=== PATIENT | male | born 1960 | race Caucasian/White ===

== ENCOUNTER 2020-05-01 22:25 | Inpatient (IN) | payer MEDICARE, MEDICAID ==
[~2020-05-01] VITALS: Ht 180.3 cm; Wt 87.8 kg
[2020-05-01 22:30] VITALS: BP 115/98
--- NOTE | 2020-05-01 22:30 | NUR ---
ED Nurse Note: Patient brought in by BLS ambulance from [facility] for altered mental status. Per EMS, pt is normally alert and oriented. Patient obtunded, nonverbal, does not respond to verbal stimuli. Patient placed on monitoring specialist. Patient per EMS also normally is on 2L nasal cannula, O2 sat upon assessment 100% Patient stable during assessment. ERMD at bedside. Noted some dried blood on exterior of left ear, no active bleeding. IV established on left AC 22g, sepsis workup drawn and blood cultures sent to lab. Urine collected and sent to lab. Patient had 1 BM prior to arrival, pt cleaned and changed. No acute distress noted. Addendum: 05/02/20 at 0012 by IOROPEL ED Nurse Note: Patient brought in by BLS ambulance from [facility] for altered mental status. Per EMS, unknown baseline d/t patient in process of being transferred to a different facility and [facility] is being evacuated. Patient obtunded, nonverbal, does not respond to verbal stimuli. Patient placed on monitoring specialist. Patient per EMS also normally is on 2L nasal cannula, O2 sat upon assessment 100% Patient stable during assessment. ERMD at bedside. Noted some dried blood on exterior of left ear, no active bleeding. IV established on left AC 22g, sepsis workup drawn and blood cultures sent to lab. Urine collected and sent to lab. Patient had 1 BM prior to arrival, pt cleaned and changed. No acute distress noted.
--- NOTE | 2020-05-01 22:43 | NUR ---
CALL INFO VLADISLAV,SON [phone]- NO ANSWER, LEFT VOICEMAIL MANUEL, BROTHER [phone]- NO ANSWER, LEFT VOICEMAIL XIMENA, NIECE [phone]. NO ANSWER
[2020-05-01] MEDS ORDERED: AMLODIPINE BESYL5 MG GT (22:48)
[2020-05-01] MEDS ORDERED: ASPIR 8181 MG GT (22:49)
[2020-05-01] MEDS ORDERED: DOCUSATE SODIU100 MG GT (22:50)
[2020-05-01] MEDS ORDERED: ZINC SULFATE220 M1 GT (22:51)
[2020-05-01] MEDS ORDERED: PROBIOTIC1 EAC2 GT (22:52)
[2020-05-01] MEDS ORDERED: MULTI-VITE9 MG/15 ML GT (22:53)
[2020-05-01] MEDS ORDERED: ALBUTEROL2.5 MG/3 M INH (22:53)
--- NOTE | 2020-05-01 22:53 | Emergency Room Report ---
History of Present Illness General Chief Complaint: Altered Mental Status Source: Medical Record, EMS Present Illness HPI This is an unfortunate 60-year-old male from shelter. He has a history of seizure and currently on Keppra. He is contracted and has a feeding tube. History is through the EMS personnel. He presents with chief complaint of altered mental status. Patient was in a nursing facility in [facility]. He tested positive for COVID on April 27. Per EMS, the vast majority of the patient there is positive for COVID. The whole place is being evacuated. They said that the nursing staff there walked out of the facility. Because of that, patients are being transferred out. This patient was sent from facility in [facility] to [facility]. Per EMS, they do not know what his baseline mental status is. 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 On arrival to the shelter here in [place], nursing staff assessed the patient. Patient noted to have dried blood to his left ear. He appeared to have disconjugate gaze and was lipsmacking. He does have a history of seizure and is currently taking Keppra. According to EMS, the medication list showed that he has not received any medications for 24 hours. They asked that the patient be transferred to the nearest ER for evaluation. I attempted to called the next of kin on his face sheet from the shelter. No answers from the 3 numbers listed. Nursing staff left a voicemail. There is no POLST on file. Unable to get any other history from this patient because he is nonverbal. 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 COVID-19 Screening: Positive COVID-19 COVID-19 Testing Source: outside facility Patient History Past Medical History: see triage record, old chart reviewed, HTN, CAD, seizures Past Surgical History: other - Feeding tube Pertinent Family History: none Social History: Denies: drug use Immunizations: other Reviewed Nursing Documentation: PMH: Agreed; PSxH: Agreed Nursing Documentation-PMH Hx Hypertension: Yes Hx COPD: Yes - chronic resp failure, pneumonitis Hx Seizures: Yes Review of Systems Constitutional: Reports: weakness Respiratory: Reports: shortness of breath All Other Systems: limited - Secondary to his condition and unknown baseline Physical Exam Vital Signs Date Time Temp Pulse Resp B/P (MAP) Pulse Ox O2 Delivery O2 Flow Rate FiO2 05/01/20 22:32 109 20 140/89 (106) 100 Nasal Cannula 2.0 Vitals with fever and hypoxia. Also with tachycardia Sp02 EP Interpretation: abnormal General Appearance: mild distress, Chronically Ill Head: normocephalic, atraumatic Eyes: bilateral eye PERRL, bilateral eye EOMI, bilateral eye other - Patient has disconjugate gaze. Unknown baseline. ENT: dry mucus membranes, other - Left ear: There is mild edema to the earlobe with dried blood. No active bleeding in the canal. Behind the ear there is maceration of the skin over the mastoid area. No crepitance. Neck: no bony tend Respiratory: chest non-tender, accessory muscle use, wheezing - Slight Cardiovascular #1: regular rate, rhythm, no murmur, tachycardia Gastrointestinal: normal bowel sounds, non tender, no mass, no organomegaly, no bruit, non-distended, other - Feeding tube intact Musculoskeletal: other - Patient is contracted Neurologic: other - Grimace to painful stimuli. Rhythmic movement of his mouth Psychiatric: other Medical Decision Making Diagnostic Impression: Primary Impression: Pneumonia due to COVID-19 virus Additional Impressions: SHERRIE (acute kidney injury) Acute metabolic encephalopathy Seizure Sepsis Qualified Codes: A41.9 - Sepsis, unspecified organism ER Course This patient presents with altered mental status. Positive for COVID on April 27. Chest x-ray consistent with COVID pneumonia. Antibiotics started. I also gave him steroid and Lovenox here. Has lipsmacking may be secondary to seizure. Better with Ativan. Keppra also given. CT head is negative for acute process. Will admit to the hospital for further work-up. I discussed the case with Dr. García for admission. EKG Diagnostic Results Rate: tachycardiac Rhythm: NSR ST Segments: no acute changes Rhythm Strip Diag. Results EP Interpretation: yes Rate: 100 Rhythm: NSR, no PVC's, no ectopy Chest X-Ray Diagnostic Results Chest X-Ray Diagnostic Results : Chest X-Ray Ordered: Yes # of Views/Limited/Complete: 1 View Indication: Shortness of Breath EP Interpretation: Yes Interpretation: no effusion, no pneumothorax, other - Right lower lobe infiltrate Impression: Other - Right lower lobe infiltrate and atelectasis Electronically Signed by: Kiran Brown MD CT/MRI/US Diagnostic Results CT/MRI/US Diagnostic Results : Imaging Test Ordered: CT head Impression No acute process per radiologist Last Vital Signs Date Time Temp Pulse Resp B/P (MAP) Pulse Ox O2 Delivery O2 Flow Rate FiO2 05/01/20 22:32 109 20 140/89 (106) 100 Nasal Cannula 2.0 Status: improved Disposition: ADMITTED INPATIENT Condition: Serious Referrals: NON PHYSICIAN (PCP) Kiran Brown MD May 01, 2020 22:53
[2020-05-01] MEDS ORDERED: FAMOTIDINE20 MG GT (22:54)
[2020-05-01] MEDS ORDERED: FERROUS SULFAT325 MG GT (22:55)
[2020-05-01] MEDS ORDERED: LEVETIRACETAM500 MG GT (22:56)
[2020-05-01] MEDS ORDERED: VITAMIN C500 M1 GT (22:57)
[2020-05-01] MEDS ORDERED: LIQUID PROTEIN54 ML GT (22:57)
[2020-05-01] MEDS ORDERED: HYDRALAZINE HCL10 MG GT (22:58)
[2020-05-01] MEDS ORDERED: LACTULOSE20 GM/301 GT (22:59)
[2020-05-01] MEDS ORDERED: levETIRAcetam 1,000mg/NS100ml 100 ML IVPB ONE (23:00)
[2020-05-01] MEDS ORDERED: LORazepam Inj 2mg/ml 1ml IV ONE (23:00)
[2020-05-01] MEDS ORDERED: Acetaminophen 650 MG SUPP RECTAL ONE (23:00)
[2020-05-01] MEDS ORDERED: MILK OF MA400 MG/51 GT (23:00)
[2020-05-01] MEDS ORDERED: TRAMADOL HCL50 MG GT (23:01)
[2020-05-01] MEDS ORDERED: TYLENOL EXTRA500 MG ORAL (23:02)
--- NOTE | 2020-05-01 23:09 | NUR ---
ED Nurse Note: Patient taken to CT in stable condition
[2020-05-01 23:10] LABS: BASOPHILS % (AUTO) 0.9 % (0.0-2.0); EOSINOPHILS % (AUTO) 0.5 % (0.0-3.0); HEMATOCRIT 38.3 % (42.0-52.0); HEMOGLOBIN 12.3 G/DL (14.2-18.0); LYMPHOCYTES % (AUTO) 31.4 % (20.0-45.0); MEAN CORPUSCULAR VOLUME 88 FL (80-99); MONOCYTES % (AUTO) 9.9 % (1.0-10.0); NEUTROPHILS % (AUTO) 57.3 % (45.0-75.0); PLATELET COUNT 189 K/UL (150-450); RED BLOOD COUNT 4.35 M/UL (4.70-6.10); RED CELL DISTRIBUTION WIDTH 13.5 % (11.6-14.8); WHITE BLOOD COUNT 4.6 K/UL (4.8-10.8)
[2020-05-01 23:10] LABS: APPEARANCE,URINE CLEAR; BILIRUBIN, URINE NEGATIVE (NEGATIVE); GLUCOSE, URINE (UA) NEGATIVE (NEGATIVE); KETONES,URINE NEGATIVE (NEGATIVE); LEUKOCYTE ESTERASE ,URINE NEGATIVE (NEGATIVE); NITRITE,URINE NEGATIVE (NEGATIVE); PH,URINE 6 (4.5-8.0); PROTEIN,URINE 2+ (NEGATIVE); UROBILINOGEN,URINE NORMAL MG/DL (0.0-1.0)
[2020-05-01 23:11] LABS: COLOR,URINE YELLOW
[2020-05-01] MEDS ORDERED: dexAMETHasone 10mg/ml Inj IV ONE (23:15)
[2020-05-01 23:26] LABS: ANION GAP 6 mmol/L (5-15); BLOOD UREA NITROGEN 40 mg/dL (7-18); CALCIUM 8.8 MG/DL (8.5-10.1); CARBON DIOXIDE 32 MMOL/L (21-32); CHLORIDE 103 MMOL/L (98-107); CREATININE 1.6 MG/DL (0.55-1.30); POTASSIUM 4.4 MMOL/L (3.5-5.1); SODIUM 141 MMOL/L (136-145)
[2020-05-01] MEDS ORDERED: Azithromycin 500 MG in NS 275 ML IV ONE (23:30)
[2020-05-01] MEDS ORDERED: cefTRIAXone 1 GM in NS 55 ML IVPB ONE (23:30)
[2020-05-01] MEDS ORDERED: Enoxaparin 100mg Inj SUBQ ONE (23:30)
[2020-05-01 23:42] LABS: ALANINE AMINOTRANSFERASE 66 U/L (12-78); ALBUMIN 3.3 G/DL (3.4-5.0); ALBUMIN/GLOBULIN RATIO 0.5 (1.0-2.7); ALKALINE PHOSPHATASE 102 U/L (46-116); ASPARTATE AMINO TRANSFERASE 53 U/L (15-37); BILIRUBIN,TOTAL 0.2 MG/DL (0.2-1.0); FERRITIN 268 NG/ML (8-388)
--- NOTE | 2020-05-01 23:51 | Diagnostic Imaging Report ---
CT head without contrast History: Altered mental status Technique: Axial noncontrast head CT with coronal, sagittal reformatted images. Technique more: CTDI is 53.4 mGy and DLP is 1045 mGy-cm. Technique more: One or more of the following dose reduction techniques were used: automated exposure control, adjustment of the mA and/or kV according to patient size, use of iterative reconstruction technique. Comparison: None Findings: Amador-white matter differentiation is seen to be normal. 1 cm old lacunar infarcts noted in the left periventricular white matter and basal ganglia. Small old lacunar infarcts in medial aspect of left greater than right thalamus. Small lacunar Infarct in the right putamen. Involutional changes are seen especially in the posterior fossa. Fourth ventricle, cerebellopontine angles are normal. Valerian degeneration is seen in the left cerebral peduncle. Paranasal sinuses, mastoid air cells are noted to be normal. IMPRESSION: 1. No acute intracranial finding. 2. Bilateral old lacunar infarcts.
[2020-05-02] VITALS: BP 123/84
[2020-05-02] MEDS ORDERED: Acetaminophen 650 MG SUPP RECTAL PRN
--- NOTE | 2020-05-02 00:18 | NUR ---
ED Nurse Note: Report given to ANUSHA Arredondo.
--- NOTE | 2020-05-02 00:25 | NUR ---
TRANSFER TO FLOOR: Patient transferred to telemetry as ordered, per ERMD. Report given to ANUSHA Arredondo. Patient transported via gurney on ACLS protocol with cardiac specialist accompanied by RN and tire technician in stable condition.
--- NOTE | 2020-05-02 01:36 | NUR ---
NURSE NOTES: Received patient report from LEANNA Mercer RN. Patient shows no signs of distress or pain at the time. Patient is AO x0 and non verbal. Patient is contacted on the right arm and bilateral legs and feet. Patient showed many pressure ulcers on feet and buttocks, pictures were taken. IV site is intact and patent. There are no signs of erythema, infiltration, or bleeding. Patient arrived to unit on 2 L nasal canula and saturating at 98%. Vitals are within range. Bed is in the lowest position, side rails up x3 and padded, and call light is within reach. Will continue plan of care.
[2020-05-02 04:00] VITALS: BP 129/82
[2020-05-02 04:57] LABS: HEMATOCRIT 34.4 % (42.0-52.0); HEMOGLOBIN 10.8 G/DL (14.2-18.0); MEAN CORPUSCULAR VOLUME 88 FL (80-99); PLATELET COUNT 160 K/UL (150-450); RED BLOOD COUNT 3.91 M/UL (4.70-6.10); WHITE BLOOD COUNT 3.3 K/UL (4.8-10.8)
[2020-05-02 05:05] LABS: ANION GAP 6 mmol/L (5-15); BLOOD UREA NITROGEN 35 mg/dL (7-18); CARBON DIOXIDE 28 MMOL/L (21-32); CHLORIDE 108 MMOL/L (98-107); CREATININE 1.4 MG/DL (0.55-1.30); POTASSIUM 4.8 MMOL/L (3.5-5.1); SODIUM 142 MMOL/L (136-145)
--- NOTE | 2020-05-02 07:39 | NUR ---
NURSE HAND-OFF REPORT: Important Events on Shift:Patient had over 10 cc of residual. Patient Status: Diet: Pending Orders: Pending Results/Labs: Pending MD notification: Latest Vital Signs: Temperature 98.8 , Pulse 90 , B/P 129 /82 , Respiratory Rate 28 , O2 SAT 95 , Nasal Cannula, O2 Flow Rate 2.0 . Vital Sign Comment: EKG Rhythm: Sinus Rhythm Rhythm change?: N MD Notified?: - MD Response: Latest Bergman Fall Score: 55 Fall Risk: High Risk Safety Measures: Call light Within Reach, Bed Alarm Zone 2, Side Rails Side Rails x2, Bed position Low and Locked. Fall Precautions: Yellow Socks Yellow Gown Patient Fall Education Report given to .
[2020-05-02 08:00] VITALS: BP 109/79
--- NOTE | 2020-05-02 08:00 | NUR ---
NURSE NOTES: Received pt from ANUSHA Arredondo. Pt Alert, non verbal. No s/s of acute respiratory and cardiac distress. On O2 2L NC. G-tube feeding running @ 20 cc/hr. SL on left AC, asymptomatic, patent and intact. F/C draining by gravity. Side rails padded. Bed in low position, side rails up x3 and call light within reach. Will continue to monitor.
[2020-05-02 09:47] LABS: ALANINE AMINOTRANSFERASE 59 U/L (12-78); ALBUMIN 2.7 G/DL (3.4-5.0); ALKALINE PHOSPHATASE 81 U/L (46-116); ASPARTATE AMINO TRANSFERASE 44 U/L (15-37); BILIRUBIN,DIRECT 0.1 MG/DL (0.0-0.3); BILIRUBIN,TOTAL 0.2 MG/DL (0.2-1.0); PHOSPHORUS 3.1 MG/DL (2.5-4.9)
[2020-05-02 10:26] LABS: % IRON SATURATION 11 % (15-50); IRON 22 ug/dL (50-175); TOTAL IRON BINDING CAPACITY 194 ug/dL (250-450)
--- NOTE | 2020-05-02 10:43 | Consultation ---
Consult Note Consult Note Asked to evaluate the patient at the request of Dr. Colon for renal failure and fluid and electrolyte management Chief Complaint: Altered Mental Status This is an unfortunate 60-year-old male from half-way. He has a history of seizure and currently on Keppra. He is contracted and has a feeding tube. History is through the EMS personnel. He presents with chief complaint of altered mental status. Patient was in a nursing facility in [facility]. He tested positive for COVID on April 27. Per EMS, the vast majority of the patient there is positive for COVID. The whole place is being evacuated. They said that the nursing staff there walked out of the facility. Because of that, patients are being transferred out. This patient was sent from facility in [facility] to [facility]. Per EMS, they do not know what his baseline mental status is. 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 On arrival to the half-way here in [place], nursing staff assessed the patient. Patient noted to have dried blood to his left ear. He appeared to have disconjugate gaze and was lipsmacking. He does have a history of seizure and is currently taking Keppra. According to EMS, the medication list showed that he has not received any medications for 24 hours. They asked that the patient be transferred to the nearest ER for evaluation. 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 Also with tachycardia Patient is nonverbal PHYSICAL EXAMINATION: VITAL SIGNS: Blood pressure is 140/89, respirations of 20, pulse of 109, and O2 saturation 100% on 2 L oxygen via nasal cannula. GENERAL: The patient is a very unfortunate 60-year-old chronically ill patient in mild distress. HEENT: Atraumatic and normocephalic. Anicteric. Pupils are equal, round, and reactive to light and accommodation. Extraocular muscles intact. The patient has a dysconjugate gaze. Positive dry mucosal membranes. Left ear with mild edema and dry blood. No active bleeding. NECK: JVP less than 5 cm. CARDIOVASCULAR: Normal S1, S2. Regular rhythm, tachycardic. No murmurs, gallops, or rubs. LUNGS: Clear to auscultation bilaterally. ABDOMEN: Soft, nontender, and nondistended. No hepatosplenomegaly. Presence of a G-tube. EXTREMITIES: Grimace to painful stimuli. Contracted limbs. Rhythmic movement of his mouth was appreciated. No edema, clubbing, or cyanosis. LABORATORY FINDINGS: Sodium was 141, potassium 4.4, chloride 103, bicarbonate 32, BUN 40, creatinine 1.6. Glucose 106. Calcium is 8.8. Troponin I 0.001. WBC 4.6, hemoglobin 12.3, hematocrit 38.3, and platelet count 189,000. D-dimer is 4.65. CT of head showed no acute intracranial findings. Bilateral old lacunar infarct. . Assessment/Plan Acute renal failure. Patient presents with serum creatinine of 1.6. Underlying chronic renal insufficiency. Serum creatinine 1.4 after hydration. Pneumonia due to COVID-19 virus Acute metabolic encephalopathy Seizures Sepsis Nonverbal, with GT feeding Anemia Per ID Monitor renal parameters Albumin bolus Per orders Adal Kenney MD May 02, 2020 10:43
[2020-05-02] MEDS ORDERED: HydrALAZINE 10mg Tab GT PRN (10:45)
[2020-05-02] MEDS ORDERED: traMADol 50mg tab GT PRN (10:45)
--- NOTE | 2020-05-02 10:54 | NUR ---
RD ASSESSMENT & RECOMMENDATIONS SEE CARE ACTIVITY FOR COMPLETE ASSESSMENT DAILY ESTIMATED NEEDS: Needs based on Pulmonary, wound 80.5kg abw 23-28 kcals/kg 7847-5844 total kcals 1.25-1.5 g protein/kg 101-121 g total protein 25-30 mL/kg 3562-6262 total fluid mLs NUTRITION DIAGNOSIS: Swallowing difficulty r/t dysphagia as evidenced by Pt is GT dep. CURRENT TF: Jevity 1.2 @20 ENTERAL NUTRITION RECOMMENDATIONS: Glucerna 1.5 @55ml/hr x24 hrs to provide 1320ml, 1980 kcal, 109g pro, 1002ml free H2O - Rec TF change to carb control formula as pt presents w/ elev BG on low rate of non carb control TF and on steroidal meds at this time. - Start Glucerna 1.5 @25ml/hr for 6 hrs. Advance as tolerated 10ml/hr q4-6 hrs to goal. - Flush per MD. HOB over 30 degrees. ADDITIONAL RECOMMENDATIONS: 1) Maintain calibrated bed scale wts 2) BG mildly elev (156), rec above carb control formula while on decadron 3) Check lytes, replete as needed (wnl) 4) Rec WC eval 5) NISS on TF's
[2020-05-02] MEDS: levETIRAcetam 500mg/5ml Liquid GT SCH ×2 (11:52→20:47)
[2020-05-02 12:00] VITALS: BP 107/70
[2020-05-02] MEDS: Docusate 100mg/10ml Liq GT SCH ×2 (13:16→17:31)
[2020-05-02] MEDS: cefTRIAXone 1 GM in D5W 55 ML IVPB SCH (15:16)
[2020-05-02 16:00] VITALS: BP 127/82
--- NOTE | 2020-05-02 16:04 | Diagnostic Imaging Report ---
Indication: Cough Technique: One view of the chest Comparison: none Findings: There is mild bilateral interstitial prominence and bronchial wall thickening. The heart is borderline enlarged. The left lateral hemidiaphragm is somewhat obscured. There is some atelectasis adjacent to the left cardiac apex Impression: Mild interstitial prominence and bronchial wall thickening, acuity indeterminate, could indicate interstitial edema or chronic changes Borderline cardiomegaly
--- NOTE | 2020-05-02 16:15 | Consultation ---
DATE OF CONSULTATION: 05/02/2020 PULMONARY CONSULTATION CONSULTING PHYSICIAN: Yoseph Khoury MD. REASON FOR CONSULTATION: Altered mental status and pneumonia. HISTORY OF PRESENT ILLNESS: This is a 60-year-old male, who is a shelter resident. He has a history of seizure disorder and is on Keppra. The patient was brought in after being testing positive for COVID-19. The patient was evaluated and admitted to the hospital. The patient has a history of seizure disorder and has a chronic G-tube. PAST MEDICAL HISTORY: Notable for hypertension, CAD, and seizures. There is also history of COPD. PAST SURGICAL HISTORY: Chronic G-tube. REVIEW OF SYSTEMS: Not obtainable. PHYSICAL EXAMINATION: GENERAL: Reveals a 60-year-old male. VITAL SIGNS: Blood pressure 140/80, heart rate 104, respirations 20, he is afebrile, and O2 saturation is 100% on nasal oxygen. HEENT: Unremarkable. CHEST: Shows diminished breath sounds bilaterally with normal heart sounds. ABDOMEN: Soft. EXTREMITIES: There is no edema. He has bilateral upper extremity contractures. LABORATORY DATA: Lab testing shows white count 3.3, hemoglobin 10.8, platelet count is normal. Creatinine 1.4. Albumin is 2.7. Head CT was done, which was negative. IMPRESSION: 1. COVID-19 pneumonia. 2. Normoxemia. 3. Metabolic encephalopathy. 4. Seizure disorder. DISCUSSION: I have reviewed his x-ray and there are bilateral infiltrates. I suspect he has COVID-19 pneumonia. He received steroids and Lovenox. He is having lip-smacking movements, which maybe seizure disorder. He was given Keppra. Recommend Neurology and ID evaluation. 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 We will order pulmonary hygiene. Yoseph Khoury M.D. DR: MALGORZATA JOB#: [id number] CC:
--- NOTE | 2020-05-02 16:29 | NUR ---
NURSE NOTES:WOUND CARE NOTES:Pt presented on admission with scabbed lesion Medial L ear canal and L earlobe. Dried blood also noted to fingers of L hand. Bilat hands are contracted. L Hand is more tightly fisted in comparison to R hand. Peristomal Gastrostomy site is pale pink and dry. Site cleansed and left open to air. Resolving Pressure injury Sacrum/R Buttocks(L)19.5cm x (W)7cm. Base of wound is pink, indurated with scattered epithelial areas. No erythema noted. Pt did not exhibit any signs of distress or discomfort when affected areas palpated. Several dry scabbed scratches noted to myra/medial upper R thigh. No erythema noted. Bilat foot drop noted. Pt is pigeon -toed and moves both feet restlessly against each other placing skin at risks for skin breakdown. Scattered dry scabs noted to dorsal aspects of both feet.No surrounding erythema or elevation in skin temp noted. Both heels are soft with non-blanching erythema. R and L Hallux protrudes but each area are pink and blanchable. Interventions:R ear swabbed with Betadine. Moisture Barrier Paste applied to Sacrum. Covered with Optifoam drsg. Cavilon Skin Barrier applied to R and L trochanteric areas and each covered with Optifoam drsgs. Scabs dorsal R and L foot each swabbed with Betadine.Cavilon skin barrier applied to malleoli both feet and each covered with Optifoam drsgs. Cavilon Skin Barrier applied to each heels and each heel covered with Optifoam drsgs. In addition abd pads placed around both feet and each foot wrapped with Kerlix to minimize further skin breakdown secondary to restlessness of feet.Pt positioned with pillow on his side and with both heels floated off mattress with pillows. Tx.Plan: Apply Betadine to R ear Daily and prn. Apply Moisture Barrier Paste to Sacrum/R Buttocks. Cover with Optifoam drsg. Change every 3 days and prn. Apply Betadine to upper R thigh , dorsal R and L foot. Cover each area with Optifoam drsg every 3 days and prn. Apply Cavilon Skin Barrier to both heels. Cover each heel with Optifoam drsg. Change every 7 days and prn. Cover each foot with ABD Pads. Wrap with Kerlix. Change every 3 days and prn. Reposition at least every 2hours or as tolerated. Place Pillow between knees. Off-load heels with pillow.
--- NOTE | 2020-05-02 16:38 | NUR ---
CASE MANAGEMENT:INITIAL REVIEW 60YR OLD MALE BIBA FROM [facility] CC: ALTER MENTAL STATUS HX: SEIZURE; FEEDING TUBE SI: COVID-19 + PNA. SEPSIS . SHERRIE . SEIZURE 101.2 109 36 115/98 100% NC 2L D-DIMER 4.65 WBC 4.6 BUN/CREAT 40/1.6 AST 53 ALB 3.3 IS:IV DECADRON X1 IV ZITHROMAX X1 IV ROCEPHIN X1 IVF NS BOLUS X1 IV ATIVAN X1 IV KEPPRA X1 TYLENOL MT X1 LOVENOX SQ X1 CT HEAD- No acute intracranial finding. Bilateral old lacunar infarcts. XRAY Chest 1v-Mild interstitial prominence and bronchial wall thickening, acuity indeterminate, could indicate interstitial edema or chronic changes. Borderline cardiomegaly \: 2E TELE UNIT DCP:[facility] WHEN STABLE PLAN: BLOOD CX~PENDING NPO OXYGEN THERAPY COVID-19 ISOLATION
--- NOTE | 2020-05-02 16:47 | Cardiology Progress Note ---
Assessment/Plan Assessment/Plan The patient is seen and examined, full consult note is dictated. Objective Last 24 Hour Vital Signs Date Time Temp Pulse Resp B/P (MAP) Pulse Ox O2 Delivery O2 Flow Rate FiO2 05/02/20 12:00 98.2 81 20 107/70 (82) 96 05/02/20 12:00 Nasal Cannula 2.0 05/02/20 12:00 84 05/02/20 08:00 96.8 83 20 109/79 (89) 95 05/02/20 08:00 81 05/02/20 04:00 98.8 90 28 129/82 (98) 95 05/02/20 04:00 90 05/02/20 02:04 Nasal Cannula 2.0 05/02/20 00:38 98 05/02/20 00:25 99.1 103 24 119/81 100 Nasal Cannula 2.0 05/02/20 00:00 99.1 94 26 123/84 (97) 96 05/01/20 23:29 99.1 05/01/20 22:32 109 20 140/89 (106) 100 Nasal Cannula 2.0 05/01/20 22:30 109 36 Nasal Cannula 2.0 05/01/20 22:30 101.2 109 36 115/98 100 Nasal Cannula 2.0 Intake and Output 05/01/20 05/02/20 19:00 07:00 Intake Total 1430 ml Output Total 300 ml Balance 1130 ml Intake Oral 0 ml IV Total 1430 ml Output Urine Total 300 ml # Voids 1 # Bowel Movements 2 Laboratory Tests Test 05/01/20 22:40 05/01/20 22:45 05/02/20 04:00 05/02/20 09:10 White Blood Count 4.6 K/UL (4.8-10.8) L 3.3 K/UL (4.8-10.8) L Red Blood Count 4.35 M/UL (4.70-6.10) L 3.91 M/UL (4.70-6.10) L Hemoglobin 12.3 G/DL (14.2-18.0) L 10.8 G/DL (14.2-18.0) L Hematocrit 38.3 % (42.0-52.0) L 34.4 % (42.0-52.0) L Mean Corpuscular Volume 88 FL (80-99) 88 FL (80-99) Mean Corpuscular Hemoglobin 28.1 PG (27.0-31.0) 27.7 PG (27.0-31.0) Mean Corpuscular Hemoglobin Concent 32.0 G/DL (32.0-36.0) 31.4 G/DL (32.0-36.0) L Red Cell Distribution Width 13.5 % (11.6-14.8) 13.0 % (11.6-14.8) Platelet Count 189 K/UL (150-450) 160 K/UL (150-450) Mean Platelet Volume 10.5 FL (6.5-10.1) H 9.2 FL (6.5-10.1) Neutrophils (%) (Auto) 57.3 % (45.0-75.0) % (45.0-75.0) Lymphocytes (%) (Auto) 31.4 % (20.0-45.0) % (20.0-45.0) Monocytes (%) (Auto) 9.9 % (1.0-10.0) % (1.0-10.0) Eosinophils (%) (Auto) 0.5 % (0.0-3.0) % (0.0-3.0) Basophils (%) (Auto) 0.9 % (0.0-2.0) % (0.0-2.0) D-Dimer 4.65 mg/L FEU (0.00-0.49) H Sodium Level 141 MMOL/L (136-145) 142 MMOL/L (136-145) Potassium Level 4.4 MMOL/L (3.5-5.1) 4.8 MMOL/L (3.5-5.1) Chloride Level 103 MMOL/L (98-107) 108 MMOL/L (98-107) H Carbon Dioxide Level 32 MMOL/L (21-32) 28 MMOL/L (21-32) Anion Gap 6 mmol/L (5-15) 6 mmol/L (5-15) Blood Urea Nitrogen 40 mg/dL (7-18) H 35 mg/dL (7-18) H Creatinine 1.6 MG/DL (0.55-1.30) H 1.4 MG/DL (0.55-1.30) H Estimat Glomerular Filtration Rate 44.0 mL/min (>60) 51.4 mL/min (>60) Glucose Level 106 MG/DL (74-106) 156 MG/DL (74-106) H Lactic Acid Level 1.10 mmol/L (0.4-2.0) Calcium Level 8.8 MG/DL (8.5-10.1) 8.0 MG/DL (8.5-10.1) L Ferritin 268 NG/ML (8-388) Total Bilirubin 0.2 MG/DL (0.2-1.0) 0.2 MG/DL (0.2-1.0) Aspartate Amino Transf (AST/SGOT) 53 U/L (15-37) H 44 U/L (15-37) H Alanine Aminotransferase (ALT/SGPT) 66 U/L (12-78) 59 U/L (12-78) Alkaline Phosphatase 102 U/L (46-116) 81 U/L (46-116) Troponin I 0.001 ng/mL (0.000-0.056) C-Reactive Protein, Quantitative 2.5 mg/dL (0.00-0.90) H Total Protein 10.3 G/DL (6.4-8.2) H 8.7 G/DL (6.4-8.2) H Albumin 3.3 G/DL (3.4-5.0) L 2.7 G/DL (3.4-5.0) L Globulin 7.0 g/dL Albumin/Globulin Ratio 0.5 (1.0-2.7) L Urine Color Yellow Urine Appearance Clear Urine pH 6 (4.5-8.0) Urine Specific [place] 1.015 (1.005-1.035) Urine Protein 2+ (NEGATIVE) H Urine Glucose (UA) Negative (NEGATIVE) Urine Ketones Negative (NEGATIVE) Urine Blood Negative (NEGATIVE) Urine Nitrite Negative (NEGATIVE) Urine Bilirubin Negative (NEGATIVE) Urine Urobilinogen Normal MG/DL (0.0-1.0) Urine Leukocyte Esterase Negative (NEGATIVE) Urine RBC 0-2 /HPF (0 - 0) H Urine WBC 0-2 /HPF (0 - 0) Urine Squamous Epithelial Cells Occasional /LPF Urine Bacteria Occasional /HPF (NONE) Uric Acid 8.3 MG/DL (2.6-7.2) H Phosphorus Level 3.1 MG/DL (2.5-4.9) Magnesium Level 2.1 MG/DL (1.8-2.4) Iron Level 22 ug/dL (50-175) L Total Iron Binding Capacity 194 ug/dL (250-450) L Percent Iron Saturation 11 % (15-50) L Unsaturated Iron Binding 172 ug/dL (112-346) Direct Bilirubin 0.1 MG/DL (0.0-0.3) Vitamin B12 Level 1007 PG/ML (193-986) H Folate 27.4 NG/ML (8.6-58.9) Thyroid Stimulating Hormone (TSH) 0.357 uiU/mL (0.358-3.740) Microbiology Date/Time Source Procedure Growth Status 05/02/20 11:57 Nasopharynx SARS-CoV-2 RdRp Gene Assay - Final Complete Timothy Vizcaino MD May 02, 2020 16:47
--- NOTE | 2020-05-02 19:15 | Consultation ---
DATE OF CONSULTATION: 05/02/2020 CARDIOLOGY CONSULTATION CONSULTING PHYSICIAN: Timothy Vizcaino MD. REFERRING PHYSICIAN: Juan J Navarro MD. REASON FOR CONSULTATION: Management of tachycardia and shortness of breath. HISTORY OF PRESENT ILLNESS: The patient is a very unfortunate 60-year-old gentleman who is a resident of a nursing facility. He was tested positive for COVID-19 infection on April 27. The patient was brought to this facility as he was found to have dried blood within the left ear and also had trouble with disconjugate gaze and lip smacking. The patient has history of seizures and has been on Keppra for seizure preventive measures. At the time of evaluation in the emergency department, the patient had blood pressure 140/89 mmHg and heart rate of 109. A 12-lead electrocardiogram in the emergency department showed sinus tachycardia at a rate of 110 with normal axis, prolongation of QT interval, but no acute ischemic features. Chest x-ray was significant for cardiomegaly and mild bilateral pulmonary edema. Laboratory findings in the emergency department revealed elevation of D-dimer at 4.65, elevation of BUN and creatinine of 40 and 1.6 respectively, as well as WBC count of 4.6, hemoglobin of 12.3. Troponin I level was 0.001, within normal limit. The patient was admitted to telemetry for further evaluation and management of shortness of breath and altered level of consciousness. Cardiology consultation was made at request of Dr. Navarro to manage tachycardia and shortness of breath in a patient with COVID-19 infection. PAST MEDICAL HISTORY: 1. Seizure disorder. 2. Hypertension. 3. Coronary artery disease. 4. Dysphagia, status post PEG placement. 5. Chronic respiratory failure. PAST SURGICAL HISTORY: PEG placement. ALLERGIES: No known drug allergies. MEDICATIONS: List of medications in the nursing facility include acetaminophen 650 mg per G-tube q.6 hours p.r.n. temperature above 100.5, albuterol inhaler, amlodipine 5 mg G-tube daily, vitamin C 500 mg G-tube twice daily, aspirin 81 mg G-tube daily, Colace 100 mg G-tube daily, famotidine 20 mg G-tube daily, ferrous sulfate 325 mg G-tube twice daily, hydralazine 10 mg G-tube q.4 hours, probiotic one tablet G-tube daily, lactulose 30 mL G-tube daily p.r.n. constipation, Keppra 500 mg G-tube twice daily, milk of magnesia 30 mL G-tube daily, multivitamin liquid 5 mg G-tube daily, liquid protein fortifier 30 mL G-tube twice daily, tramadol 50 mg G-tube twice daily, and zinc sulfate 220 mg G-tube daily. REVIEW OF SYSTEMS: In view of altered level of consciousness, the patient is currently nonverbal and 12-system review cannot be obtained. SOCIAL HISTORY: There is no prior history of tobacco, alcohol, or illicit drug use. PHYSICAL EXAMINATION: VITAL SIGNS: Blood pressure is 140/89, respirations of 20, pulse of 109, and O2 saturation 100% on 2 L oxygen via nasal cannula. GENERAL: The patient is a very unfortunate 60-year-old chronically ill patient in mild distress. HEENT: Atraumatic and normocephalic. Anicteric. Pupils are equal, round, and reactive to light and accommodation. Extraocular muscles intact. The patient has a dysconjugate gaze. Positive dry mucosal membranes. Left ear with mild edema and dry blood. No active bleeding. NECK: JVP less than 5 cm. CARDIOVASCULAR: Normal S1, S2. Regular rhythm, tachycardic. No murmurs, gallops, or rubs. LUNGS: Clear to auscultation bilaterally. ABDOMEN: Soft, nontender, and nondistended. No hepatosplenomegaly. Presence of a G-tube. EXTREMITIES: Grimace to painful stimuli. Contracted limbs. Rhythmic movement of his mouth was appreciated. No edema, clubbing, or cyanosis. LABORATORY FINDINGS: Sodium was 141, potassium 4.4, chloride 103, bicarbonate 32, BUN 40, creatinine 1.6. Glucose 106. Calcium is 8.8. Troponin I 0.001. WBC 4.6, hemoglobin 12.3, hematocrit 38.3, and platelet count 189,000. D-dimer is 4.65. CT of head showed no acute intracranial findings. Bilateral old lacunar infarct. ASSESSMENT AND PLAN: The patient is a very unfortunate 60-year-old gentleman seen in Cardiology consultation. 1. Sinus tachycardia. This is due to hypoxemia versus infection/sepsis versus severe intravascular volume contraction. It appears that the patient in prerenal picture and contraction alkalosis with bicarbonate of 32 is mostly in favor of intravascular volume contraction. The patient requires to be well hydrated. 2. Dyspnea, most likely COVID-19 pneumonitis. We will like to obtain brain-natriuretic peptide. We will have 2D echocardiography to assess LV systolic and diastolic function. 3. Further therapeutic and diagnostic decision will be based on the results of above studies. I would like to thank Dr. Navarro for the courtesy of this consultation. Timothy Vizcaino M.D. DR: JOHANNE JOB#: [id number] CC:
--- NOTE | 2020-05-02 19:32 | NUR ---
NURSE HAND-OFF REPORT: Important Events on Shift:[] Patient Status: [] Diet: [] Pending Orders: [] Pending Results/Labs:[] Pending MD notification:[] Latest Vital Signs: Temperature 97.7 , Pulse 89 , B/P 127 /82 , Respiratory Rate 18 , O2 SAT 100 , Nasal Cannula, O2 Flow Rate 2.0 . Vital Sign Comment: [] EKG Rhythm: Sinus Rhythm Rhythm change?: N MD Notified?: - MD Response: Latest Bergman Fall Score: 55 Fall Risk: High Risk Safety Measures: Call light Within Reach, Bed Alarm Zone 2, Side Rails Side Rails x3, Bed position Low and Locked. Fall Precautions: Yellow Socks Yellow Gown Report given to [ANUSHA Ervin].
--- NOTE | 2020-05-02 19:33 | NUR ---
NURSE NOTES: Got report from Renita TAVARES. Pt in stable condition. No s/s of distress or discomfort noted. Pt is Covid+. Pt is on seizure precaution siderails padded. Pt is A+OX0 nonverbal bedbound. Pt is on alarm security or surveillance monitor running Sinus Rhythm to Tachycardia(low 100s). Pt is on Room Air sating 94%. Pt is on tube feeding Jevity 1.2@20mL/hr no residual noted. Skin issues noted optifoam intact. Pt has L AC 22g saline locked. Pt has 16fr landeros catheter intact draining to gravity. Pt resting in bed comfortably. Bed in low and locked position, call light within reach, bedside table within reach. Continue to monitor.
[2020-05-02 20:00] VITALS: BP 122/85
[2020-05-02] MEDS: Acetaminophen 650mg/20.3ml GT PRN (20:50)
--- NOTE | 2020-05-02 21:45 | Consultation ---
DATE OF CONSULTATION: 05/02/2020 INFECTIOUS DISEASE CONSULTATION CONSULTING PHYSICIAN: Otoniel Narayan M.D. PRIMARY ATTENDING: Juan J Navarro M.D. REASON FOR CONSULT: Sepsis, COVID-19 disease. HISTORY OF PRESENT ILLNESS: A 60-year-old white male admitted yesterday from a assisted facility because of altered mental status. The patient has a history of seizure disorder, disconjugate gaze and lip smacking. Patient was transferred from a nursing facility in [place] that was highly hit by coronavirus epidemic and all of the residents were evacuated. Patient was transferred to [facility]. At the time of admission, he had a fever with a temperature 101.3, tachycardia with pulse rate of 109. PAST MEDICAL HISTORY: Has history of CVA, aphasia, contracture, seizure disorder, hypertension. He is status post gastrostomy. ALLERGIES: No known drug allergy. MEDICATIONS: Aspirin, famotidine, Colace, Keppra, Tylenol, hydralazine, tramadol Get a dose of ceftriaxone, Zithromax, and dexamethasone in ER SOCIAL HISTORY: [facility] resident. No other history is obtainable. PHYSICAL EXAMINATION: VITAL SIGNS: Temperature 98.2, pulse 81, blood pressure. GENERAL APPEARANCE: No acute distress. normal weight. HEAD AND NECK: [place] conjunctivae. HEART: Normal rate. LUNGS: Clear. ABDOMEN: Soft. G-tube in place. Slight erythematous area around the G-tube. EXTREMITIES: No edema. Contractures of the ankle. GENITOURINARY: Has Gonzales catheter. LABORATORY DATA: WBC 3.3, hemoglobin 10.8, hematocrit 34.4, platelet is 160. Sodium 142, potassium 4.2, chloride 108, bicarb 28, BUN 35, creatinine is 1.4. Creatinine at the time of admission was 1.6. AST is a little elevated at 44. At the time of admission, it was 62. ALT is normal. CRP is elevated, 2.5. COVID-19 test was positive. Chest x-ray of poor quality because of rotation but seems clear. CT scan of the head showed bilateral old lacunar infarcts. IMPRESSION: 1. Sepsis with fever, and tachycardia. 2. COVID-19 disease. 3. Pressure ulcers. There was some bleeding ulcers in left ear. 4. Status post CVA with aphasia. 5. G-tube status. 6. COPD. 7. Hypertension. 8. Seizure disorder. 9. Anemia. 10. Acute renal failure. RECOMMENDATION: Continue with ceftriaxone. We will follow up the cultures.Will check oxygen saturation in room air. At the end of my exam, I thank Dr. Navarro for involving me in the care of this patient. Otoniel Narayan M.D. DR: SLY JOB#: [id number] CC: AMBREEN
--- NOTE | 2020-05-02 22:00 | NUR ---
NURSE NOTES: Notified Dr. Navarro about Ca:8.0 Uric Acid:8.3 Iron:22. called back and said no new orders. Continue to monitor.
--- NOTE | 2020-05-02 22:30 | History and Physical Report ---
DATE OF ADMISSION: 05/01/2020 REASON FOR ADMISSION: Sepsis, COVID pneumonia. The patient tested COVID positive initially on 04/27/20. The patient's x-ray shows bilateral infiltrate. The patient also has acute renal failure, is admitted for positive COVID pneumonia. The patient's basically chief complaint was altered mental status, was in a fpc. The patient is being transferred from the facility that he was originally in. The patient is a poor historian. The patient is nonverbal, cannot get any history from the patient. PAST MEDICAL HISTORY: Patient has history of seizures, history of dementia. Does have history of CAD and hypertension, possible history of CVA in the past, constipation, iron-deficiency anemia, and GERD. PAST SURGICAL HISTORY: PEG. ALLERGIES: No known allergies. FAMILY HISTORY: Unable to obtain. SOCIAL HISTORY: Unable to obtain. REVIEW OF SYSTEMS: Unable to obtain, nonverbal. MEDICATIONS: Tramadol, Colace, aspirin, vitamin C, amlodipine, hydralazine, ferrous sulfate, and Keppra. PHYSICAL EXAMINATION: VITAL SIGNS: Temperature is 98.8, pulse is 90, blood pressure 139/80. HEENT: PERRLA. NECK: Supple. No lymphadenopathy. CHEST: Clear to auscultation. CARDIOVASCULAR: Regular rate and rhythm. No murmurs or extra sounds. GASTROINTESTINAL: Soft. Positive bowel sounds. G-tube site is intact. NEUROLOGICAL: Does not follow neurological exam. Reflexes are equal on both sides. LABORATORY DATA: WBC of 4.6, hemoglobin of 12.3, platelets 189. Sodium is 142, potassium 4.8, BUN of 35, creatinine 1.4, glucose of 156. ASSESSMENT AND PLAN: COVID-positive pneumonia acute renal failure, altered mental status. I have basically consulted Dr. Khoury, Dr. Otoniel Narayan, Dr. Vizcaino, and Dr. Kenney for the azotemia and to rule out any cardiomyopathy related to COVID and also for the treatment of the COVID. Antibiotics per Dr. Otoniel Narayan. Juan J Navarro M.D. DR: OLAMIDE JOB#: [id number] CC:
[2020-05-03] VITALS: BP 128/81
[2020-05-03 04:00] VITALS: BP 114/82
[2020-05-03 06:44] LABS: BASOPHILS % (AUTO) 0.4 % (0.0-2.0); HEMATOCRIT 32.2 % (42.0-52.0); HEMOGLOBIN 10.3 G/DL (14.2-18.0); MEAN CORPUSCULAR VOLUME 88 FL (80-99); MONOCYTES % (AUTO) 10.2 % (1.0-10.0); NEUTROPHILS % (AUTO) 68.4 % (45.0-75.0); PLATELET COUNT 177 K/UL (150-450); RED BLOOD COUNT 3.66 M/UL (4.70-6.10); WHITE BLOOD COUNT 4.7 K/UL (4.8-10.8)
[2020-05-03 07:05] LABS: ALANINE AMINOTRANSFERASE 78 U/L (12-78); ALBUMIN 2.8 G/DL (3.4-5.0); ALBUMIN/GLOBULIN RATIO 0.5 (1.0-2.7); ALKALINE PHOSPHATASE 84 U/L (46-116); ANION GAP 5 mmol/L (5-15); ASPARTATE AMINO TRANSFERASE 59 U/L (15-37); BILIRUBIN,TOTAL 0.2 MG/DL (0.2-1.0); BLOOD UREA NITROGEN 46 mg/dL (7-18); CARBON DIOXIDE 30 MMOL/L (21-32); CHLORIDE 110 MMOL/L (98-107); CREATININE 1.4 MG/DL (0.55-1.30); PHOSPHORUS 2.9 MG/DL (2.5-4.9); POTASSIUM 4.2 MMOL/L (3.5-5.1); SODIUM 145 MMOL/L (136-145)
--- NOTE | 2020-05-03 07:20 | NUR ---
NURSE HAND-OFF REPORT: Important Events on Shift:[] Patient Status: [Stable] Diet: [Tube Feeding Jevity 1.2@20mL/hr] Pending Orders: [] Pending Results/Labs:[05/03 AM Labs] Pending MD notification:[] Latest Vital Signs: Temperature 98.2 , Pulse 81 , B/P 114 /82 , Respiratory Rate 19 , O2 SAT 95 , Room Air. Vital Sign Comment: [Pt on Room Air] EKG Rhythm: Sinus Rhythm Rhythm change?: N MD Notified?: - MD Response: Latest Bergman Fall Score: 55 Fall Risk: High Risk Safety Measures: Call light Within Reach, Bed Alarm Zone 2, Side Rails Side Rails x3, Bed position Low and Locked. Fall Precautions: Yellow Socks Yellow Gown Report given to [Anastasiia RN].
--- NOTE | 2020-05-03 07:51 | NUR ---
NURSE NOTES: Received patient in bed asleep. No SOB or acute distress. IV line intact. Wound dressings intact. Gtube intact, feeding ongoing. FC intact, draining yellow colored urine. HOB elevated. Bed locked in lowest position. Call light within reach. Will continue plan of care.
[2020-05-03 08:00] VITALS: BP 120/80
[2020-05-03] MEDS: Aspirin Baby 81mg GT SCH (08:54)
[2020-05-03] MEDS: Docusate 100mg/10ml Liq GT SCH ×3 (08:55→18:10)
[2020-05-03] MEDS: levETIRAcetam 500mg/5ml Liquid GT SCH ×2 (08:55→20:20)
--- NOTE | 2020-05-03 10:46 | Infectious Diseases Prog Note ---
Assessment/Plan Assessment/Plan IMPRESSION: 1. Sepsis with fever, and tachycardia. 2. COVID-19 disease, mild 3. Pressure ulcers. 4. Status post CVA with aphasia. 5. G-tube status. 6. COPD. 7. Hypertension. 8. Seizure disorder. 9. Anemia. 10. Acute renal failure. 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 RECOMMENDATION: Continue with ceftriaxone Subjective ROS Limited/Unobtainable: Yes Constitutional: Denies: fever Allergies: Coded Allergies: No Known Allergies (Unverified , 05/01/20) Objective Last 24 Hour Vital Signs Date Time Temp Pulse Resp B/P (MAP) Pulse Ox O2 Delivery O2 Flow Rate FiO2 05/03/20 09:00 Room Air 05/03/20 08:00 98.0 85 20 120/80 (93) 96 05/03/20 08:00 86 05/03/20 04:00 98.2 81 19 114/82 (93) 95 05/03/20 04:00 79 05/03/20 00:00 80 05/03/20 00:00 97.9 93 20 128/81 (97) 94 05/02/20 21:43 97.7 05/02/20 21:00 Nasal Cannula 2.0 05/02/20 20:00 99.7 92 20 122/85 (97) 95 05/02/20 20:00 86 05/02/20 16:00 89 05/02/20 16:00 97.7 71 18 127/82 (97) 100 05/02/20 12:00 98.2 81 20 107/70 (82) 96 05/02/20 12:00 Nasal Cannula 2.0 05/02/20 12:00 84 Height (Feet): 5 Height (Inches): 11.00 Weight (Pounds): 198 General Appearance: no acute distress HEENT: mucous membranes moist Respiratory/Chest: no respiratory distress, other - on room air oxygen Cardiovascular: normal rate Abdomen: soft, non tender, other - GT feeding Extremities: no edema, other - contracted Skin: ulcers Neurologic/Psychiatric: aphasia, other - constant lip movements Microbiology Date/Time Source Procedure Growth Status 05/01/20 22:42 Blood Blood Culture - Preliminary NO GROWTH AFTER 24 HOURS Resulted 05/01/20 22:37 Blood Blood Culture - Preliminary NO GROWTH AFTER 24 HOURS Resulted 05/02/20 11:57 Nasopharynx SARS-CoV-2 RdRp Gene Assay - Final Complete 05/01/20 23:25 Rectum VRE Culture - Final Enterococcus Faecalis - Vre Complete Laboratory Tests Test 05/03/20 05:59 05/03/20 10:10 White Blood Count 4.7 K/UL (4.8-10.8) L Red Blood Count 3.66 M/UL (4.70-6.10) L Hemoglobin 10.3 G/DL (14.2-18.0) L Hematocrit 32.2 % (42.0-52.0) L Mean Corpuscular Volume 88 FL (80-99) Mean Corpuscular Hemoglobin 28.0 PG (27.0-31.0) Mean Corpuscular Hemoglobin Concent 31.9 G/DL (32.0-36.0) L Red Cell Distribution Width 14.0 % (11.6-14.8) Platelet Count 177 K/UL (150-450) Mean Platelet Volume 10.0 FL (6.5-10.1) Neutrophils (%) (Auto) 68.4 % (45.0-75.0) Lymphocytes (%) (Auto) 21.0 % (20.0-45.0) Monocytes (%) (Auto) 10.2 % (1.0-10.0) H Eosinophils (%) (Auto) 0.0 % (0.0-3.0) Basophils (%) (Auto) 0.4 % (0.0-2.0) Sodium Level 145 MMOL/L (136-145) Potassium Level 4.2 MMOL/L (3.5-5.1) Chloride Level 110 MMOL/L (98-107) H Carbon Dioxide Level 30 MMOL/L (21-32) Anion Gap 5 mmol/L (5-15) Blood Urea Nitrogen 46 mg/dL (7-18) H Creatinine 1.4 MG/DL (0.55-1.30) H Estimat Glomerular Filtration Rate 51.4 mL/min (>60) Glucose Level 155 MG/DL (74-106) H Calcium Level 9.0 MG/DL (8.5-10.1) Phosphorus Level 2.9 MG/DL (2.5-4.9) Magnesium Level 2.4 MG/DL (1.8-2.4) Total Bilirubin 0.2 MG/DL (0.2-1.0) Aspartate Amino Transf (AST/SGOT) 59 U/L (15-37) H Alanine Aminotransferase (ALT/SGPT) 78 U/L (12-78) Alkaline Phosphatase 84 U/L (46-116) Total Protein 8.8 G/DL (6.4-8.2) H Albumin 2.8 G/DL (3.4-5.0) L Globulin 6.0 g/dL Albumin/Globulin Ratio 0.5 (1.0-2.7) L Fibrinogen Pending Current Medications Medications (Trade) Dose Ordered Sig/Negro Route PRN Reason Start Time Stop Time Status Last Admin Dose Admin Acetaminophen (Tylenol) 650 mg Q6H PRN GT Temp >100.5 05/02/20 11:00 06/01/20 01:29 05/02/20 20:50 Aspirin (ASA) 81 mg DAILY GT 05/03/20 09:00 06/17/20 08:59 05/03/20 08:54 Ceftriaxone Sodium 1 gm/ Dextrose 55 ml @ 110 mls/hr Q24H IVPB 05/02/20 15:00 05/09/20 14:59 05/02/20 15:16 Docusate Sodium (Colace) 100 mg THREE TIMES A DAY GT 05/02/20 13:00 06/01/20 12:59 05/03/20 08:55 Famotidine (Pepcid) 20 mg BID GT 05/02/20 18:00 07/31/20 17:59 05/03/20 08:55 Hydralazine HCl (Apresoline) 25 mg Q4H PRN GT BP over 160 systolic 05/02/20 10:45 07/31/20 10:44 Levetiracetam (Keppra) 500 mg Q12HR GT 05/02/20 11:00 06/16/20 10:59 05/03/20 08:55 Tramadol HCl (Ultram) 50 mg Q6H PRN GT For Pain 05/02/20 10:45 05/09/20 10:44 Otoniel Narayan MD May 03, 2020 10:46
--- NOTE | 2020-05-03 10:59 | Pulmonology Progress Note ---
Subjective ROS Limited/Unobtainable: Yes Interval Events: None new Constitutional: Reports: no symptoms; Denies: fever HEENT: Repors: no symptoms Respiratory: Reports: dry cough, shortness of breath Cardiovascular: Reports: no symptoms Allergies: Coded Allergies: No Known Allergies (Unverified , 05/01/20) Objective Last 24 Hour Vital Signs Date Time Temp Pulse Resp B/P (MAP) Pulse Ox O2 Delivery O2 Flow Rate FiO2 05/03/20 09:00 Room Air 05/03/20 08:00 98.0 85 20 120/80 (93) 96 05/03/20 08:00 86 05/03/20 04:00 98.2 81 19 114/82 (93) 95 05/03/20 04:00 79 05/03/20 00:00 80 05/03/20 00:00 97.9 93 20 128/81 (97) 94 05/02/20 21:43 97.7 05/02/20 21:00 Nasal Cannula 2.0 05/02/20 20:00 99.7 92 20 122/85 (97) 95 05/02/20 20:00 86 05/02/20 16:00 89 05/02/20 16:00 97.7 71 18 127/82 (97) 100 05/02/20 12:00 98.2 81 20 107/70 (82) 96 05/02/20 12:00 Nasal Cannula 2.0 05/02/20 12:00 84 Intake and Output 05/02/20 05/03/20 19:00 07:00 Output Total 500 ml 400 ml Balance -500 ml -400 ml Output Urine Total 500 ml 400 ml General Appearance: no acute distress HEENT: normocephalic Respiratory: chest wall non-tender, lungs clear Cardiovascular: normal peripheral pulses, normal rate Abdomen: normal bowel sounds Microbiology Date/Time Source Procedure Growth Status 05/01/20 22:42 Blood Blood Culture - Preliminary NO GROWTH AFTER 24 HOURS Resulted 05/01/20 22:37 Blood Blood Culture - Preliminary NO GROWTH AFTER 24 HOURS Resulted 05/02/20 11:57 Nasopharynx SARS-CoV-2 RdRp Gene Assay - Final Complete 05/01/20 23:25 Rectum VRE Culture - Final Enterococcus Faecalis - Vre Complete Laboratory Tests 05/03/20 05:59: White Blood Count 4.7L, Red Blood Count 3.66L, Hemoglobin 10.3L, Hematocrit 32.2L, Mean Corpuscular Volume 88, Mean Corpuscular Hemoglobin 28.0, Mean Corpuscular Hemoglobin Concent 31.9L, Red Cell Distribution Width 14.0, Platelet Count 177, Mean Platelet Volume 10.0, Neutrophils (%) (Auto) 68.4, Lymphocytes (%) (Auto) 21.0, Monocytes (%) (Auto) 10.2H, Eosinophils (%) (Auto) 0.0, Basophils (%) (Auto) 0.4, Sodium Level 145, Potassium Level 4.2, Chloride Level 110H, Carbon Dioxide Level 30, Anion Gap 5, Blood Urea Nitrogen 46H, Creatinine 1.4H, Estimat Glomerular Filtration Rate 51.4, Glucose Level 155H, Calcium Level 9.0, Phosphorus Level 2.9, Magnesium Level 2.4, Total Bilirubin 0.2, Aspartate Amino Transf (AST/SGOT) 59H, Alanine Aminotransferase (ALT/SGPT) 78, Alkaline Phosphatase 84, Total Protein 8.8H, Albumin 2.8L, Globulin 6.0, Albumin/Globulin Ratio 0.5L 05/03/20 10:10: Fibrinogen [Pending] Current Medications Medications (Trade) Dose Ordered Sig/Negro Route PRN Reason Start Time Stop Time Status Last Admin Dose Admin Acetaminophen (Tylenol) 650 mg Q6H PRN GT Temp >100.5 05/02/20 11:00 06/01/20 01:29 05/02/20 20:50 Allopurinol (Zyloprim) 100 mg DAILY GT 05/03/20 11:00 06/02/20 10:59 Aspirin (ASA) 81 mg DAILY GT 05/03/20 09:00 06/17/20 08:59 05/03/20 08:54 Ceftriaxone Sodium 1 gm/ Dextrose 55 ml @ 110 mls/hr Q24H IVPB 05/02/20 15:00 05/09/20 14:59 05/02/20 15:16 Docusate Sodium (Colace) 100 mg THREE TIMES A DAY GT 05/02/20 13:00 06/01/20 12:59 05/03/20 08:55 Famotidine (Pepcid) 20 mg BID GT 05/02/20 18:00 07/31/20 17:59 05/03/20 08:55 Hydralazine HCl (Apresoline) 25 mg Q4H PRN GT BP over 160 systolic 05/02/20 10:45 07/31/20 10:44 Levetiracetam (Keppra) 500 mg Q12HR GT 05/02/20 11:00 06/16/20 10:59 05/03/20 08:55 Tramadol HCl (Ultram) 50 mg Q6H PRN GT For Pain 05/02/20 10:45 05/09/20 10:44 Assessment/Plan Assessment/Plan IMPRESSION: 1. COVID-19 pneumonia. 2. Normoxemia. 3. Metabolic encephalopathy. 4. Seizure disorder. DISCUSSION: I have reviewed his x-ray and there are bilateral infiltrates. He has COVID-19 pneumonia. He has received steroids and Lovenox. He is having lip-smacking movements, which maybe seizure disorder. 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 Will order pulmonary hygiene. Yoseph Khoury M.D. Yoseph Khoury MD May 03, 2020 10:59
[2020-05-03] MEDS: Allopurinol 100mg Tab GT SCH (11:01)
[2020-05-03 12:00] VITALS: BP 115/75
--- NOTE | 2020-05-03 13:16 | Nephrology Progress Note ---
Assessment/Plan Problem List: (1) SHERRIE (acute kidney injury) (2) Pneumonia due to COVID-19 virus (3) Sepsis (4) Acute metabolic encephalopathy (5) Seizure (6) Anemia Assessment Acute renal failure. Patient presents with serum creatinine of 1.6. Underlying chronic renal insufficiency. Serum creatinine 1.4 after hydration. Pneumonia due to COVID-19 virus Acute metabolic encephalopathy Seizures Sepsis Nonverbal, with GT feeding Anemia Plan Per ID Monitor renal parameters Albumin bolus Per orders Subjective ROS Limited/Unobtainable: Yes Objective Objective Last 24 Hour Vital Signs Date Time Temp Pulse Resp B/P (MAP) Pulse Ox O2 Delivery O2 Flow Rate FiO2 05/03/20 09:00 Room Air 05/03/20 08:00 98.0 85 20 120/80 (93) 96 05/03/20 08:00 86 05/03/20 04:00 98.2 81 19 114/82 (93) 95 05/03/20 04:00 79 05/03/20 00:00 80 05/03/20 00:00 97.9 93 20 128/81 (97) 94 05/02/20 21:43 97.7 05/02/20 21:00 Nasal Cannula 2.0 05/02/20 20:00 99.7 92 20 122/85 (97) 95 05/02/20 20:00 86 05/02/20 16:00 89 05/02/20 16:00 97.7 71 18 127/82 (97) 100 Intake and Output 05/02/20 05/03/20 19:00 07:00 Output Total 500 ml 400 ml Balance -500 ml -400 ml Output Urine Total 500 ml 400 ml Current Medications Medications (Trade) Dose Ordered Sig/Negro Route PRN Reason Start Time Stop Time Status Last Admin Dose Admin Acetaminophen (Tylenol) 650 mg Q6H PRN GT Temp >100.5 05/02/20 11:00 06/01/20 01:29 05/02/20 20:50 Allopurinol (Zyloprim) 100 mg DAILY GT 05/03/20 11:00 06/02/20 10:59 05/03/20 11:01 Aspirin (ASA) 81 mg DAILY GT 05/03/20 09:00 06/17/20 08:59 05/03/20 08:54 Ceftriaxone Sodium 1 gm/ Dextrose 55 ml @ 110 mls/hr Q24H IVPB 05/02/20 15:00 05/09/20 14:59 05/02/20 15:16 Docusate Sodium (Colace) 100 mg THREE TIMES A DAY GT 05/02/20 13:00 06/01/20 12:59 05/03/20 08:55 Famotidine (Pepcid) 20 mg BID GT 05/02/20 18:00 07/31/20 17:59 05/03/20 08:55 Hydralazine HCl (Apresoline) 25 mg Q4H PRN GT BP over 160 systolic 05/02/20 10:45 07/31/20 10:44 Levetiracetam (Keppra) 500 mg Q12HR GT 05/02/20 11:00 06/16/20 10:59 05/03/20 08:55 Tramadol HCl (Ultram) 50 mg Q6H PRN GT For Pain 05/02/20 10:45 05/09/20 10:44 Laboratory Tests 05/03/20 05:59: White Blood Count 4.7L, Red Blood Count 3.66L, Hemoglobin 10.3L, Hematocrit 32.2L, Mean Corpuscular Volume 88, Mean Corpuscular Hemoglobin 28.0, Mean Corpuscular Hemoglobin Concent 31.9L, Red Cell Distribution Width 14.0, Platelet Count 177, Mean Platelet Volume 10.0, Neutrophils (%) (Auto) 68.4, Lymphocytes (%) (Auto) 21.0, Monocytes (%) (Auto) 10.2H, Eosinophils (%) (Auto) 0.0, Basophils (%) (Auto) 0.4, Sodium Level 145, Potassium Level 4.2, Chloride Level 110H, Carbon Dioxide Level 30, Anion Gap 5, Blood Urea Nitrogen 46H, Creatinine 1.4H, Estimat Glomerular Filtration Rate 51.4, Glucose Level 155H, Calcium Level 9.0, Phosphorus Level 2.9, Magnesium Level 2.4, Total Bilirubin 0.2, Aspartate Amino Transf (AST/SGOT) 59H, Alanine Aminotransferase (ALT/SGPT) 78, Alkaline Phosphatase 84, Total Protein 8.8H, Albumin 2.8L, Globulin 6.0, Albumin/Globulin Ratio 0.5L 05/03/20 10:10: Fibrinogen 403H Height (Feet): 5 Height (Inches): 11.00 Weight (Pounds): 198 General Appearance: no apparent distress Cardiovascular: normal rate Respiratory/Chest: decreased breath sounds Abdomen: distended Objective No change Adal Kenney MD May 03, 2020 13:16
[2020-05-03] MEDS: cefTRIAXone 1 GM in D5W 55 ML IVPB SCH (14:24)
[2020-05-03 15:53] VITALS: BP 110/75
--- NOTE | 2020-05-03 18:11 | Cardiology Progress Note ---
Assessment/Plan Assessment/Plan 1. Sinus tachycardia, continue hydration. 2. Dyspnea, most likely COVID-19 pneumonitis. Awaiting brain-natriuretic peptide. 3. SHERRIE, creat at 1.4. Subjective Subjective Sinus tachycardia at rate of 108. Objective Last 24 Hour Vital Signs Date Time Temp Pulse Resp B/P (MAP) Pulse Ox O2 Delivery O2 Flow Rate FiO2 05/03/20 15:53 98.2 108 20 110/75 (87) 96 05/03/20 12:00 90 05/03/20 12:00 98.6 86 18 115/75 (88) 95 05/03/20 09:00 Room Air 05/03/20 08:00 98.0 85 20 120/80 (93) 96 05/03/20 08:00 86 05/03/20 04:00 98.2 81 19 114/82 (93) 95 05/03/20 04:00 79 05/03/20 00:00 80 05/03/20 00:00 97.9 93 20 128/81 (97) 94 05/02/20 21:43 97.7 05/02/20 21:00 Nasal Cannula 2.0 05/02/20 20:00 99.7 92 20 122/85 (97) 95 05/02/20 20:00 86 Intake and Output 05/02/20 05/03/20 19:00 07:00 Output Total 500 ml 400 ml Balance -500 ml -400 ml Output Urine Total 500 ml 400 ml Laboratory Tests Test 05/03/20 05:59 05/03/20 10:10 White Blood Count 4.7 K/UL (4.8-10.8) L Red Blood Count 3.66 M/UL (4.70-6.10) L Hemoglobin 10.3 G/DL (14.2-18.0) L Hematocrit 32.2 % (42.0-52.0) L Mean Corpuscular Volume 88 FL (80-99) Mean Corpuscular Hemoglobin 28.0 PG (27.0-31.0) Mean Corpuscular Hemoglobin Concent 31.9 G/DL (32.0-36.0) L Red Cell Distribution Width 14.0 % (11.6-14.8) Platelet Count 177 K/UL (150-450) Mean Platelet Volume 10.0 FL (6.5-10.1) Neutrophils (%) (Auto) 68.4 % (45.0-75.0) Lymphocytes (%) (Auto) 21.0 % (20.0-45.0) Monocytes (%) (Auto) 10.2 % (1.0-10.0) H Eosinophils (%) (Auto) 0.0 % (0.0-3.0) Basophils (%) (Auto) 0.4 % (0.0-2.0) Sodium Level 145 MMOL/L (136-145) Potassium Level 4.2 MMOL/L (3.5-5.1) Chloride Level 110 MMOL/L (98-107) H Carbon Dioxide Level 30 MMOL/L (21-32) Anion Gap 5 mmol/L (5-15) Blood Urea Nitrogen 46 mg/dL (7-18) H Creatinine 1.4 MG/DL (0.55-1.30) H Estimat Glomerular Filtration Rate 51.4 mL/min (>60) Glucose Level 155 MG/DL (74-106) H Calcium Level 9.0 MG/DL (8.5-10.1) Phosphorus Level 2.9 MG/DL (2.5-4.9) Magnesium Level 2.4 MG/DL (1.8-2.4) Total Bilirubin 0.2 MG/DL (0.2-1.0) Aspartate Amino Transf (AST/SGOT) 59 U/L (15-37) H Alanine Aminotransferase (ALT/SGPT) 78 U/L (12-78) Alkaline Phosphatase 84 U/L (46-116) Total Protein 8.8 G/DL (6.4-8.2) H Albumin 2.8 G/DL (3.4-5.0) L Globulin 6.0 g/dL Albumin/Globulin Ratio 0.5 (1.0-2.7) L Fibrinogen 403 mg/dL (200-400) H Microbiology Date/Time Source Procedure Growth Status 05/01/20 22:42 Blood Blood Culture - Preliminary NO GROWTH AFTER 24 HOURS Resulted 05/01/20 22:37 Blood Blood Culture - Preliminary NO GROWTH AFTER 24 HOURS Resulted 05/02/20 11:57 Nasopharynx SARS-CoV-2 RdRp Gene Assay - Final Complete 05/01/20 23:25 Rectum VRE Culture - Final Enterococcus Faecalis - Vre Complete Objective HEENT: Atraumatic and normocephalic. Anicteric. Pupils are equal, round, and reactive to light and accommodation. Extraocular muscles intact. The patient has a dysconjugate gaze. Positive dry mucosal membranes. Left ear with mild edema and dry blood. No active bleeding. NECK: JVP less than 5 cm. CARDIOVASCULAR: Normal S1, S2. Regular rhythm, tachycardic. No murmurs, gallops, or rubs. LUNGS: Clear to auscultation bilaterally. ABDOMEN: Soft, nontender, and nondistended. No hepatosplenomegaly. Presence of a G-tube. EXTREMITIES: Grimace to painful stimuli. Contracted limbs. Rhythmic movement of his mouth was appreciated. No edema, clubbing, or cyanosis. Timothy Vizcaino MD May 03, 2020 18:11
[2020-05-03] MEDS ORDERED: KEPPRA100 MG/1 M IV (19:00)
[2020-05-03] MEDS ORDERED: METOCLOPRAM5 MG/5 M2 GT (19:00)
[2020-05-03] MEDS ORDERED: ASCORBIC A500 MG/1 M GT (19:00)
[2020-05-03] MEDS ORDERED: FERROUS SU300 MG/52 GT (19:00)
[2020-05-03] MEDS ORDERED: KLONOPIN0.5 MG GT (19:00)
--- NOTE | 2020-05-03 19:32 | NUR ---
NURSE HAND-OFF REPORT: Important Events on Shift:for transfer to [facility] / [facility] once room is available Patient Status: stable Diet: Gtube Jevity 1.2 at 20ml/hr Pending Orders: Pending Results/Labs: Pending MD notification: Latest Vital Signs: Temperature 98.2 , Pulse 104 , B/P 110 /75 , Respiratory Rate 20 , O2 SAT 96 , Room Air, O2 Flow Rate 2.0 . Vital Sign Comment: EKG Rhythm: Sinus Tachycardia Rhythm change?: Y Notified?: -Y Response: awaiting Latest Bergman Fall Score: 55 Fall Risk: High Risk Safety Measures: Call light Within Reach, Bed Alarm Zone 2, Side Rails Side Rails x3, Bed position Low and Locked. Fall Precautions: Yellow Socks Yellow Gown Report given to Alli TAVARES
--- NOTE | 2020-05-03 19:33 | NUR ---
NURSE NOTES: Report received from Anastasiianette TAVARES. Patient is noted to be alert and oriented x 0 and non verbal. Was endorsed that this is baseline mental status for the patient. Patient is noted to be on room air with an oxygen saturation of 92 %. Patient is noted to have a heart rate of 110 BPM but sinus rhythm. Patient is noted to be on contact and droplet precautions due to testing positive for covid 19 on May 02, 2020. Patient is noted to have a left AC 22 shilpa IV access. Patient is noted to have G tube in place in patent. G tube currently has Jevity 1.2 running at 20 cc / hr. Was endorsed to John TAVARES that this is currently the goal rate and that nutrition is to come and asses the patient. Patient is noted to have indwelling Gonzales catheter draining clear yellow urine. An order to downgrade the patient to medical surgical unit is noted. Was endorsed to John TAVARES that there is no open room at the time for the patient. John TAVARES will follow up with Charge Nurse Khloe regarding this transfer. Bed is locked, alarmed, and in lowest position. Will continue to follow plan of care.
[2020-05-03 20:00] VITALS: BP 141/84
--- NOTE | 2020-05-03 20:03 | NUR ---
NURSE NOTES: Endorsed to John TAVARES form [employer] that patient's hear rate reached 140 BPM. John TAVARES made charge nurse Khloe aware and informed Khloe RN that patient was coughing at the time of the episode. Telemetry nurse Danika whom is overseeing telemetry nursing care for John TAVARES was made aware. Cardiac rhythm strip was printed, shown to charge nurse Khloe and given to Danika TAVARES. Danika TAVARES informed John TAVARES that she would contact MD if needed.
--- NOTE | 2020-05-03 20:26 | NUR ---
NURSE NOTES: During medication administration patient noted to have an oxygen saturation of 89%. Oxygen appeared to go from 89 % to 91 % on room air. John TAVARES called Brain RT for a nasal canula. Tej RT will come to assess the patient and apply oxygen.
--- NOTE | 2020-05-03 20:50 | NUR ---
NURSE NOTES: RT assessed patient and recommended patient be placed on oxygen nasal canula. John TAVARES called Doctor Iraida for order. No answer. Charge Nurse Khloe aware. Will await call back.
--- NOTE | 2020-05-03 20:57 | General Progress Note ---
Assessment/Plan Problem List: (1) Seizure ICD Codes: R56.9 - Unspecified convulsions; J12.89 - Other viral pneumonia SNOMED: 29411747, 661755138 (2) Sepsis ICD Codes: A41.9 - Sepsis, unspecified organism SNOMED: 93549118, 191644541 Qualifiers: Qualified Codes: A41.9 - Sepsis, unspecified organism (3) SHERRIE (acute kidney injury) ICD Codes: N17.9 - Acute kidney failure, unspecified SNOMED: 46314327, 9106803 (4) Pneumonia due to COVID-19 virus ICD Codes: U07.1 - COVID-19; J12.89 - Other viral pneumonia SNOMED: 012569838, 945445242 (5) Anemia ICD Codes: D64.9 - Anemia, unspecified SNOMED: 529593093 (6) Acute metabolic encephalopathy ICD Codes: G93.41 - Metabolic encephalopathy; J12.89 - Other viral pneumonia SNOMED: 86664865, 357738868 Status: progressing Assessment/Plan: afebrile nac pna anemia covid positive pna azotemia malnutrition dehydration Subjective ROS Limited/Unobtainable: Yes Allergies: Coded Allergies: No Known Allergies (Unverified , 05/01/20) Objective Last 24 Hour Vital Signs Date Time Temp Pulse Resp B/P (MAP) Pulse Ox O2 Delivery O2 Flow Rate FiO2 05/03/20 16:00 104 05/03/20 15:53 98.2 108 20 110/75 (87) 96 05/03/20 12:00 90 05/03/20 12:00 98.6 86 18 115/75 (88) 95 05/03/20 09:00 Room Air 05/03/20 08:00 98.0 85 20 120/80 (93) 96 05/03/20 08:00 86 05/03/20 04:00 98.2 81 19 114/82 (93) 95 05/03/20 04:00 79 05/03/20 00:00 80 05/03/20 00:00 97.9 93 20 128/81 (97) 94 05/02/20 21:43 97.7 05/02/20 21:00 Nasal Cannula 2.0 Intake and Output 05/02/20 05/03/20 19:00 07:00 Output Total 500 ml 400 ml Balance -500 ml -400 ml Output Urine Total 500 ml 400 ml Laboratory Tests 05/03/20 05:59: White Blood Count 4.7L, Red Blood Count 3.66L, Hemoglobin 10.3L, Hematocrit 32.2L, Mean Corpuscular Volume 88, Mean Corpuscular Hemoglobin 28.0, Mean Corpuscular Hemoglobin Concent 31.9L, Red Cell Distribution Width 14.0, Platelet Count 177, Mean Platelet Volume 10.0, Neutrophils (%) (Auto) 68.4, Lymphocytes (%) (Auto) 21.0, Monocytes (%) (Auto) 10.2H, Eosinophils (%) (Auto) 0.0, Basophils (%) (Auto) 0.4, Sodium Level 145, Potassium Level 4.2, Chloride Level 110H, Carbon Dioxide Level 30, Anion Gap 5, Blood Urea Nitrogen 46H, Creatinine 1.4H, Estimat Glomerular Filtration Rate 51.4, Glucose Level 155H, Calcium Level 9.0, Phosphorus Level 2.9, Magnesium Level 2.4, Total Bilirubin 0.2, Aspartate Amino Transf (AST/SGOT) 59H, Alanine Aminotransferase (ALT/SGPT) 78, Alkaline Phosphatase 84, Total Protein 8.8H, Albumin 2.8L, Globulin 6.0, Albumin/Globulin Ratio 0.5L 05/03/20 10:10: Fibrinogen 403H Height (Feet): 5 Height (Inches): 11.00 Weight (Pounds): 198 Juan J Navarro MD May 03, 2020 20:57
--- NOTE | 2020-05-03 23:18 | NUR ---
NURSE NOTES: Patient noted to have consistent sinus tachycardia with a heart rate of [address] Carrillo made aware, no new orders. Danika Telemetry nurse made aware. [facility] Charge Nurse made aware. Upon further assessment with [facility] RN patient is found to have a temperature of 104.2 axillary. Patient was afebrile at beginning of shift. Patient noted to have be admitted on May 02, 2020 and had negative blood cultures. PRN Tylenol administered, ice packs put in place for cooling. Will continue to monitor patient.
[2020-05-03] MEDS: Acetaminophen 650mg/20.3ml GT PRN (23:21)
[2020-05-04 00:05] VITALS: BP 134/79
--- NOTE | 2020-05-04 00:14 | NUR ---
NURSE NOTES: Upon reassessment of the patient the patient was found to have a temperature of 104.8. Tylenol previously administered. New ice packs put in place to help cool patient. Khloe radiological defense officer made aware. Doctor Nasra Narayan made aware, chest xray and blood cultures ordered. Will continue to monitor patient's temperature.
[2020-05-04 04:00] VITALS: BP 144/80
[2020-05-04] MEDS: Acetaminophen 650mg/20.3ml GT PRN ×3 (05:17→15:04)
--- NOTE | 2020-05-04 07:37 | NUR ---
NURSE HAND-OFF REPORT: Important Events on Shift:Patient was placed on oxygen due to low oxygen saturation, patient had sinus tachycardia, patient febrile throughout shift. Patient Status: Patient is tachycardic, has good oxygen saturation, but still remains febrile. Diet: Jevity 1.2 @ 20 Pending Orders: none Pending Results/Labs: blood cultures. Pending MD notification: none Latest Vital Signs: Temperature 101.5 , Pulse 92 , B/P 144 /80 , Respiratory Rate 18 , O2 SAT 96 , Nasal Cannula, O2 Flow Rate 2.0 . Vital Sign Comment: Nasra Narayan aware of fever. EKG Rhythm: Sinus Rhythm Rhythm change?: N Notified?: Marlyn GATES MD Response: No New Orders Received Latest Bergman Fall Score: 55 Fall Risk: High Risk Safety Measures: Call light Within Reach, Bed Alarm Zone 2, Side Rails Side Rails x3, Bed position Low and Locked. Fall Precautions: Yellow Socks Yellow Gown Report given to Anastasiia TAVARES.
--- NOTE | 2020-05-04 07:45 | NUR ---
NURSE NOTES: Received patient in bed. O2 via NC in place, no SOB or acute distress. IV line intact. FC intact, draining yellow colored urine. Gtube intact, feeding ongoing. HOB elevated. Bed locked in lowest position. Call light within reach. Will continue plan of care and monitoring for fever.
[2020-05-04 08:00] VITALS: BP 138/75
[2020-05-04] MEDS: Allopurinol 100mg Tab GT SCH (09:41)
[2020-05-04] MEDS: Docusate 100mg/10ml Liq GT SCH ×3 (09:41→18:52)
[2020-05-04] MEDS: levETIRAcetam 500mg/5ml Liquid GT SCH ×2 (09:42→20:17)
[2020-05-04] MEDS: Aspirin Baby 81mg GT SCH (09:42)
--- NOTE | 2020-05-04 09:49 | Cardiology Progress Note ---
Assessment/Plan Assessment/Plan 1. Sinus tachycardia, resolving, continue hydration. 2. Dyspnea, most likely COVID-19 pneumonitis. Brain-natriuretic peptide is mildly elevated. 3. SHERRIE, creat at 1.4. Subjective Subjective Sinus rhythm at rate of 96. Objective Last 24 Hour Vital Signs Date Time Temp Pulse Resp B/P (MAP) Pulse Ox O2 Delivery O2 Flow Rate FiO2 05/04/20 08:00 96 05/04/20 08:00 98.9 86 20 138/75 (96) 96 05/04/20 06:30 101.5 92 18 96 05/04/20 05:47 101.5 05/04/20 04:00 101.7 90 19 144/80 (101) 95 05/04/20 03:29 92 05/04/20 01:55 102.2 102 20 94 05/04/20 00:50 102.6 108 20 94 05/04/20 00:05 104.8 110 20 134/79 (97) 94 05/04/20 00:00 120 05/03/20 23:15 104.2 122 20 94 05/03/20 21:00 Nasal Cannula 2.0 05/03/20 20:00 97.2 116 18 141/84 (103) 90 05/03/20 20:00 113 05/03/20 16:00 104 05/03/20 15:53 98.2 108 20 110/75 (87) 96 05/03/20 12:00 90 05/03/20 12:00 98.6 86 18 115/75 (88) 95 Intake and Output 05/03/20 05/04/20 19:00 07:00 Intake Total 20 ml 360 ml Output Total 400 ml 600 ml Balance -380 ml -240 ml Free Water 120 ml Tube Feeding 20 ml 240 ml Output Urine Total 400 ml 600 ml Laboratory Tests Test 05/03/20 10:10 05/04/20 00:30 Fibrinogen 403 mg/dL (200-400) H Pro-B-Type Natriuretic Peptide 284 pg/mL (0-125) H Microbiology Date/Time Source Procedure Growth Status 05/01/20 22:42 Blood Blood Culture - Preliminary NO GROWTH AFTER 48 HOURS Resulted 05/01/20 22:37 Blood Blood Culture - Preliminary NO GROWTH AFTER 48 HOURS Resulted 05/02/20 11:57 Nasopharynx SARS-CoV-2 RdRp Gene Assay - Final Complete 05/01/20 23:25 Nasal Nares MRSA Culture - Final Staphylococcus Aureus - Mrsa Complete 05/01/20 23:25 Rectum - Final NO CARBAPENEM-RESISTANT ENTEROBACTERI... Complete 05/01/20 23:25 Rectum VRE Culture - Final Enterococcus Faecalis - Vre Complete Objective HEENT: Atraumatic and normocephalic. Anicteric. Pupils are equal, round, and reactive to light and accommodation. Extraocular muscles intact. The patient has a dysconjugate gaze. Positive dry mucosal membranes. Left ear with mild edema and dry blood. No active bleeding. NECK: JVP less than 5 cm. CARDIOVASCULAR: Normal S1, S2. Regular rhythm, no murmurs, gallops, or rubs. LUNGS: Clear to auscultation bilaterally. ABDOMEN: Soft, nontender, and nondistended. No hepatosplenomegaly. Presence of a G-tube. EXTREMITIES: Grimace to painful stimuli. Contracted limbs. Rhythmic movement of his mouth was appreciated. No edema, clubbing, or cyanosis. Timothy Vizcaino MD May 04, 2020 09:49
--- NOTE | 2020-05-04 10:14 | Pulmonology Progress Note ---
Subjective ROS Limited/Unobtainable: Yes Interval Events: None new Constitutional: Reports: no symptoms; Denies: fever HEENT: Repors: no symptoms Respiratory: Reports: dry cough, shortness of breath Cardiovascular: Reports: no symptoms Allergies: Coded Allergies: No Known Allergies (Unverified , 05/01/20) Objective Last 24 Hour Vital Signs Date Time Temp Pulse Resp B/P (MAP) Pulse Ox O2 Delivery O2 Flow Rate FiO2 05/04/20 08:00 96 05/04/20 08:00 98.9 86 20 138/75 (96) 96 05/04/20 06:30 101.5 92 18 96 05/04/20 05:47 101.5 05/04/20 04:00 101.7 90 19 144/80 (101) 95 05/04/20 03:29 92 05/04/20 01:55 102.2 102 20 94 05/04/20 00:50 102.6 108 20 94 05/04/20 00:05 104.8 110 20 134/79 (97) 94 05/04/20 00:00 120 05/03/20 23:15 104.2 122 20 94 05/03/20 21:00 Nasal Cannula 2.0 05/03/20 20:00 97.2 116 18 141/84 (103) 90 05/03/20 20:00 113 05/03/20 16:00 104 05/03/20 15:53 98.2 108 20 110/75 (87) 96 05/03/20 12:00 90 05/03/20 12:00 98.6 86 18 115/75 (88) 95 Intake and Output 05/03/20 05/04/20 19:00 07:00 Intake Total 20 ml 360 ml Output Total 400 ml 600 ml Balance -380 ml -240 ml Free Water 120 ml Tube Feeding 20 ml 240 ml Output Urine Total 400 ml 600 ml General Appearance: no acute distress HEENT: normocephalic Respiratory: chest wall non-tender, lungs clear Cardiovascular: normal peripheral pulses, normal rate Abdomen: normal bowel sounds Microbiology Date/Time Source Procedure Growth Status 05/01/20 22:42 Blood Blood Culture - Preliminary NO GROWTH AFTER 48 HOURS Resulted 05/01/20 22:37 Blood Blood Culture - Preliminary NO GROWTH AFTER 48 HOURS Resulted 05/02/20 11:57 Nasopharynx SARS-CoV-2 RdRp Gene Assay - Final Complete 05/01/20 23:25 Nasal Nares MRSA Culture - Final Staphylococcus Aureus - Mrsa Complete 05/01/20 23:25 Rectum - Final NO CARBAPENEM-RESISTANT ENTEROBACTERI... Complete 05/01/20 23:25 Rectum VRE Culture - Final Enterococcus Faecalis - Vre Complete Laboratory Tests 05/04/20 00:30: Pro-B-Type Natriuretic Peptide 284H Current Medications Medications (Trade) Dose Ordered Sig/Negro Route PRN Reason Start Time Stop Time Status Last Admin Dose Admin Acetaminophen (Tylenol) 650 mg Q6H PRN GT Temp >100.5 05/02/20 11:00 06/01/20 01:29 05/04/20 05:17 Allopurinol (Zyloprim) 100 mg DAILY GT 05/03/20 11:00 06/02/20 10:59 05/04/20 09:41 Aspirin (ASA) 81 mg DAILY GT 05/03/20 09:00 06/17/20 08:59 05/04/20 09:42 Ceftriaxone Sodium 1 gm/ Dextrose 55 ml @ 110 mls/hr Q24H IVPB 05/02/20 15:00 05/09/20 14:59 05/03/20 14:24 Docusate Sodium (Colace) 100 mg THREE TIMES A DAY GT 05/02/20 13:00 06/01/20 12:59 05/04/20 09:41 Famotidine (Pepcid) 20 mg BID GT 05/02/20 18:00 07/31/20 17:59 05/04/20 09:41 Hydralazine HCl (Apresoline) 25 mg Q4H PRN GT BP over 160 systolic 05/02/20 10:45 07/31/20 10:44 Levetiracetam (Keppra) 500 mg Q12HR GT 05/02/20 11:00 06/16/20 10:59 05/04/20 09:42 Tramadol HCl (Ultram) 50 mg Q6H PRN GT For Pain 05/02/20 10:45 05/09/20 10:44 Assessment/Plan Assessment/Plan IMPRESSION: 1. COVID-19 pneumonia. 2. Normoxemia. 3. Metabolic encephalopathy. 4. Seizure disorder. DISCUSSION: I have reviewed his x-ray and there are bilateral infiltrates. He has COVID-19 pneumonia. He has received steroids and Lovenox. He is having lip-smacking movements, which maybe seizure disorder. 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 Will order pulmonary hygiene. Yoseph Khoury M.D. Yoseph Khoury MD May 04, 2020 10:14
--- NOTE | 2020-05-04 11:34 | Nephrology Progress Note ---
Assessment/Plan Problem List: (1) SHERRIE (acute kidney injury) (2) Pneumonia due to COVID-19 virus (3) Sepsis (4) Acute metabolic encephalopathy (5) Seizure (6) Anemia Assessment Acute renal failure. Patient presents with serum creatinine of 1.6. Underlying chronic renal insufficiency. Serum creatinine 1.4 after hydration. Pneumonia due to COVID-19 virus Acute metabolic encephalopathy Seizures Sepsis Nonverbal, with GT feeding Anemia Plan No labs drawn today. Will check renal parameters tomorrow. Stable from renal standpoint of view. Per ID Monitor renal parameters Albumin bolus Per orders Subjective ROS Limited/Unobtainable: Yes Objective Objective Last 24 Hour Vital Signs Date Time Temp Pulse Resp B/P (MAP) Pulse Ox O2 Delivery O2 Flow Rate FiO2 05/04/20 09:00 Nasal Cannula 2.0 05/04/20 08:00 96 05/04/20 08:00 98.9 86 20 138/75 (96) 96 05/04/20 06:30 101.5 92 18 96 05/04/20 05:47 101.5 05/04/20 04:00 101.7 90 19 144/80 (101) 95 05/04/20 03:29 92 05/04/20 01:55 102.2 102 20 94 05/04/20 00:50 102.6 108 20 94 05/04/20 00:05 104.8 110 20 134/79 (97) 94 05/04/20 00:00 120 05/03/20 23:15 104.2 122 20 94 05/03/20 21:00 Nasal Cannula 2.0 05/03/20 20:00 97.2 116 18 141/84 (103) 90 05/03/20 20:00 113 05/03/20 16:00 104 05/03/20 15:53 98.2 108 20 110/75 (87) 96 05/03/20 12:00 90 05/03/20 12:00 98.6 86 18 115/75 (88) 95 Intake and Output 05/03/20 05/04/20 19:00 07:00 Intake Total 20 ml 360 ml Output Total 400 ml 600 ml Balance -380 ml -240 ml Free Water 120 ml Tube Feeding 20 ml 240 ml Output Urine Total 400 ml 600 ml Current Medications Medications (Trade) Dose Ordered Sig/Negro Route PRN Reason Start Time Stop Time Status Last Admin Dose Admin Acetaminophen (Tylenol) 650 mg Q6H PRN GT Temp >100.5 05/02/20 11:00 06/01/20 01:29 05/04/20 05:17 Allopurinol (Zyloprim) 100 mg DAILY GT 05/03/20 11:00 06/02/20 10:59 05/04/20 09:41 Aspirin (ASA) 81 mg DAILY GT 05/03/20 09:00 06/17/20 08:59 05/04/20 09:42 Ceftriaxone Sodium 1 gm/ Dextrose 55 ml @ 110 mls/hr Q24H IVPB 05/02/20 15:00 05/09/20 14:59 05/03/20 14:24 Docusate Sodium (Colace) 100 mg THREE TIMES A DAY GT 05/02/20 13:00 06/01/20 12:59 05/04/20 09:41 Famotidine (Pepcid) 20 mg BID GT 05/02/20 18:00 07/31/20 17:59 05/04/20 09:41 Hydralazine HCl (Apresoline) 25 mg Q4H PRN GT BP over 160 systolic 05/02/20 10:45 07/31/20 10:44 Levetiracetam (Keppra) 500 mg Q12HR GT 05/02/20 11:00 06/16/20 10:59 05/04/20 09:42 Tramadol HCl (Ultram) 50 mg Q6H PRN GT For Pain 05/02/20 10:45 05/09/20 10:44 Laboratory Tests 05/04/20 00:30: Pro-B-Type Natriuretic Peptide 284H Height (Feet): 5 Height (Inches): 11.00 Weight (Pounds): 198 General Appearance: no apparent distress Cardiovascular: normal rate Respiratory/Chest: decreased breath sounds Abdomen: soft Objective No change Adal Kenney MD May 04, 2020 11:33
--- NOTE | 2020-05-04 11:41 | NUR ---
CASE MANAGEMENT:REVIEW 05/04/20 SI: COVID PNA. SEPSIS 101.5 86 20 138/75 96% ON 2L/NC IS: IV ROCEPHIN Q24 ALLOPURINOL GT QD ASA GT QD PEPCID GT BID KEPPRA GT Q12 : TELEMETRY STATUS DCP: FROM [facility]: BLOOD CULTURE ORDERED
--- NOTE | 2020-05-04 11:50 | NUR ---
DISCHARGE PLANNING CALLED [facility] AND SPOKE WITH [facility]ORY THE [facility] [facility] PER CORY PATIENT HAS BEEN A RESIDENT AT THEIR FACILITY FOR MORE THAN 5 YEARS AND THEY WILL TAKE HIM BACK COVID POSITIVE OR NEGATIVE
[2020-05-04 12:00] VITALS: BP 115/60
[2020-05-04] MEDS: cefTRIAXone 1 GM in D5W 55 ML IVPB SCH (14:00)
--- NOTE | 2020-05-04 14:44 | Diagnostic Imaging Report ---
Indication: Shortness of breath Technique: XRAY Chest 1v Comparison: 05/01/2020 Findings: Low lung lines. There is elevation of the right hemidiaphragm. There is pulmonary vascular congestion and hazy perihilar airspace opacities which are slightly increased compared to the prior exam. No dense consolidation. No pleural effusion or pneumothorax. Heart is borderline enlarged but stable in size compared to the prior exam. There are cholecystectomy clips in the right upper quadrant. Impression: Low lung volumes and elevation of the right hemidiaphragm. Pulmonary vascular congestion/interstitial prominence and hazy perihilar opacities. Findings may be related to CHF/fluid overload. Superimposed pneumonia not excluded. Follow-up recommended
--- NOTE | 2020-05-04 15:23 | Infectious Diseases Prog Note ---
Assessment/Plan Assessment/Plan IMPRESSION: 1. Sepsis with fever, and tachycardia. 2. COVID-19 disease, mild 3. Pressure ulcers. 4. Status post CVA with aphasia. 5. G-tube status. 6. COPD. 7. Hypertension. 8. Seizure disorder. 9. Anemia. 10. Acute renal failure. 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 RECOMMENDATION: Continue with ceftriaxone Add Doxycycline Subjective ROS Limited/Unobtainable: Yes Constitutional: Reports: fever, other - Fb=501.8 Allergies: Coded Allergies: No Known Allergies (Unverified , 05/01/20) Objective Last 24 Hour Vital Signs Date Time Temp Pulse Resp B/P (MAP) Pulse Ox O2 Delivery O2 Flow Rate FiO2 05/04/20 12:00 94 05/04/20 12:00 98.8 94 18 115/60 (78) 97 05/04/20 09:00 Nasal Cannula 2.0 05/04/20 08:00 96 05/04/20 08:00 98.9 86 20 138/75 (96) 96 05/04/20 06:30 101.5 92 18 96 05/04/20 05:47 101.5 05/04/20 04:00 101.7 90 19 144/80 (101) 95 05/04/20 03:29 92 05/04/20 01:55 102.2 102 20 94 05/04/20 00:50 102.6 108 20 94 05/04/20 00:05 104.8 110 20 134/79 (97) 94 05/04/20 00:00 120 05/03/20 23:15 104.2 122 20 94 05/03/20 21:00 Nasal Cannula 2.0 05/03/20 20:00 97.2 116 18 141/84 (103) 90 05/03/20 20:00 113 05/03/20 16:00 104 05/03/20 15:53 98.2 108 20 110/75 (87) 96 Height (Feet): 5 Height (Inches): 11.00 Weight (Pounds): 198 HEENT: mucous membranes moist Respiratory/Chest: lungs clear, other - oxygen by nasal cannula Cardiovascular: normal rate Abdomen: soft, non tender, other - GT feeding Extremities: no edema, other - contracted Skin: ulcers Neurologic/Psychiatric: aphasia Microbiology Date/Time Source Procedure Growth Status 05/01/20 22:42 Blood Blood Culture - Preliminary NO GROWTH AFTER 48 HOURS Resulted 05/01/20 22:37 Blood Blood Culture - Preliminary NO GROWTH AFTER 48 HOURS Resulted 05/02/20 11:57 Nasopharynx SARS-CoV-2 RdRp Gene Assay - Final Complete 05/01/20 23:25 Nasal Nares MRSA Culture - Final Staphylococcus Aureus - Mrsa Complete 05/01/20 23:25 Rectum - Final NO CARBAPENEM-RESISTANT ENTEROBACTERI... Complete 05/01/20 23:25 Rectum VRE Culture - Final Enterococcus Faecalis - Vre Complete Laboratory Tests Test 05/04/20 00:30 Pro-B-Type Natriuretic Peptide 284 pg/mL (0-125) H Current Medications Medications (Trade) Dose Ordered Sig/Negro Route PRN Reason Start Time Stop Time Status Last Admin Dose Admin Acetaminophen (Tylenol) 650 mg Q6H PRN GT Temp >100.5 05/02/20 11:00 06/01/20 01:29 05/04/20 15:04 Allopurinol (Zyloprim) 100 mg DAILY GT 05/03/20 11:00 06/02/20 10:59 05/04/20 09:41 Aspirin (ASA) 81 mg DAILY GT 05/03/20 09:00 06/17/20 08:59 05/04/20 09:42 Ceftriaxone Sodium 1 gm/ Dextrose 55 ml @ 110 mls/hr Q24H IVPB 05/02/20 15:00 05/09/20 14:59 05/04/20 14:00 Docusate Sodium (Colace) 100 mg THREE TIMES A DAY GT 05/02/20 13:00 06/01/20 12:59 05/04/20 13:59 Famotidine (Pepcid) 20 mg BID GT 05/02/20 18:00 07/31/20 17:59 05/04/20 09:41 Hydralazine HCl (Apresoline) 25 mg Q4H PRN GT BP over 160 systolic 05/02/20 10:45 07/31/20 10:44 Levetiracetam (Keppra) 500 mg Q12HR GT 05/02/20 11:00 06/16/20 10:59 05/04/20 09:42 Tramadol HCl (Ultram) 50 mg Q6H PRN GT For Pain 05/02/20 10:45 05/09/20 10:44 Otoniel Narayan MD May 04, 2020 15:22
--- NOTE | 2020-05-04 15:47 | General Progress Note ---
Assessment/Plan Problem List: (1) Seizure ICD Codes: R56.9 - Unspecified convulsions; J12.89 - Other viral pneumonia SNOMED: 40152065, 967348224 (2) Sepsis ICD Codes: A41.9 - Sepsis, unspecified organism SNOMED: 40200678, 690196435 Qualifiers: Qualified Codes: A41.9 - Sepsis, unspecified organism (3) SHERRIE (acute kidney injury) ICD Codes: N17.9 - Acute kidney failure, unspecified SNOMED: 42798174, 3246763 (4) Pneumonia due to COVID-19 virus ICD Codes: U07.1 - COVID-19; J12.89 - Other viral pneumonia SNOMED: 904592944, 633080913 (5) Anemia ICD Codes: D64.9 - Anemia, unspecified SNOMED: 474750317 (6) Acute metabolic encephalopathy ICD Codes: G93.41 - Metabolic encephalopathy; J12.89 - Other viral pneumonia SNOMED: 47165122, 162655396 Status: progressing Assessment/Plan: abx per id prn supportive rx afebrile anemia covid positive pna azotemia malnutrition dehydration improving Subjective ROS Limited/Unobtainable: Yes Allergies: Coded Allergies: No Known Allergies (Unverified , 05/01/20) Objective Last 24 Hour Vital Signs Date Time Temp Pulse Resp B/P (MAP) Pulse Ox O2 Delivery O2 Flow Rate FiO2 05/04/20 12:00 94 05/04/20 12:00 98.8 94 18 115/60 (78) 97 05/04/20 09:00 Nasal Cannula 2.0 05/04/20 08:00 96 05/04/20 08:00 98.9 86 20 138/75 (96) 96 05/04/20 06:30 101.5 92 18 96 05/04/20 05:47 101.5 05/04/20 04:00 101.7 90 19 144/80 (101) 95 05/04/20 03:29 92 05/04/20 01:55 102.2 102 20 94 05/04/20 00:50 102.6 108 20 94 05/04/20 00:05 104.8 110 20 134/79 (97) 94 05/04/20 00:00 120 05/03/20 23:15 104.2 122 20 94 05/03/20 21:00 Nasal Cannula 2.0 05/03/20 20:00 97.2 116 18 141/84 (103) 90 05/03/20 20:00 113 05/03/20 16:00 104 05/03/20 15:53 98.2 108 20 110/75 (87) 96 Intake and Output 05/03/20 05/04/20 19:00 07:00 Intake Total 20 ml 360 ml Output Total 400 ml 600 ml Balance -380 ml -240 ml Free Water 120 ml Tube Feeding 20 ml 240 ml Output Urine Total 400 ml 600 ml Laboratory Tests 05/04/20 00:30: Pro-B-Type Natriuretic Peptide 284H Height (Feet): 5 Height (Inches): 11.00 Weight (Pounds): 198 Juan J Navarro MD May 04, 2020 15:47
[2020-05-04 16:00] VITALS: BP 121/67
[2020-05-04] MEDS ORDERED: traMADol 50mg tab GT PRN (16:45)
--- NOTE | 2020-05-04 16:51 | NUR ---
NURSE HAND-OFF REPORT: Important Events on Shift: fever. Patient transferred to [address] Telebox removed. No belongings. Attempted to contact family to inform but nobody picking up. Patient Status: afebrile at the moment Diet: Jevity 1.2 @ 20cc/hr Pending Orders: 2D echo Pending Results/Labs: Pending MD notification: Latest Vital Signs: Temperature 102.6 , Pulse 94 , B/P 115 /60 , Respiratory Rate 18 , O2 SAT 97 , Nasal Cannula, O2 Flow Rate 2.0 . Vital Sign Comment: 98.8F upon transfer EKG Rhythm: Sinus Rhythm Rhythm change?: N MD Notified?: MD Response: Latest Bergman Fall Score: 55 Fall Risk: High Risk Safety Measures: Call light Within Reach, Bed Alarm Zone 2, Side Rails Side Rails x3, Bed position Low and Locked. Fall Precautions: Yellow Socks Yellow Gown Report given to Alejandro TAVARES .
--- NOTE | 2020-05-04 16:55 | NUR ---
NURSE NOTES: Received pt from Telemetry floor. pt is alert and awake in bed. O2 is inplace. no coughing and fever noted at this time. pt is made comfortable in bed. g-tube feeding resumed, call light is placed within reach, will continue to follow plan of care.
[2020-05-04] MEDS ORDERED: HydrALAZINE 25mg tab GT PRN (17:00)
--- NOTE | 2020-05-04 19:35 | NUR ---
NURSE HAND-OFF: Important Events on Shift: n/a Patient Status:asleep and arousable Diet: g-tube feeding Pending Orders: Pending Results/Labs: Pending MD notification: Latest Vital Signs: Temperature 98.6 , Pulse 90 , B/P 121 /67 , Respiratory Rate 18 , O2 SAT 98 , Nasal Cannula, O2 Flow Rate 2.0 . Vital Sign Comment: Latest Bergman Fall Score: 55 Fall Risk: High Risk Safety Measures: Call light Within Reach, Bed Alarm Zone 2, Side Rails Side Rails x3, Bed position Low and Locked. Fall Precautions: Yellow Socks Yellow Gown Report given to Bro.
--- NOTE | 2020-05-04 19:37 | NUR ---
NURSE NOTES: Received report from Alejandro TAVARES.The patient is non-verbal, responsive to stimuli. He is on continuos oxygen via 2 liters NC well tolerated. The patient was noted with old dry sores in the Left ears which could be related to the use of nasal canula.The patient also has a G-tube feeding of Gevity 1.2 @ 20cc/hr well tolerated. Placement check was done and is intact with about 5 ml of residual noted. HOB was upright due to aspiration precaution. Siderails were also parted up for seizure precaution. The resident has an IV line in the LAC 22g saline log that is patent and asymptomatic.The bed in low and locked position and the siderails up x2. Call light within easy reach and will continue to monitor as indicated
[2020-05-04 20:00] VITALS: BP 134/89
[2020-05-04] MEDS: Doxycycline Monohydrate 100mg GT SCH (20:17)
[2020-05-04] MEDS ORDERED: Doxycycline Monohydrate 100mg GT SCH (21:00)
[2020-05-05] VITALS: BP 144/71
[2020-05-05 04:00] VITALS: BP 140/78
[2020-05-05] MEDS: Acetaminophen 650mg/20.3ml GT PRN ×2 (04:33→21:41)
--- NOTE | 2020-05-05 05:08 | NUR ---
NURSE NOTES: The patient was help with turning and re-positioning q2 hrs as indicated . The patient remained on 2 liters of oxygen via NC well tolerated. G-tube was checked for placement and it is intact. HOB remained upright and will continue to monitor
[2020-05-05 05:45] LABS: ALANINE AMINOTRANSFERASE 124 U/L (12-78); ALBUMIN/GLOBULIN RATIO 0.5 (1.0-2.7); ALKALINE PHOSPHATASE 98 U/L (46-116); ANION GAP 12 mmol/L (5-15); ASPARTATE AMINO TRANSFERASE 84 U/L (15-37); BILIRUBIN,TOTAL 0.4 MG/DL (0.2-1.0); BLOOD UREA NITROGEN 38 mg/dL (7-18); CALCIUM 8.9 MG/DL (8.5-10.1); CARBON DIOXIDE 28 MMOL/L (21-32); CHLORIDE 107 MMOL/L (98-107); CREATININE 1.4 MG/DL (0.55-1.30); PHOSPHORUS 3.1 MG/DL (2.5-4.9); POTASSIUM 3.9 MMOL/L (3.5-5.1); SODIUM 147 MMOL/L (136-145)
[2020-05-05 05:55] LABS: HEMATOCRIT 36.7 % (42.0-52.0); HEMOGLOBIN 11.5 G/DL (14.2-18.0); MEAN CORPUSCULAR VOLUME 88 FL (80-99); PLATELET COUNT 177 K/UL (150-450); RED BLOOD COUNT 4.16 M/UL (4.70-6.10); RED CELL DISTRIBUTION WIDTH 13.2 % (11.6-14.8); WHITE BLOOD COUNT 3.1 K/UL (4.8-10.8)
--- NOTE | 2020-05-05 06:47 | NUR ---
RD ASSESSMENT & RECOMMENDATIONS SEE CARE ACTIVITY FOR COMPLETE ASSESSMENT DAILY ESTIMATED NEEDS: Needs based on Pulmonary, wound 80.5kg abw 23-28 kcals/kg 4894-1677 total kcals 1.25-1.5 g protein/kg 101-121 g total protein 25-30 mL/kg 9360-6397 total fluid mLs NUTRITION DIAGNOSIS: Swallowing difficulty r/t dysphagia as evidenced by Pt is GT dep. CURRENT TF: Jevity 1.2 @20 ENTERAL NUTRITION RECOMMENDATIONS: Glucerna 1.2 @ 65ml/hr x24 hrs + Prosource 1pkt daily to provide 1560ml, 1872kcal, 94g +11 prot, 1256ml free water - Rec TF change to carb control formula as pt presents w/ elev BG on low rate of non carb control TF and on steroidal meds at this time. - Start Glucerna 1.2 @ 25ml/hr for 6 hrs. Advance as tolerated 10ml/hr q4-6 hrs to goal. - HOB over 30 degrees/ water flush of 250ml q 8 hrs If pt is to remain on Jevity 1.2, rec to increase goal rate to 65ml/hr x 24 hrs +added Prosource BID to provide 1560ml, 1872kcal, 86g + 22g prot, 1259ml free water ADDITIONAL RECOMMENDATIONS: 1) Maintain calibrated bed scale wts 2) Monitor BGs closely while on Decadron, need for hypoglycemics -> may benefit from carb controlled TF formula at this time 3) Check lytes, replete as needed (wnl) 4) Wound Care: Moiz BID via PEG .
--- NOTE | 2020-05-05 07:25 | NUR ---
NURSE HAND-OFF: Important Events on Shift:ALERT AND STABLE Patient Status: Diet: Pending Orders: Pending Results/Labs: Pending MD notification: Latest Vital Signs: Temperature 97.6 , Pulse 104 , B/P 140 /78 , Respiratory Rate 20 , O2 SAT 96 , Nasal Cannula, O2 Flow Rate 2.0 . Vital Sign Comment: Latest Bergman Fall Score: 55 Fall Risk: High Risk Safety Measures: Call light Within Reach, Bed Alarm Zone 2, Side Rails Side Rails x3, Bed position Low and Locked. Fall Precautions: Yellow Socks Yellow Gown Report given to .
--- NOTE | 2020-05-05 07:36 | NUR ---
NURSE NOTES: pt is asleep in the bed. no coughing noted; no SOB noted with O2 @2l/min via NC. No facial grimacing for pain noted at this time. HOB elevated, call light is within reach.
[2020-05-05 08:00] VITALS: BP 138/80
[2020-05-05] MEDS: Doxycycline Monohydrate 100mg GT SCH ×2 (08:59→21:36)
[2020-05-05] MEDS: Docusate 100mg/10ml Liq GT SCH ×3 (08:59→17:10)
[2020-05-05] MEDS: Allopurinol 100mg Tab GT SCH (08:59)
[2020-05-05] MEDS: Aspirin Baby 81mg GT SCH (09:00)
[2020-05-05] MEDS: levETIRAcetam 500mg/5ml Liquid GT SCH ×2 (09:00→21:36)
[2020-05-05 12:00] VITALS: BP 132/71
--- NOTE | 2020-05-05 12:37 | Nephrology Progress Note ---
Assessment/Plan Problem List: (1) SHERRIE (acute kidney injury) (2) Pneumonia due to COVID-19 virus (3) Sepsis (4) Acute metabolic encephalopathy (5) Seizure (6) Anemia Assessment Acute renal failure. Patient presents with serum creatinine of 1.6. Underlying chronic renal insufficiency. Serum creatinine 1.4 after hydration. Pneumonia due to COVID-19 virus Acute metabolic encephalopathy Seizures Sepsis Nonverbal, with GT feeding Anemia Plan May 05: Labs reviewed. Creatinine 1.4. Stable from renal standpoint of view. Continue per consultants. Previously: No labs drawn today. Will check renal parameters tomorrow. Stable from renal standpoint of view. Per ID Monitor renal parameters Albumin bolus Per orders Subjective ROS Limited/Unobtainable: Yes Objective Objective Last 24 Hour Vital Signs Date Time Temp Pulse Resp B/P (MAP) Pulse Ox O2 Delivery O2 Flow Rate FiO2 05/05/20 09:00 Nasal Cannula 2.0 05/05/20 08:00 98.0 101 19 138/80 (99) 97 05/05/20 04:00 97.6 104 20 140/78 (98) 96 05/05/20 00:00 98.2 104 20 144/71 (95) 96 05/04/20 21:00 Nasal Cannula 2.0 05/04/20 20:00 99.4 101 24 134/89 (104) 95 05/04/20 16:00 98.6 90 18 121/67 (85) 98 Intake and Output 05/04/20 05/05/20 19:00 07:00 Intake Total 90 ml 220 ml Output Total 650 ml 2460 ml Balance -560 ml -2240 ml Free Water 50 ml Tube Feeding 40 ml 220 ml Output Urine Total 650 ml 2460 ml Current Medications Medications (Trade) Dose Ordered Sig/Negro Route PRN Reason Start Time Stop Time Status Last Admin Dose Admin Acetaminophen (Tylenol) 650 mg Q6H PRN GT Temp >100.5 05/04/20 21:00 06/01/20 20:59 05/05/20 04:33 Allopurinol (Zyloprim) 100 mg DAILY GT 05/05/20 09:00 06/02/20 10:59 05/05/20 08:59 Aspirin (ASA) 81 mg DAILY GT 05/05/20 09:00 06/17/20 08:59 05/05/20 09:00 Ceftriaxone Sodium 1 gm/ Dextrose 55 ml @ 110 mls/hr Q24H IVPB 05/05/20 15:00 05/09/20 14:59 Docusate Sodium (Colace) 100 mg THREE TIMES A DAY GT 05/04/20 18:00 06/01/20 12:59 05/05/20 08:59 Doxycycline Monohydrate (Doxycycline Monohydrate) 100 mg EVERY 12 HOURS GT 05/04/20 21:00 05/11/20 20:59 05/05/20 08:59 Famotidine (Pepcid) 20 mg BID GT 05/04/20 18:00 07/31/20 17:59 05/05/20 08:59 Hydralazine HCl (Apresoline) 25 mg Q4H PRN GT BP over 160 systolic 05/04/20 17:00 07/31/20 16:59 Levetiracetam (Keppra) 500 mg Q12HR GT 05/04/20 21:00 06/16/20 10:59 05/05/20 09:00 Tramadol HCl (Ultram) 50 mg Q6H PRN GT For Pain 05/04/20 16:45 05/09/20 10:44 Laboratory Tests 05/05/20 05:00: White Blood Count 3.1L, Red Blood Count 4.16L, Hemoglobin 11.5L, Hematocrit 36.7L, Mean Corpuscular Volume 88, Mean Corpuscular Hemoglobin 27.7, Mean Corpuscular Hemoglobin Concent 31.5L, Red Cell Distribution Width 13.2, Platelet Count 177, Mean Platelet Volume 8.0, Neutrophils (%) (Auto) , Lymphocytes (%) (Auto) , Monocytes (%) (Auto) , Eosinophils (%) (Auto) , Basophils (%) (Auto) , Differential Total Cells Counted 100, Neutrophils % ( Manual) 63, Lymphocytes % (Manual) 26, Monocytes % (Manual) 11H, Eosinophils % ( Manual) 0, Basophils % (Manual) 0, Band Neutrophils 0, Platelet Estimate Adequate, Platelet Morphology Normal, Hypochromasia 1+, Anisocytosis 1+, Sodium Level 147H, Potassium Level 3.9, Chloride Level 107, Carbon Dioxide Level 28, Anion Gap 12, Blood Urea Nitrogen 38H, Creatinine 1.4H, Estimat Glomerular Filtration Rate 51.4, Glucose Level 105, Calcium Level 8.9, Phosphorus Level 3.1 , Magnesium Level 2.0, Total Bilirubin 0.4, Aspartate Amino Transf (AST/SGOT) 84H, Alanine Aminotransferase (ALT/SGPT) 124H, Alkaline Phosphatase 98, C- Reactive Protein, Quantitative 4.0H, Pro-B-Type Natriuretic Peptide 186H, Total Protein 9.2H, Albumin 3.0L, Globulin 6.2, Albumin/Globulin Ratio 0.5L Height (Feet): 5 Height (Inches): 11.00 Weight (Pounds): 198 General Appearance: lethargic Cardiovascular: tachycardia Respiratory/Chest: decreased breath sounds Abdomen: distended Objective No change Adal Kenney MD May 05, 2020 12:37
[2020-05-05] MEDS: cefTRIAXone 1 GM in D5W 55 ML IVPB SCH (14:39)
--- NOTE | 2020-05-05 15:48 | NUR ---
NURSE NOTES: Called Dr. Otoniel Narayan, notified MD about [id number] bacteria found in blood per microbiology report. Dr Narayan says "no new order" "is usually contamination."
[2020-05-05 16:00] VITALS: BP 132/79
--- NOTE | 2020-05-05 19:25 | NUR ---
NURSE HAND-OFF: Important Events on Shift: N/A Patient Status: ASLEEP AND AROUSABLE Diet: G-TUBE JEVITY 1.2 Pending Orders: Pending Results/Labs: Pending MD notification: Latest Vital Signs: Temperature 98.0 , Pulse 105 , B/P 132 /79 , Respiratory Rate 19 , O2 SAT 98 , Nasal Cannula, O2 Flow Rate 2.0 . Vital Sign Comment: Latest Bergman Fall Score: 55 Fall Risk: High Risk Safety Measures: Call light Within Reach, Bed Alarm Zone 2, Side Rails Side Rails x3, Bed position Low and Locked. Fall Precautions: Yellow Socks Yellow Gown Report given to ISAURA.
[2020-05-05 20:00] VITALS: BP 131/93
--- NOTE | 2020-05-05 20:29 | NUR ---
NURSE NOTES: Patient in bed, asleep. Non verbal. Unable to make needs known. Respiration is even and unlabored. Kept clean and comfortable. Provided safe environment. Bed in low and locked position. No s/s of pain or discomfort noted. Abdomen is soft, GT tube noted, feeding is infusing as ordered. Iv site noted. Will continue plan of care. Frequent checks.
--- NOTE | 2020-05-05 22:19 | General Progress Note ---
Assessment/Plan Problem List: (1) Seizure ICD Codes: R56.9 - Unspecified convulsions; J12.89 - Other viral pneumonia SNOMED: 02971883, 959022928 (2) Sepsis ICD Codes: A41.9 - Sepsis, unspecified organism SNOMED: 47065286, 174438395 Qualifiers: Qualified Codes: A41.9 - Sepsis, unspecified organism (3) SHERRIE (acute kidney injury) ICD Codes: N17.9 - Acute kidney failure, unspecified SNOMED: 38746847, 2775341 (4) Pneumonia due to COVID-19 virus ICD Codes: U07.1 - COVID-19; J12.89 - Other viral pneumonia SNOMED: 547035564, 616665509 (5) Anemia ICD Codes: D64.9 - Anemia, unspecified SNOMED: 777417188 (6) Acute metabolic encephalopathy ICD Codes: G93.41 - Metabolic encephalopathy; J12.89 - Other viral pneumonia SNOMED: 16649495, 763423505 Status: progressing Assessment/Plan: covid positive pna anemia acute kidney injury improving pna improving supportive rx Subjective ROS Limited/Unobtainable: Yes Allergies: Coded Allergies: No Known Allergies (Unverified , 05/01/20) Objective Last 24 Hour Vital Signs Date Time Temp Pulse Resp B/P (MAP) Pulse Ox O2 Delivery O2 Flow Rate FiO2 05/05/20 20:00 100.4 116 22 131/93 (106) 96 05/05/20 16:00 98.0 105 19 132/79 (96) 98 05/05/20 12:00 98.2 103 19 132/71 (91) 99 05/05/20 09:00 Nasal Cannula 2.0 05/05/20 08:00 98.0 101 19 138/80 (99) 97 05/05/20 04:00 97.6 104 20 140/78 (98) 96 05/05/20 00:00 98.2 104 20 144/71 (95) 96 Intake and Output 05/04/20 05/05/20 19:00 07:00 Intake Total 90 ml 220 ml Output Total 650 ml 2460 ml Balance -560 ml -2240 ml Free Water 50 ml Tube Feeding 40 ml 220 ml Output Urine Total 650 ml 2460 ml Laboratory Tests 05/05/20 05:00: White Blood Count 3.1L, Red Blood Count 4.16L, Hemoglobin 11.5L, Hematocrit 36.7L, Mean Corpuscular Volume 88, Mean Corpuscular Hemoglobin 27.7, Mean Corpuscular Hemoglobin Concent 31.5L, Red Cell Distribution Width 13.2, Platelet Count 177, Mean Platelet Volume 8.0, Neutrophils (%) (Auto) , Lymphocytes (%) (Auto) , Monocytes (%) (Auto) , Eosinophils (%) (Auto) , Basophils (%) (Auto) , Differential Total Cells Counted 100, Neutrophils % ( Manual) 63, Lymphocytes % (Manual) 26, Monocytes % (Manual) 11H, Eosinophils % ( Manual) 0, Basophils % (Manual) 0, Band Neutrophils 0, Platelet Estimate Adequate, Platelet Morphology Normal, Hypochromasia 1+, Anisocytosis 1+, Sodium Level 147H, Potassium Level 3.9, Chloride Level 107, Carbon Dioxide Level 28, Anion Gap 12, Blood Urea Nitrogen 38H, Creatinine 1.4H, Estimat Glomerular Filtration Rate 51.4, Glucose Level 105, Calcium Level 8.9, Phosphorus Level 3.1 , Magnesium Level 2.0, Total Bilirubin 0.4, Aspartate Amino Transf (AST/SGOT) 84H, Alanine Aminotransferase (ALT/SGPT) 124H, Alkaline Phosphatase 98, C- Reactive Protein, Quantitative 4.0H, Pro-B-Type Natriuretic Peptide 186H, Total Protein 9.2H, Albumin 3.0L, Globulin 6.2, Albumin/Globulin Ratio 0.5L Height (Feet): 5 Height (Inches): 11.00 Weight (Pounds): 198 Juan J Navarro MD May 05, 2020 22:19
[2020-05-06] VITALS: BP 136/93
--- NOTE | 2020-05-06 00:13 | Cardiology Progress Note ---
Subjective DATE OF SERVICE: May 05, 2020 Still with tachycardic heart rate. Hypoxic requiring O2 supplementation Objective Last 24 Hour Vital Signs Date Time Temp Pulse Resp B/P (MAP) Pulse Ox O2 Delivery O2 Flow Rate FiO2 05/05/20 22:11 100.4 05/05/20 21:00 Nasal Cannula 2.0 05/05/20 20:00 100.4 116 22 131/93 (106) 96 05/05/20 16:00 98.0 105 19 132/79 (96) 98 05/05/20 12:00 98.2 103 19 132/71 (91) 99 05/05/20 09:00 Nasal Cannula 2.0 05/05/20 08:00 98.0 101 19 138/80 (99) 97 05/05/20 04:00 97.6 104 20 140/78 (98) 96 LUNGS: bilateral rhonchi CARDIAC: normal S1 and S2, tachycardia ABDOMEN: normal bowel sounds, non tender, soft, no organomegaly EXTREMITIES: no calf tenderness, No edema Laboratory Tests Test 05/05/20 05:00 White Blood Count 3.1 K/UL (4.8-10.8) L Red Blood Count 4.16 M/UL (4.70-6.10) L Hemoglobin 11.5 G/DL (14.2-18.0) L Hematocrit 36.7 % (42.0-52.0) L Mean Corpuscular Volume 88 FL (80-99) Mean Corpuscular Hemoglobin 27.7 PG (27.0-31.0) Mean Corpuscular Hemoglobin Concent 31.5 G/DL (32.0-36.0) L Red Cell Distribution Width 13.2 % (11.6-14.8) Platelet Count 177 K/UL (150-450) Mean Platelet Volume 8.0 FL (6.5-10.1) Neutrophils (%) (Auto) % (45.0-75.0) Lymphocytes (%) (Auto) % (20.0-45.0) Monocytes (%) (Auto) % (1.0-10.0) Eosinophils (%) (Auto) % (0.0-3.0) Basophils (%) (Auto) % (0.0-2.0) Differential Total Cells Counted 100 Neutrophils % (Manual) 63 % (45-75) Lymphocytes % (Manual) 26 % (20-45) Monocytes % (Manual) 11 % (1-10) H Eosinophils % (Manual) 0 % (0-3) Basophils % (Manual) 0 % (0-2) Band Neutrophils 0 % (0-8) Platelet Estimate Adequate Platelet Morphology Normal Hypochromasia 1+ Anisocytosis 1+ Sodium Level 147 MMOL/L (136-145) H Potassium Level 3.9 MMOL/L (3.5-5.1) Chloride Level 107 MMOL/L (98-107) Carbon Dioxide Level 28 MMOL/L (21-32) Anion Gap 12 mmol/L (5-15) Blood Urea Nitrogen 38 mg/dL (7-18) H Creatinine 1.4 MG/DL (0.55-1.30) H Estimat Glomerular Filtration Rate 51.4 mL/min (>60) Glucose Level 105 MG/DL (74-106) Calcium Level 8.9 MG/DL (8.5-10.1) Phosphorus Level 3.1 MG/DL (2.5-4.9) Magnesium Level 2.0 MG/DL (1.8-2.4) Total Bilirubin 0.4 MG/DL (0.2-1.0) Aspartate Amino Transf (AST/SGOT) 84 U/L (15-37) H Alanine Aminotransferase (ALT/SGPT) 124 U/L (12-78) H Alkaline Phosphatase 98 U/L (46-116) C-Reactive Protein, Quantitative 4.0 mg/dL (0.00-0.90) H Pro-B-Type Natriuretic Peptide 186 pg/mL (0-125) H Total Protein 9.2 G/DL (6.4-8.2) H Albumin 3.0 G/DL (3.4-5.0) L Globulin 6.2 g/dL Albumin/Globulin Ratio 0.5 (1.0-2.7) L Microbiology Date/Time Source Procedure Growth Status 05/04/20 00:35 Blood Blood Culture - Preliminary NO GROWTH AFTER 24 HOURS Resulted 05/04/20 00:30 Blood Blood Culture - Preliminary NO GROWTH AFTER 24 HOURS Resulted EKG INTERPRETATION: Sinus tachycardia QT prolongation Assessment/Plan Assessment/Plan COVID19 PNA Sinus tachycardia Hypoxia Decreasing BNP; no clinical signs of CHF Mild protein calorie malnutrition Dehydration/hypernatremia Hypotonic IVF Antiviral rx Anti-coagulation steroids per pulmonary Chavez Jose MD May 06, 2020 00:13
[2020-05-06 04:00] VITALS: BP 127/81
--- NOTE | 2020-05-06 07:10 | NUR ---
NURSE HAND-OFF: Important Events on Shift:Temperature 100.4 at 1999 Patient Status: Diet: Pending Orders: Pending Results/Labs: Pending MD notification: Latest Vital Signs: Temperature 97.9 , Pulse 108 , B/P 127 /81 , Respiratory Rate 20 , O2 SAT 94 , Nasal Cannula, O2 Flow Rate 2.0 . Vital Sign Comment: Latest Bergman Fall Score: 55 Fall Risk: High Risk Safety Measures: Call light Within Reach, Bed Alarm Zone 2, Side Rails Side Rails x3, Bed position Low and Locked. Fall Precautions: Yellow Socks Yellow Gown Report given to ANUSHA Escamilla.
--- NOTE | 2020-05-06 07:20 | NUR ---
NURSE NOTES: received patient in bed, asleep. Non verbal.bed bound, Unable to make needs known. Respiration is even and unlabored. no fascial grimace noted, IVF patent and infusing well, no sign of infiltration noted, on Gtube feeding on going , abdomen soft,no residual noted,HOB elevated at 45 degree, aspiration , fall and isolation precaution maintained, Bed in low and locked position. provided safe environment ,Will continue plan of care. abel floyd
[2020-05-06 07:53] VITALS: BP 122/78
[2020-05-06] MEDS: levETIRAcetam 500mg/5ml Liquid GT SCH ×2 (08:14→20:12)
[2020-05-06] MEDS: Doxycycline Monohydrate 100mg GT SCH ×2 (08:14→20:12)
[2020-05-06] MEDS: Docusate 100mg/10ml Liq GT SCH ×3 (08:14→17:31)
[2020-05-06] MEDS: Aspirin Baby 81mg GT SCH (08:14)
[2020-05-06] MEDS: Allopurinol 100mg Tab GT SCH (08:14)
[2020-05-06 12:00] VITALS: BP 131/83
--- NOTE | 2020-05-06 13:01 | Nephrology Progress Note ---
Assessment/Plan Problem List: (1) SHERRIE (acute kidney injury) (2) Pneumonia due to COVID-19 virus (3) Sepsis (4) Acute metabolic encephalopathy (5) Seizure (6) Anemia Assessment Acute renal failure. Patient presents with serum creatinine of 1.6. Underlying chronic renal insufficiency. Serum creatinine 1.4 after hydration. Pneumonia due to COVID-19 virus Acute metabolic encephalopathy Seizures Sepsis Nonverbal, with GT feeding Anemia Plan May 06: No labs drawn today. Will check renal parameters tomorrow. Continue per consultants. May 05: Labs reviewed. Creatinine 1.4. Stable from renal standpoint of view. Continue per consultants. Previously: No labs drawn today. Will check renal parameters tomorrow. Stable from renal standpoint of view. Per ID Monitor renal parameters Albumin bolus Per orders Subjective ROS Limited/Unobtainable: Yes Constitutional: Reports: malaise Objective Objective Last 24 Hour Vital Signs Date Time Temp Pulse Resp B/P (MAP) Pulse Ox O2 Delivery O2 Flow Rate FiO2 05/06/20 12:00 99.7 104 20 131/83 (99) 95 05/06/20 08:20 Nasal Cannula 2.0 05/06/20 07:53 98.0 103 20 122/78 (93) 96 05/06/20 04:00 97.9 108 20 127/81 (96) 94 05/06/20 00:00 99.3 108 19 136/93 (107) 96 05/05/20 22:11 100.4 05/05/20 21:00 Nasal Cannula 2.0 05/05/20 20:00 100.4 116 22 131/93 (106) 96 05/05/20 16:00 98.0 105 19 132/79 (96) 98 Intake and Output 05/05/20 05/06/20 19:00 07:00 Intake Total 140 ml 870 ml Output Total 420 ml Balance -280 ml 870 ml Free Water 100 ml 200 ml IV Total 450 ml Tube Feeding 40 ml 220 ml Output Urine Total 420 ml # Voids 6 No blood drawn today Height (Feet): 5 Height (Inches): 11.00 Weight (Pounds): 191 General Appearance: no apparent distress Objective No change Adal Kenney MD May 06, 2020 13:01
[2020-05-06] MEDS: cefTRIAXone 1 GM in D5W 55 ML IVPB SCH (15:15)
[2020-05-06 15:30] VITALS: BP 126/96
--- NOTE | 2020-05-06 15:58 | Infectious Diseases Prog Note ---
Assessment/Plan Assessment/Plan IMPRESSION: 1. Sepsis with fever, and tachycardia. 2. COVID-19 disease, mild 3. Pressure ulcers. 4. Status post CVA with aphasia. 5. G-tube status. 6. COPD. 7. Hypertension. 8. Seizure disorder. 9. Anemia. 10. Acute renal failure. 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 RECOMMENDATION: Continue with ceftriaxone & Doxycycline Subjective ROS Limited/Unobtainable: Yes Allergies: Coded Allergies: No Known Allergies (Unverified , 05/01/20) Objective Last 24 Hour Vital Signs Date Time Temp Pulse Resp B/P (MAP) Pulse Ox O2 Delivery O2 Flow Rate FiO2 05/06/20 15:30 98.1 109 20 126/96 (106) 95 05/06/20 12:00 99.7 104 20 131/83 (99) 95 05/06/20 08:20 Nasal Cannula 2.0 05/06/20 07:53 98.0 103 20 122/78 (93) 96 05/06/20 04:00 97.9 108 20 127/81 (96) 94 05/06/20 00:00 99.3 108 19 136/93 (107) 96 05/05/20 22:11 100.4 05/05/20 21:00 Nasal Cannula 2.0 05/05/20 20:00 100.4 116 22 131/93 (106) 96 05/05/20 16:00 98.0 105 19 132/79 (96) 98 Height (Feet): 5 Height (Inches): 11.00 Weight (Pounds): 191 General Appearance: no acute distress HEENT: mucous membranes moist Respiratory/Chest: lungs clear, other - oxygen by nasal cannula Cardiovascular: tachycardia Abdomen: soft, non tender, other - GT feeding Extremities: no edema Skin: ulcers Microbiology Date/Time Source Procedure Growth Status 05/04/20 00:35 Blood Blood Culture - Preliminary NO GROWTH AFTER 48 HOURS Resulted 05/04/20 00:30 Blood Blood Culture - Preliminary NO GROWTH AFTER 48 HOURS Resulted Current Medications Medications (Trade) Dose Ordered Sig/Negro Route PRN Reason Start Time Stop Time Status Last Admin Dose Admin Acetaminophen (Tylenol) 650 mg Q6H PRN GT Temp >100.5 05/04/20 21:00 06/01/20 20:59 05/05/20 21:41 Allopurinol (Zyloprim) 100 mg DAILY GT 05/05/20 09:00 06/02/20 10:59 05/06/20 08:14 Aspirin (ASA) 81 mg DAILY GT 05/05/20 09:00 06/17/20 08:59 05/06/20 08:14 Ceftriaxone Sodium 1 gm/ Dextrose 55 ml @ 110 mls/hr Q24H IVPB 05/05/20 15:00 05/09/20 14:59 05/06/20 15:15 Docusate Sodium (Colace) 100 mg THREE TIMES A DAY GT 05/04/20 18:00 06/01/20 12:59 05/06/20 12:27 Doxycycline Monohydrate (Doxycycline Monohydrate) 100 mg EVERY 12 HOURS GT 05/04/20 21:00 05/11/20 20:59 05/06/20 08:14 Famotidine (Pepcid) 20 mg BID GT 05/04/20 18:00 07/31/20 17:59 05/06/20 08:14 Hydralazine HCl (Apresoline) 25 mg Q4H PRN GT BP over 160 systolic 05/04/20 17:00 07/31/20 16:59 Levetiracetam (Keppra) 500 mg Q12HR GT 05/04/20 21:00 06/16/20 10:59 05/06/20 08:14 Sodium Chloride 1,000 ml @ 75 mls/hr [id number] IV 05/06/20 00:15 06/05/20 00:14 05/06/20 12:27 Tramadol HCl (Ultram) 50 mg Q6H PRN GT For Pain 05/04/20 16:45 05/09/20 10:44 Otoniel Narayan MD May 06, 2020 15:58
--- NOTE | 2020-05-06 19:05 | NUR ---
NURSE HAND-OFF: Important Events on Shift:none Patient Status: no change Diet: npo x G tube feeding Pending Orders: [none] Pending Results/Labs:[none] Pending MD notification:[none] Latest Vital Signs: Temperature 98.1 , Pulse 109 , B/P 126 /96 , Respiratory Rate 20 , O2 SAT 95 , Nasal Cannula, O2 Flow Rate 2.0 . Vital Sign Comment: [normal] Latest Bergman Fall Score: 55 Fall Risk: High Risk Safety Measures: Call light Within Reach, Bed Alarm Zone 2, Side Rails Side Rails x3, Bed position Low and Locked. Fall Precautions: Yellow Socks Yellow Gown Report given to Mr Benjie RN.
--- NOTE | 2020-05-06 19:36 | NUR ---
NURSE NOTES: Pt. received from ANUSHA Parker. Pt. nonverbal, breathing even and unlabored on 2L NC, no indications of respiratory distress. Gtube with Jevity 1.2 at 20cc noted. Gonzales intact and draining yellow urine well. Bed low and locked, head of bed elevated, side rails x2 padded, x3 rails are up, bed alarm active, and call light in reach.
[2020-05-06 20:00] VITALS: BP 146/75
--- NOTE | 2020-05-06 22:43 | Cardiology Progress Note ---
Subjective DATE OF SERVICE: May 06, 2020 Still with tachycardic heart rate, but improving. Hypoxic requiring low flow O2 supplementation by NC Objective Last 24 Hour Vital Signs Date Time Temp Pulse Resp B/P (MAP) Pulse Ox O2 Delivery O2 Flow Rate FiO2 05/06/20 21:00 Nasal Cannula 2.0 05/06/20 20:00 98.2 71 19 146/75 (98) 98 05/06/20 15:30 98.1 109 20 126/96 (106) 95 05/06/20 12:00 99.7 104 20 131/83 (99) 95 05/06/20 08:20 Nasal Cannula 2.0 05/06/20 07:53 98.0 103 20 122/78 (93) 96 05/06/20 04:00 97.9 108 20 127/81 (96) 94 05/06/20 00:00 99.3 108 19 136/93 (107) 96 LUNGS: bilateral rhonchi CARDIAC: normal S1 and S2, tachycardia ABDOMEN: normal bowel sounds, non tender, soft, no organomegaly EXTREMITIES: no calf tenderness, No edema Microbiology Date/Time Source Procedure Growth Status 05/04/20 00:35 Blood Blood Culture - Preliminary NO GROWTH AFTER 48 HOURS Resulted 05/04/20 00:30 Blood Blood Culture - Preliminary NO GROWTH AFTER 48 HOURS Resulted Assessment/Plan Assessment/Plan COVID19 PNA Sinus tachycardia Hypoxia Decreasing BNP; no clinical signs of CHF Mild protein calorie malnutrition Dehydration/hypernatremia Hypotonic IVF Antiviral rx Anti-coagulation steroids per pulmonary Chavez Jose MD May 06, 2020 22:43
[2020-05-07] VITALS: BP 127/80
--- NOTE | 2020-05-07 | General Progress Note ---
Assessment/Plan Problem List: (1) Seizure ICD Codes: R56.9 - Unspecified convulsions; J12.89 - Other viral pneumonia SNOMED: 86203675, 287596261 (2) Sepsis ICD Codes: A41.9 - Sepsis, unspecified organism SNOMED: 84384729, 774136347 Qualifiers: Qualified Codes: A41.9 - Sepsis, unspecified organism (3) SHERRIE (acute kidney injury) ICD Codes: N17.9 - Acute kidney failure, unspecified SNOMED: 87570333, 4749542 (4) Pneumonia due to COVID-19 virus ICD Codes: U07.1 - COVID-19; J12.89 - Other viral pneumonia SNOMED: 342121013, 997228059 (5) Anemia ICD Codes: D64.9 - Anemia, unspecified SNOMED: 638949177 (6) Acute metabolic encephalopathy ICD Codes: G93.41 - Metabolic encephalopathy; J12.89 - Other viral pneumonia SNOMED: 12526400, 247990837 Status: progressing Assessment/Plan: late entry: afebrile not hypoxic covid positive pna anemia dehydration Subjective ROS Limited/Unobtainable: Yes Allergies: Coded Allergies: No Known Allergies (Unverified , 05/01/20) Objective Last 24 Hour Vital Signs Date Time Temp Pulse Resp B/P (MAP) Pulse Ox O2 Delivery O2 Flow Rate FiO2 05/06/20 21:00 Nasal Cannula 2.0 05/06/20 20:00 98.2 71 19 146/75 (98) 98 05/06/20 15:30 98.1 109 20 126/96 (106) 95 05/06/20 12:00 99.7 104 20 131/83 (99) 95 05/06/20 08:20 Nasal Cannula 2.0 05/06/20 07:53 98.0 103 20 122/78 (93) 96 05/06/20 04:00 97.9 108 20 127/81 (96) 94 05/06/20 00:00 99.3 108 19 136/93 (107) 96 Intake and Output 05/05/20 05/06/20 19:00 07:00 Intake Total 140 ml 870 ml Output Total 420 ml Balance -280 ml 870 ml Free Water 100 ml 200 ml IV Total 450 ml Tube Feeding 40 ml 220 ml Output Urine Total 420 ml # Voids 6 Height (Feet): 5 Height (Inches): 11.00 Weight (Pounds): 191 Juan J Navarro MD May 07, 2020 00:00
[2020-05-07] MEDS: Acetaminophen 650mg/20.3ml GT PRN ×2 (00:11→20:44)
[2020-05-07 04:00] VITALS: BP 125/75
--- NOTE | 2020-05-07 04:30 | NUR ---
NURSE NOTES: Oral care provided. Pt. able to follow instructions, specifically opening mouth and protracting tongue to assist with oral care.
--- NOTE | 2020-05-07 07:22 | NUR ---
NURSE HAND-OFF: Important Events on Shift:[wound care performed, oral care performed] Patient Status: stable Diet: Jevity 1.2 Pending Orders: [na] Pending Results/Labs:na Pending MD notification:na Latest Vital Signs: Temperature 98.4 , Pulse 91 , B/P 125 /75 , Respiratory Rate 21 , O2 SAT 96 , Nasal Cannula, O2 Flow Rate 2.0 . Vital Sign Comment: stable, temperature improved Latest Bergman Fall Score: 55 Fall Risk: High Risk Safety Measures: Call light Within Reach, Bed Alarm Zone 1, Side Rails Side Rails x3, Bed position Low and Locked. Fall Precautions: Yellow Socks Yellow Gown Report given to ANUSHA Garcia.
--- NOTE | 2020-05-07 07:52 | NUR ---
NURSE NOTES: Report received from Saul TAVARES. Patient seen on rounds, AxOx0, GCS= 7, responsive to pain and touch, no signs of distress, FLACC 0. PIV on left AC patent and intact with IVF running. Gtube site intact and infusing Jevity 1.2 as ordered. Gonzales cath secured and draining. Nurse reports new pressure injury on left 2nd toe, was documented and dressed. Isolation precautions maintained. Bed low and locked, siderails up x3 and padded, will continue to monitor.
[2020-05-07 08:00] VITALS: BP 120/75
[2020-05-07] MEDS: Doxycycline Monohydrate 100mg GT SCH ×2 (09:01→20:17)
[2020-05-07] MEDS: levETIRAcetam 500mg/5ml Liquid GT SCH ×2 (09:01→20:17)
[2020-05-07] MEDS: Allopurinol 100mg Tab GT SCH (09:01)
[2020-05-07] MEDS: Docusate 100mg/10ml Liq GT SCH ×3 (09:01→17:24)
[2020-05-07] MEDS: Aspirin Baby 81mg GT SCH (09:01)
--- NOTE | 2020-05-07 11:09 | Infectious Diseases Prog Note ---
Assessment/Plan Assessment/Plan IMPRESSION: 1. Sepsis with fever, and tachycardia. 2. COVID-19 disease, mild 3. Pressure ulcers. 4. Status post CVA with aphasia. 5. G-tube status. 6. COPD. 7. Hypertension. 8. Seizure disorder. 9. Anemia. 10. Acute renal failure. 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 RECOMMENDATION: Continue with ceftriaxone & Doxycycline Discontinue Oxygen Case was D/W RN & wound care Subjective ROS Limited/Unobtainable: Yes Constitutional: Reports: fever, other - Tz=033.8 Allergies: Coded Allergies: No Known Allergies (Unverified , 05/01/20) Objective Last 24 Hour Vital Signs Date Time Temp Pulse Resp B/P (MAP) Pulse Ox O2 Delivery O2 Flow Rate FiO2 05/07/20 09:00 Nasal Cannula 2.0 05/07/20 08:00 98.2 97 20 120/75 (90) 97 05/07/20 04:00 98.4 91 21 125/75 (92) 96 05/07/20 00:41 99.7 05/07/20 00:41 99.4 05/07/20 00:00 100.8 105 22 127/80 (96) 97 05/06/20 21:00 Nasal Cannula 2.0 05/06/20 20:00 98.2 71 19 146/75 (98) 98 05/06/20 15:30 98.1 109 20 126/96 (106) 95 05/06/20 12:00 99.7 104 20 131/83 (99) 95 Height (Feet): 5 Height (Inches): 11.00 Weight (Pounds): 196 HEENT: mucous membranes moist Respiratory/Chest: lungs clear, other - OXygen by nasal canula Cardiovascular: normal rate Abdomen: soft, non tender, other - GT feeding Extremities: no edema Skin: ulcers Neurologic/Psychiatric: aphasia Current Medications Medications (Trade) Dose Ordered Sig/Negro Route PRN Reason Start Time Stop Time Status Last Admin Dose Admin Acetaminophen (Tylenol) 650 mg Q6H PRN GT Temp >100.5 05/04/20 21:00 06/01/20 20:59 05/07/20 00:11 Allopurinol (Zyloprim) 100 mg DAILY GT 05/05/20 09:00 06/02/20 10:59 05/07/20 09:01 Aspirin (ASA) 81 mg DAILY GT 05/05/20 09:00 06/17/20 08:59 05/07/20 09:01 Ceftriaxone Sodium 1 gm/ Dextrose 55 ml @ 110 mls/hr Q24H IVPB 05/05/20 15:00 05/09/20 14:59 05/06/20 15:15 Docusate Sodium (Colace) 100 mg THREE TIMES A DAY GT 05/04/20 18:00 06/01/20 12:59 05/07/20 09:01 Doxycycline Monohydrate (Doxycycline Monohydrate) 100 mg EVERY 12 HOURS GT 05/04/20 21:00 05/11/20 20:59 05/07/20 09:01 Famotidine (Pepcid) 20 mg BID GT 05/04/20 18:00 07/31/20 17:59 05/07/20 09:01 Hydralazine HCl (Apresoline) 25 mg Q4H PRN GT BP over 160 systolic 05/04/20 17:00 07/31/20 16:59 Levetiracetam (Keppra) 500 mg Q12HR GT 05/04/20 21:00 06/16/20 10:59 05/07/20 09:01 Sodium Chloride 1,000 ml @ 75 mls/hr [id number] IV 05/06/20 00:15 06/05/20 00:14 05/07/20 02:30 Tramadol HCl (Ultram) 50 mg Q6H PRN GT For Pain 05/04/20 16:45 05/09/20 10:44 Otoniel Narayan MD May 07, 2020 11:09
[2020-05-07 12:00] VITALS: BP 114/67
--- NOTE | 2020-05-07 13:08 | Nephrology Progress Note ---
Assessment/Plan Problem List: (1) SHERRIE (acute kidney injury) (2) Pneumonia due to COVID-19 virus (3) Sepsis (4) Acute metabolic encephalopathy (5) Seizure (6) Anemia Assessment Acute renal failure. Patient presents with serum creatinine of 1.6. Underlying chronic renal insufficiency. Serum creatinine 1.4 after hydration. Pneumonia due to COVID-19 virus Acute metabolic encephalopathy Seizures Sepsis Nonverbal, with GT feeding Anemia Plan May 07: No labs done today. Check labs tomorrow May 06: No labs drawn today. Continue per consultants. May 05: Labs reviewed. Creatinine 1.4. Stable from renal standpoint of view. Continue per consultants. Previously: No labs drawn today. Will check renal parameters tomorrow. Stable from renal standpoint of view. Per ID Monitor renal parameters Albumin bolus Per orders Subjective ROS Limited/Unobtainable: Yes Objective Objective Last 24 Hour Vital Signs Date Time Temp Pulse Resp B/P (MAP) Pulse Ox O2 Delivery O2 Flow Rate FiO2 05/07/20 12:00 98.2 93 22 114/67 (83) 95 05/07/20 09:00 Nasal Cannula 2.0 05/07/20 08:00 98.2 97 20 120/75 (90) 97 05/07/20 04:00 98.4 91 21 125/75 (92) 96 05/07/20 00:41 99.7 05/07/20 00:41 99.4 05/07/20 00:00 100.8 105 22 127/80 (96) 97 05/06/20 21:00 Nasal Cannula 2.0 05/06/20 20:00 98.2 71 19 146/75 (98) 98 05/06/20 15:30 98.1 109 20 126/96 (106) 95 Intake and Output 05/06/20 05/07/20 19:00 07:00 Intake Total 1375 ml 600 ml Output Total 1000 ml Balance 1375 ml -400 ml Free Water 300 ml IV Total 835 ml 600 ml Tube Feeding 240 ml Output Urine Total 1000 ml # Voids 1 # Bowel Movements 1 No blood drawn today Height (Feet): 5 Height (Inches): 11.00 Weight (Pounds): 196 General Appearance: no apparent distress Cardiovascular: tachycardia Respiratory/Chest: decreased breath sounds Abdomen: distended Objective No change Adal Kenney MD May 07, 2020 13:08
[2020-05-07] MEDS: cefTRIAXone 1 GM in D5W 55 ML IVPB SCH (14:26)
--- NOTE | 2020-05-07 15:36 | Pulmonology Progress Note ---
Subjective ROS Limited/Unobtainable: Yes Interval Events: None new Constitutional: Reports: fever, other - Wx=435.8 HEENT: Repors: no symptoms Respiratory: Reports: dry cough, shortness of breath Cardiovascular: Reports: no symptoms Allergies: Coded Allergies: No Known Allergies (Unverified , 05/01/20) Objective Last 24 Hour Vital Signs Date Time Temp Pulse Resp B/P (MAP) Pulse Ox O2 Delivery O2 Flow Rate FiO2 05/07/20 12:00 98.2 93 22 114/67 (83) 95 05/07/20 09:00 Nasal Cannula 2.0 05/07/20 08:00 98.2 97 20 120/75 (90) 97 05/07/20 04:00 98.4 91 21 125/75 (92) 96 05/07/20 00:41 99.7 05/07/20 00:41 99.4 05/07/20 00:00 100.8 105 22 127/80 (96) 97 05/06/20 21:00 Nasal Cannula 2.0 05/06/20 20:00 98.2 71 19 146/75 (98) 98 Intake and Output 05/06/20 05/07/20 19:00 07:00 Intake Total 1375 ml 600 ml Output Total 1000 ml Balance 1375 ml -400 ml Free Water 300 ml IV Total 835 ml 600 ml Tube Feeding 240 ml Output Urine Total 1000 ml # Voids 1 # Bowel Movements 1 General Appearance: no acute distress HEENT: normocephalic Respiratory: chest wall non-tender, lungs clear Cardiovascular: normal peripheral pulses, normal rate Abdomen: normal bowel sounds Current Medications Medications (Trade) Dose Ordered Sig/Negro Route PRN Reason Start Time Stop Time Status Last Admin Dose Admin Acetaminophen (Tylenol) 650 mg Q6H PRN GT Temp >100.5 05/04/20 21:00 06/01/20 20:59 05/07/20 00:11 Allopurinol (Zyloprim) 100 mg DAILY GT 05/05/20 09:00 06/02/20 10:59 05/07/20 09:01 Aspirin (ASA) 81 mg DAILY GT 05/05/20 09:00 06/17/20 08:59 05/07/20 09:01 Ceftriaxone Sodium 1 gm/ Dextrose 55 ml @ 110 mls/hr Q24H IVPB 05/05/20 15:00 05/09/20 14:59 05/07/20 14:26 Docusate Sodium (Colace) 100 mg THREE TIMES A DAY GT 05/04/20 18:00 06/01/20 12:59 05/07/20 12:32 Doxycycline Monohydrate (Doxycycline Monohydrate) 100 mg EVERY 12 HOURS GT 05/04/20 21:00 05/11/20 20:59 05/07/20 09:01 Famotidine (Pepcid) 20 mg BID GT 05/04/20 18:00 07/31/20 17:59 05/07/20 09:01 Hydralazine HCl (Apresoline) 25 mg Q4H PRN GT BP over 160 systolic 05/04/20 17:00 07/31/20 16:59 Levetiracetam (Keppra) 500 mg Q12HR GT 05/04/20 21:00 06/16/20 10:59 05/07/20 09:01 Sodium Chloride 1,000 ml @ 75 mls/hr [id number] IV 05/06/20 00:15 06/05/20 00:14 05/07/20 02:30 Tramadol HCl (Ultram) 50 mg Q6H PRN GT For Pain 05/04/20 16:45 05/09/20 10:44 Assessment/Plan Assessment/Plan IMPRESSION: 1. COVID-19 pneumonia. 2. Normoxemia. 3. Metabolic encephalopathy. 4. Seizure disorder. DISCUSSION: I have reviewed his x-ray and there are bilateral infiltrates. He has COVID-19 pneumonia. He has received steroids and Lovenox. 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 agree with discharge plans Fritz Rebolledo Omar Syed MD May 07, 2020 15:36
[2020-05-07 16:00] VITALS: BP 116/76
--- NOTE | 2020-05-07 17:03 | NUR ---
CASE MANAGEMENT:REVIEW SI;COVID PNA. SEPSIS. AC METABOLIC ENCEPHALOPATHY. 100.8 105 22 125/75 95% 2L NC IS;IVF NS @ 75 ML/HR ROCEPHIN IV Q24 ASA GT QD DOXYCYCLINE GT Q12 KEPPRA GT Q12 MED SURG STATUS DCP; FROM [facility]
--- NOTE | 2020-05-07 17:47 | NUR ---
NURSE NOTES: D/C O2 per Dr. Narayan. Orders noted and carried out.
--- NOTE | 2020-05-07 19:18 | NUR ---
NURSE NOTES: Received patient in bed, non verbal, withdraws to pain, patient is on room air with sat 92%, on gtube feeding Jevity 1.2 continuously, tolerating well. IV site is clean dry and intact, no acute distress noted. Call light is within reach, bed is lowered, locked, alarm is on, will continue to monitor for comfort and safety.
--- NOTE | 2020-05-07 19:22 | NUR ---
NURSE HAND-OFF: Important Events on Shift:O2 discontinued, sats 91-92% on room air Patient Status: Stable Diet: Jevity 1.2 Pending Orders: None Pending Results/Labs:Labs in AM ordered Pending MD notification: None Latest Vital Signs: Temperature 98.6 , Pulse 91 , B/P 116 /76 , Respiratory Rate 20 , O2 SAT 97 , Nasal Cannula, O2 Flow Rate 2.0 . Vital Sign Comment: Latest Bergman Fall Score: 55 Fall Risk: High Risk Safety Measures: Call light Within Reach, Bed Alarm Zone 1, Side Rails Side Rails x3, Bed position Low and Locked. Fall Precautions: Yellow Socks Yellow Gown Report given to Bhakti TAVARES.
[2020-05-07 20:00] VITALS: BP 98/58
--- NOTE | 2020-05-07 22:20 | General Progress Note ---
Assessment/Plan Problem List: (1) Seizure ICD Codes: R56.9 - Unspecified convulsions; J12.89 - Other viral pneumonia SNOMED: 39960906, 192455475 (2) Sepsis ICD Codes: A41.9 - Sepsis, unspecified organism SNOMED: 73370534, 928698705 Qualifiers: Qualified Codes: A41.9 - Sepsis, unspecified organism (3) SHERRIE (acute kidney injury) ICD Codes: N17.9 - Acute kidney failure, unspecified SNOMED: 62470383, 9589364 (4) Pneumonia due to COVID-19 virus ICD Codes: U07.1 - COVID-19; J12.89 - Other viral pneumonia SNOMED: 337278502, 065897869 (5) Anemia ICD Codes: D64.9 - Anemia, unspecified SNOMED: 671129051 (6) Acute metabolic encephalopathy ICD Codes: G93.41 - Metabolic encephalopathy; J12.89 - Other viral pneumonia SNOMED: 22368956, 202200282 Status: progressing Assessment/Plan: covid positive pna dehydration needs fluids prn supportive rx prn oxygen if needed Subjective ROS Limited/Unobtainable: Yes Allergies: Coded Allergies: No Known Allergies (Unverified , 05/01/20) Objective Last 24 Hour Vital Signs Date Time Temp Pulse Resp B/P (MAP) Pulse Ox O2 Delivery O2 Flow Rate FiO2 05/07/20 21:42 99.0 05/07/20 21:05 Nasal Cannula 2.0 05/07/20 20:00 99.0 107 28 98/58 (71) 92 05/07/20 16:00 98.6 91 20 116/76 (89) 97 05/07/20 12:00 98.2 93 22 114/67 (83) 95 05/07/20 09:00 Nasal Cannula 2.0 05/07/20 08:00 98.2 97 20 120/75 (90) 97 05/07/20 04:00 98.4 91 21 125/75 (92) 96 05/07/20 00:41 99.4 05/07/20 00:00 100.8 105 22 127/80 (96) 97 Intake and Output 05/06/20 05/07/20 19:00 07:00 Intake Total 1375 ml 695 ml Output Total 1000 ml Balance 1375 ml -305 ml Free Water 300 ml IV Total 835 ml 675 ml Tube Feeding 240 ml 20 ml Output Urine Total 1000 ml # Voids 1 # Bowel Movements 1 Height (Feet): 5 Height (Inches): 11.00 Weight (Pounds): 196 Juan J Navarro MD May 07, 2020 22:20
--- NOTE | 2020-05-07 23:27 | NUR ---
HAND-OFF: Report given to Renita TAVARES.
[2020-05-08] VITALS: BP 121/69
--- NOTE | 2020-05-08 03:20 | Cardiology Progress Note ---
Subjective DATE OF SERVICE: May 07, 2020 Improving heart rates. Hypoxic requiring low flow O2 supplementation by NC Objective Last 24 Hour Vital Signs Date Time Temp Pulse Resp B/P (MAP) Pulse Ox O2 Delivery O2 Flow Rate FiO2 05/08/20 00:00 98.9 90 24 121/69 (86) 92 05/07/20 21:42 99.0 05/07/20 21:05 Nasal Cannula 2.0 05/07/20 20:00 99.0 107 28 98/58 (71) 92 05/07/20 16:00 98.6 91 20 116/76 (89) 97 05/07/20 12:00 98.2 93 22 114/67 (83) 95 05/07/20 09:00 Nasal Cannula 2.0 05/07/20 08:00 98.2 97 20 120/75 (90) 97 05/07/20 04:00 98.4 91 21 125/75 (92) 96 LUNGS: bilateral rhonchi CARDIAC: normal S1 and S2, tachycardia ABDOMEN: normal bowel sounds, non tender, soft, no organomegaly EXTREMITIES: no calf tenderness, No edema Assessment/Plan Assessment/Plan COVID19 PNA Sinus tachycardia Hypoxia Decreasing BNP; no clinical signs of CHF Mild protein calorie malnutrition Dehydration/hypernatremia Hypotonic IVF Antiviral rx Anti-coagulation steroids per pulmonary Chavez Jose MD May 08, 2020 03:20
[2020-05-08 04:00] VITALS: BP 118/74
[2020-05-08 07:22] LABS: BASOPHILS % (AUTO) 1.4 % (0.0-2.0); EOSINOPHILS % (AUTO) 0.2 % (0.0-3.0); HEMATOCRIT 32.9 % (42.0-52.0); HEMOGLOBIN 10.1 G/DL (14.2-18.0); LYMPHOCYTES % (AUTO) 35.2 % (20.0-45.0); MEAN CORPUSCULAR VOLUME 88 FL (80-99); MONOCYTES % (AUTO) 8.6 % (1.0-10.0); NEUTROPHILS % (AUTO) 54.6 % (45.0-75.0); PLATELET COUNT 205 K/UL (150-450); RED BLOOD COUNT 3.72 M/UL (4.70-6.10); RED CELL DISTRIBUTION WIDTH 13.4 % (11.6-14.8); WHITE BLOOD COUNT 3.8 K/UL (4.8-10.8)
--- NOTE | 2020-05-08 07:36 | NUR ---
HAND-OFF: Report given to ANUSHA Camarena.
[2020-05-08 07:38] LABS: ALANINE AMINOTRANSFERASE 75 U/L (12-78); ALBUMIN 2.4 G/DL (3.4-5.0); ALBUMIN/GLOBULIN RATIO 0.4 (1.0-2.7); ALKALINE PHOSPHATASE 84 U/L (46-116); ANION GAP 9 mmol/L (5-15); ASPARTATE AMINO TRANSFERASE 69 U/L (15-37); BILIRUBIN,TOTAL 0.5 MG/DL (0.2-1.0); BLOOD UREA NITROGEN 39 mg/dL (7-18); CALCIUM 8.5 MG/DL (8.5-10.1); CARBON DIOXIDE 27 MMOL/L (21-32); CHLORIDE 109 MMOL/L (98-107); CREATININE 1.6 MG/DL (0.55-1.30); PHOSPHORUS 2.7 MG/DL (2.5-4.9); POTASSIUM 3.5 MMOL/L (3.5-5.1); SODIUM 145 MMOL/L (136-145)
[2020-05-08 08:00] VITALS: BP 136/78
[2020-05-08] MEDS: Aspirin Baby 81mg GT SCH (08:36)
[2020-05-08] MEDS: levETIRAcetam 500mg/5ml Liquid GT SCH ×2 (08:37→20:28)
[2020-05-08] MEDS: Allopurinol 100mg Tab GT SCH (08:37)
[2020-05-08] MEDS: Doxycycline Monohydrate 100mg GT SCH (08:37)
[2020-05-08] MEDS: Docusate 100mg/10ml Liq GT SCH ×3 (08:37→18:23)
--- NOTE | 2020-05-08 10:02 | Infectious Diseases Prog Note ---
Assessment/Plan Assessment/Plan IMPRESSION: 1. Sepsis with fever, and tachycardia. 2. COVID-19 disease, mild 3. Pressure ulcers. 4. Status post CVA with aphasia. 5. G-tube status. 6. COPD. 7. Hypertension. 8. Seizure disorder. 9. Anemia. 10. Acute renal failure. 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 RECOMMENDATION: Discontinue with ceftriaxone & Doxycycline Check pulse oximetry in room air Case was D/W RN Subjective ROS Limited/Unobtainable: Yes Constitutional: Denies: fever Allergies: Coded Allergies: No Known Allergies (Unverified , 05/01/20) Objective Last 24 Hour Vital Signs Date Time Temp Pulse Resp B/P (MAP) Pulse Ox O2 Delivery O2 Flow Rate FiO2 05/08/20 08:00 98.4 89 20 136/78 (97) 92 05/08/20 04:00 98.6 86 24 118/74 (89) 92 05/08/20 00:00 98.9 90 24 121/69 (86) 92 05/07/20 21:42 99.0 05/07/20 21:05 Nasal Cannula 2.0 05/07/20 20:00 99.0 107 28 98/58 (71) 92 05/07/20 16:00 98.6 91 20 116/76 (89) 97 05/07/20 12:00 98.2 93 22 114/67 (83) 95 Height (Feet): 5 Height (Inches): 11.00 Weight (Pounds): 192 HEENT: mucous membranes moist Respiratory/Chest: other - oxygen by nasal cannula Cardiovascular: normal rate Abdomen: soft, non tender, other - GT feeding Extremities: no edema Neurologic/Psychiatric: aphasia Laboratory Tests Test 05/08/20 04:00 White Blood Count 3.8 K/UL (4.8-10.8) L Red Blood Count 3.72 M/UL (4.70-6.10) L Hemoglobin 10.1 G/DL (14.2-18.0) L Hematocrit 32.9 % (42.0-52.0) L Mean Corpuscular Volume 88 FL (80-99) Mean Corpuscular Hemoglobin 27.1 PG (27.0-31.0) Mean Corpuscular Hemoglobin Concent 30.7 G/DL (32.0-36.0) L Red Cell Distribution Width 13.4 % (11.6-14.8) Platelet Count 205 K/UL (150-450) Mean Platelet Volume 8.2 FL (6.5-10.1) Neutrophils (%) (Auto) 54.6 % (45.0-75.0) Lymphocytes (%) (Auto) 35.2 % (20.0-45.0) Monocytes (%) (Auto) 8.6 % (1.0-10.0) Eosinophils (%) (Auto) 0.2 % (0.0-3.0) Basophils (%) (Auto) 1.4 % (0.0-2.0) Sodium Level 145 MMOL/L (136-145) Potassium Level 3.5 MMOL/L (3.5-5.1) Chloride Level 109 MMOL/L (98-107) H Carbon Dioxide Level 27 MMOL/L (21-32) Anion Gap 9 mmol/L (5-15) Blood Urea Nitrogen 39 mg/dL (7-18) H Creatinine 1.6 MG/DL (0.55-1.30) H Estimat Glomerular Filtration Rate 44.0 mL/min (>60) Glucose Level 90 MG/DL (74-106) Calcium Level 8.5 MG/DL (8.5-10.1) Phosphorus Level 2.7 MG/DL (2.5-4.9) Magnesium Level 2.2 MG/DL (1.8-2.4) Total Bilirubin 0.5 MG/DL (0.2-1.0) Aspartate Amino Transf (AST/SGOT) 69 U/L (15-37) H Alanine Aminotransferase (ALT/SGPT) 75 U/L (12-78) Alkaline Phosphatase 84 U/L (46-116) C-Reactive Protein, Quantitative 1.5 mg/dL (0.00-0.90) H Pro-B-Type Natriuretic Peptide 63 pg/mL (0-125) Total Protein 8.2 G/DL (6.4-8.2) Albumin 2.4 G/DL (3.4-5.0) L Globulin 5.8 g/dL Albumin/Globulin Ratio 0.4 (1.0-2.7) L Current Medications Medications (Trade) Dose Ordered Sig/Negro Route PRN Reason Start Time Stop Time Status Last Admin Dose Admin Acetaminophen (Tylenol) 650 mg Q6H PRN GT Temp >100.5 05/04/20 21:00 06/01/20 20:59 05/07/20 20:44 Allopurinol (Zyloprim) 100 mg DAILY GT 05/05/20 09:00 06/02/20 10:59 05/08/20 08:37 Aspirin (ASA) 81 mg DAILY GT 05/05/20 09:00 06/17/20 08:59 05/08/20 08:36 Ceftriaxone Sodium 1 gm/ Dextrose 55 ml @ 110 mls/hr Q24H IVPB 05/05/20 15:00 05/09/20 14:59 05/07/20 14:26 Docusate Sodium (Colace) 100 mg THREE TIMES A DAY GT 05/04/20 18:00 06/01/20 12:59 05/08/20 08:37 Doxycycline Monohydrate (Doxycycline Monohydrate) 100 mg EVERY 12 HOURS GT 05/04/20 21:00 05/11/20 20:59 05/08/20 08:37 Famotidine (Pepcid) 20 mg BID GT 05/04/20 18:00 07/31/20 17:59 05/08/20 08:37 Hydralazine HCl (Apresoline) 25 mg Q4H PRN GT BP over 160 systolic 05/04/20 17:00 07/31/20 16:59 Levetiracetam (Keppra) 500 mg Q12HR GT 05/04/20 21:00 06/16/20 10:59 05/08/20 08:37 Sodium Chloride 1,000 ml @ 75 mls/hr [id number] IV 05/06/20 00:15 06/05/20 00:14 05/08/20 04:00 Tramadol HCl (Ultram) 50 mg Q6H PRN GT For Pain 05/04/20 16:45 05/09/20 10:44 Otoniel Narayan MD May 08, 2020 10:02
--- NOTE | 2020-05-08 10:11 | Pulmonology Progress Note ---
Subjective ROS Limited/Unobtainable: Yes Interval Events: None new Constitutional: Denies: fever HEENT: Repors: no symptoms Respiratory: Reports: dry cough, shortness of breath Cardiovascular: Reports: no symptoms Allergies: Coded Allergies: No Known Allergies (Unverified , 05/01/20) Objective Last 24 Hour Vital Signs Date Time Temp Pulse Resp B/P (MAP) Pulse Ox O2 Delivery O2 Flow Rate FiO2 05/08/20 08:00 98.4 89 20 136/78 (97) 92 05/08/20 04:00 98.6 86 24 118/74 (89) 92 05/08/20 00:00 98.9 90 24 121/69 (86) 92 05/07/20 21:42 99.0 05/07/20 21:05 Nasal Cannula 2.0 05/07/20 20:00 99.0 107 28 98/58 (71) 92 05/07/20 16:00 98.6 91 20 116/76 (89) 97 05/07/20 12:00 98.2 93 22 114/67 (83) 95 Intake and Output 05/07/20 05/08/20 19:00 07:00 Intake Total 900 ml 495 ml Output Total 800 ml 450 ml Balance 100 ml 45 ml IV Total 660 ml 375 ml Tube Feeding 240 ml 120 ml Output Urine Total 800 ml 450 ml # Voids 1 General Appearance: no acute distress HEENT: normocephalic Respiratory: chest wall non-tender, lungs clear Cardiovascular: normal peripheral pulses, normal rate Abdomen: normal bowel sounds Laboratory Tests 05/08/20 04:00: White Blood Count 3.8L, Red Blood Count 3.72L, Hemoglobin 10.1L, Hematocrit 32.9L, Mean Corpuscular Volume 88, Mean Corpuscular Hemoglobin 27.1, Mean Corpuscular Hemoglobin Concent 30.7L, Red Cell Distribution Width 13.4, Platelet Count 205, Mean Platelet Volume 8.2, Neutrophils (%) (Auto) 54.6, Lymphocytes (%) (Auto) 35.2, Monocytes (%) (Auto) 8.6, Eosinophils (%) (Auto) 0.2, Basophils (%) (Auto) 1.4, Sodium Level 145, Potassium Level 3.5, Chloride Level 109H, Carbon Dioxide Level 27, Anion Gap 9, Blood Urea Nitrogen 39H, Creatinine 1.6H, Estimat Glomerular Filtration Rate 44.0, Glucose Level 90, Calcium Level 8.5, Phosphorus Level 2.7, Magnesium Level 2.2, Total Bilirubin 0.5, Aspartate Amino Transf (AST/SGOT) 69H, Alanine Aminotransferase (ALT/SGPT) 75, Alkaline Phosphatase 84, C-Reactive Protein, Quantitative 1.5H, Pro-B-Type Natriuretic Peptide 63, Total Protein 8.2, Albumin 2.4L, Globulin 5.8, Albumin/ Globulin Ratio 0.4L Current Medications Medications (Trade) Dose Ordered Sig/Negro Route PRN Reason Start Time Stop Time Status Last Admin Dose Admin Acetaminophen (Tylenol) 650 mg Q6H PRN GT Temp >100.5 05/04/20 21:00 06/01/20 20:59 05/07/20 20:44 Allopurinol (Zyloprim) 100 mg DAILY GT 05/05/20 09:00 06/02/20 10:59 05/08/20 08:37 Aspirin (ASA) 81 mg DAILY GT 05/05/20 09:00 06/17/20 08:59 05/08/20 08:36 Docusate Sodium (Colace) 100 mg THREE TIMES A DAY GT 05/04/20 18:00 06/01/20 12:59 05/08/20 08:37 Famotidine (Pepcid) 20 mg BID GT 05/04/20 18:00 07/31/20 17:59 05/08/20 08:37 Hydralazine HCl (Apresoline) 25 mg Q4H PRN GT BP over 160 systolic 05/04/20 17:00 07/31/20 16:59 Levetiracetam (Keppra) 500 mg Q12HR GT 05/04/20 21:00 06/16/20 10:59 05/08/20 08:37 Sodium Chloride 1,000 ml @ 75 mls/hr [id number] IV 05/06/20 00:15 06/05/20 00:14 05/08/20 04:00 Tramadol HCl (Ultram) 50 mg Q6H PRN GT For Pain 05/04/20 16:45 05/09/20 10:44 Assessment/Plan Assessment/Plan IMPRESSION: 1. COVID-19 pneumonia. 2. Normoxemia. 3. Metabolic encephalopathy. 4. Seizure disorder. DISCUSSION: I have reviewed his x-ray and there are bilateral infiltrates. He has COVID-19 pneumonia. He has received steroids and Lovenox. 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 agree with discharge plans Yoseph Khoury M.D. Yoseph Khoury MD May 08, 2020 10:11
--- NOTE | 2020-05-08 10:25 | NUR ---
RD ASSESSMENT & RECOMMENDATIONS SEE CARE ACTIVITY FOR COMPLETE ASSESSMENT DAILY ESTIMATED NEEDS: Needs based on Pulmonary, wound 80.5kg abw 23-28 kcals/kg [id number] total kcals 1.25-1.5 g protein/kg 101-121 g total protein 25-30 mL/kg 4515-7342 total fluid mLs NUTRITION DIAGNOSIS: Swallowing difficulty r/t dysphagia as evidenced by Pt is GT dep. CURRENT TF: Jevity 1.2 @20 ENTERAL NUTRITION RECOMMENDATIONS: Jevity 1.2 @ 65ml/hr x 24 hrs + Prosource 1pkt BID to provide 1560ml, 1872kcal, 86g + 22g prot, 1255ml free water - Increase goal rate to 65ml/hr x 24 hrs -> advance 15ml/hr q 4-6 hrs as tolerated to goal rate - HOB over 30 degrees/ water flush of 250ml q 8 hrs W/ continue Glucerna 1.2 @ 65ml/hr x24 hrs + Prosource 1pkt daily to provide 1560ml, 1872kcal, 86g + 22g prot, 1255ml free water ADDITIONAL RECOMMENDATIONS: 1) Maintain calibrated bed scale wts 2) Monitor BGs, need for carb controlled TF -> Decadron now dc'ed, BGs wnl 3) Check lytes, replete as needed (wnl) 4) Wound Care: Moiz BID via PEG .
[2020-05-08 12:00] VITALS: BP 132/75
--- NOTE | 2020-05-08 12:47 | Nephrology Progress Note ---
Assessment/Plan Problem List: (1) SHERRIE (acute kidney injury) (2) Pneumonia due to COVID-19 virus (3) Sepsis (4) Acute metabolic encephalopathy (5) Seizure (6) Anemia Assessment Acute renal failure. Patient presents with serum creatinine of 1.6. Underlying chronic renal insufficiency. Serum creatinine 1.4 after hydration. Pneumonia due to COVID-19 virus Acute metabolic encephalopathy Seizures Sepsis Nonverbal, with GT feeding Anemia Plan May 08: Serum creatinine rhiannon to 1.6. Continue to monitor renal parameters. Continue per consultants advice. May 07: No labs done today. Check labs tomorrow May 06: No labs drawn today. Continue per consultants. May 05: Labs reviewed. Creatinine 1.4. Stable from renal standpoint of view. Continue per consultants. Previously: No labs drawn today. Will check renal parameters tomorrow. Stable from renal standpoint of view. Per ID Monitor renal parameters Albumin bolus Per orders Subjective ROS Limited/Unobtainable: No Constitutional: Reports: malaise, weakness Objective Objective Last 24 Hour Vital Signs Date Time Temp Pulse Resp B/P (MAP) Pulse Ox O2 Delivery O2 Flow Rate FiO2 05/08/20 09:00 Nasal Cannula 2.0 05/08/20 08:00 98.4 89 20 136/78 (97) 92 05/08/20 04:00 98.6 86 24 118/74 (89) 92 05/08/20 00:00 98.9 90 24 121/69 (86) 92 05/07/20 21:42 99.0 05/07/20 21:05 Nasal Cannula 2.0 05/07/20 20:00 99.0 107 28 98/58 (71) 92 05/07/20 16:00 98.6 91 20 116/76 (89) 97 Intake and Output 05/07/20 05/08/20 19:00 07:00 Intake Total 900 ml 495 ml Output Total 800 ml 450 ml Balance 100 ml 45 ml IV Total 660 ml 375 ml Tube Feeding 240 ml 120 ml Output Urine Total 800 ml 450 ml # Voids 1 Laboratory Tests 05/08/20 04:00: White Blood Count 3.8L, Red Blood Count 3.72L, Hemoglobin 10.1L, Hematocrit 32.9L, Mean Corpuscular Volume 88, Mean Corpuscular Hemoglobin 27.1, Mean Corpuscular Hemoglobin Concent 30.7L, Red Cell Distribution Width 13.4, Platelet Count 205, Mean Platelet Volume 8.2, Neutrophils (%) (Auto) 54.6, Lymphocytes (%) (Auto) 35.2, Monocytes (%) (Auto) 8.6, Eosinophils (%) (Auto) 0.2, Basophils (%) (Auto) 1.4, Sodium Level 145, Potassium Level 3.5, Chloride Level 109H, Carbon Dioxide Level 27, Anion Gap 9, Blood Urea Nitrogen 39H, Creatinine 1.6H, Estimat Glomerular Filtration Rate 44.0, Glucose Level 90, Calcium Level 8.5, Phosphorus Level 2.7, Magnesium Level 2.2, Total Bilirubin 0.5, Aspartate Amino Transf (AST/SGOT) 69H, Alanine Aminotransferase (ALT/SGPT) 75, Alkaline Phosphatase 84, C-Reactive Protein, Quantitative 1.5H, Pro-B-Type Natriuretic Peptide 63, Total Protein 8.2, Albumin 2.4L, Globulin 5.8, Albumin/ Globulin Ratio 0.4L Height (Feet): 5 Height (Inches): 11.00 Weight (Pounds): 192 General Appearance: no apparent distress, lethargic Cardiovascular: tachycardia - Rate 80-90 Respiratory/Chest: decreased breath sounds Abdomen: distended Objective No change Adal Kenney MD May 08, 2020 12:47
--- NOTE | 2020-05-08 14:19 | General Progress Note ---
Assessment/Plan Problem List: (1) Seizure ICD Codes: R56.9 - Unspecified convulsions; J12.89 - Other viral pneumonia SNOMED: 65533069, 786773165 (2) Sepsis ICD Codes: A41.9 - Sepsis, unspecified organism SNOMED: 09183834, 144504464 Qualifiers: Qualified Codes: A41.9 - Sepsis, unspecified organism (3) SHERRIE (acute kidney injury) ICD Codes: N17.9 - Acute kidney failure, unspecified SNOMED: 47157736, 7906088 (4) Pneumonia due to COVID-19 virus ICD Codes: U07.1 - COVID-19; J12.89 - Other viral pneumonia SNOMED: 241922495, 748634825 (5) Anemia ICD Codes: D64.9 - Anemia, unspecified SNOMED: 453282754 (6) Acute metabolic encephalopathy ICD Codes: G93.41 - Metabolic encephalopathy; J12.89 - Other viral pneumonia SNOMED: 58906135, 691559155 Status: progressing Assessment/Plan: covid positive pna seizure encephalopathy prn supportive rx resp insuff dc planning Subjective ROS Limited/Unobtainable: Yes Allergies: Coded Allergies: No Known Allergies (Unverified , 05/01/20) Objective Last 24 Hour Vital Signs Date Time Temp Pulse Resp B/P (MAP) Pulse Ox O2 Delivery O2 Flow Rate FiO2 05/08/20 12:00 98.6 80 20 132/75 (94) 95 05/08/20 09:00 Nasal Cannula 2.0 05/08/20 08:00 98.4 89 20 136/78 (97) 92 05/08/20 04:00 98.6 86 24 118/74 (89) 92 05/08/20 00:00 98.9 90 24 121/69 (86) 92 05/07/20 21:42 99.0 05/07/20 21:05 Nasal Cannula 2.0 05/07/20 20:00 99.0 107 28 98/58 (71) 92 05/07/20 16:00 98.6 91 20 116/76 (89) 97 Intake and Output 05/07/20 05/08/20 19:00 07:00 Intake Total 900 ml 495 ml Output Total 800 ml 450 ml Balance 100 ml 45 ml IV Total 660 ml 375 ml Tube Feeding 240 ml 120 ml Output Urine Total 800 ml 450 ml # Voids 1 Laboratory Tests 05/08/20 04:00: White Blood Count 3.8L, Red Blood Count 3.72L, Hemoglobin 10.1L, Hematocrit 32.9L, Mean Corpuscular Volume 88, Mean Corpuscular Hemoglobin 27.1, Mean Corpuscular Hemoglobin Concent 30.7L, Red Cell Distribution Width 13.4, Platelet Count 205, Mean Platelet Volume 8.2, Neutrophils (%) (Auto) 54.6, Lymphocytes (%) (Auto) 35.2, Monocytes (%) (Auto) 8.6, Eosinophils (%) (Auto) 0.2, Basophils (%) (Auto) 1.4, Sodium Level 145, Potassium Level 3.5, Chloride Level 109H, Carbon Dioxide Level 27, Anion Gap 9, Blood Urea Nitrogen 39H, Creatinine 1.6H, Estimat Glomerular Filtration Rate 44.0, Glucose Level 90, Calcium Level 8.5, Phosphorus Level 2.7, Magnesium Level 2.2, Total Bilirubin 0.5, Aspartate Amino Transf (AST/SGOT) 69H, Alanine Aminotransferase (ALT/SGPT) 75, Alkaline Phosphatase 84, C-Reactive Protein, Quantitative 1.5H, Pro-B-Type Natriuretic Peptide 63, Total Protein 8.2, Albumin 2.4L, Globulin 5.8, Albumin/ Globulin Ratio 0.4L Height (Feet): 5 Height (Inches): 11.00 Weight (Pounds): 192 Juan J Navarro MD May 08, 2020 14:19
[2020-05-08 16:00] VITALS: BP 125/69
--- NOTE | 2020-05-08 18:35 | NUR ---
NURSE NOTES: Patient continues tolerating g-tube feedings,turned and postion.HOB is elevated.Gonzales catheter remains in place.Bed alarm on.
--- NOTE | 2020-05-08 19:20 | NUR ---
HAND-OFF: Report given to Latesha RN,aware of fall risk,aspiration precaution..
[2020-05-08 20:00] VITALS: BP 129/75
--- NOTE | 2020-05-08 20:00 | NUR ---
NURSE NOTES: Patient received in bed, awake, nonverbal. IV is intact and patent. FC draining. GT tolerating feeding, no residual noted. On o2 via NC, no SOB at this time. Will continue to monitor.
--- NOTE | 2020-05-08 20:14 | NUR ---
NURSE HAND-OFF: Important Events on Shift: N] Patient Status: [] Diet: []G-tube feedings Pending Orders: [] Pending Results/Labs:[] Pending MD notification:[] Latest Vital Signs: Temperature 98.7 , Pulse 82 , B/P 125 /69 , Respiratory Rate 18 , O2 SAT 95 , Nasal Cannula, O2 Flow Rate 2.0 . Vital Sign Comment: [] Latest Bergman Fall Score: 55 Fall Risk: High Risk Safety Measures: Call light Within Reach, Bed Alarm Zone 1, Side Rails Side Rails x3, Bed position Low and Locked. Fall Precautions: Yellow Socks Yellow Gown Report given to [].
--- NOTE | 2020-05-08 20:30 | NUR ---
NURSE NOTES: Accidentally closed pyxis door without taking keppra. Keppra was not dispensed the first time. Pyxis showed keppra was dispensed twice, but only 1 unit dose of keppra 500mg was taken from pyxis and 1 unit dose is only given.
[2020-05-08] MEDS: Acetaminophen 650mg/20.3ml GT PRN (21:13)
[2020-05-09 00:08] VITALS: BP 132/71
--- NOTE | 2020-05-09 01:40 | NUR ---
NURSE NOTES: Attempted to place patient on room air. Within 5 minutes in room air, patient's oxygen saturation dropped from 95%-89%. Patient is placed back on o2 via NC at 2lpm, and o2 sat returned to 94%.
[2020-05-09 04:00] VITALS: BP 103/73
--- NOTE | 2020-05-09 04:30 | NUR ---
NURSE NOTES: Dressing change on sacrum, left ear, and bilateral toes.
[2020-05-09 07:32] LABS: BASOPHILS % (AUTO) 0.9 % (0.0-2.0); EOSINOPHILS % (AUTO) 1.3 % (0.0-3.0); HEMATOCRIT 29.3 % (42.0-52.0); HEMOGLOBIN 9.2 G/DL (14.2-18.0); LYMPHOCYTES % (AUTO) 40.6 % (20.0-45.0); MEAN CORPUSCULAR VOLUME 88 FL (80-99); MONOCYTES % (AUTO) 9.5 % (1.0-10.0); NEUTROPHILS % (AUTO) 47.6 % (45.0-75.0); PLATELET COUNT 200 K/UL (150-450); RED BLOOD COUNT 3.35 M/UL (4.70-6.10); RED CELL DISTRIBUTION WIDTH 13.2 % (11.6-14.8); WHITE BLOOD COUNT 3.8 K/UL (4.8-10.8)
[2020-05-09 07:36] LABS: ALANINE AMINOTRANSFERASE 60 U/L (12-78); ALBUMIN 2.3 G/DL (3.4-5.0); ALBUMIN/GLOBULIN RATIO 0.4 (1.0-2.7); ALKALINE PHOSPHATASE 86 U/L (46-116); ANION GAP 8 mmol/L (5-15); ASPARTATE AMINO TRANSFERASE 53 U/L (15-37); BILIRUBIN,TOTAL 0.5 MG/DL (0.2-1.0); BLOOD UREA NITROGEN 31 mg/dL (7-18); CALCIUM 8.1 MG/DL (8.5-10.1); CARBON DIOXIDE 27 MMOL/L (21-32); CHLORIDE 108 MMOL/L (98-107); CREATININE 1.3 MG/DL (0.55-1.30); PHOSPHORUS 2.9 MG/DL (2.5-4.9); POTASSIUM 3.4 MMOL/L (3.5-5.1); SODIUM 143 MMOL/L (136-145)
--- NOTE | 2020-05-09 07:37 | NUR ---
NURSE HAND-OFF: Important Events on Shift:[uneventful. No BM, unable to place patient in room air. desaturates] Patient Status: [stable] Diet: [JEvity 1.2 @ 20cc/hr] Pending Orders: [n/a] Pending Results/Labs:[see chart] Pending MD notification:[n/a] Latest Vital Signs: Temperature 97.2 , Pulse 80 , B/P 103 /73 , Respiratory Rate 20 , O2 SAT 95 , Nasal Cannula, O2 Flow Rate 2.0 . Vital Sign Comment: [stable] Latest Bergman Fall Score: 50 Fall Risk: High Risk Safety Measures: Call light Within Reach, Bed Alarm Zone 1, Side Rails Side Rails x3, Bed position Low and Locked. Fall Precautions: Yellow Socks Yellow Gown Report given to [Hedy TAVARES].
--- NOTE | 2020-05-09 07:50 | NUR ---
NURSE NOTES: received report from ANUSHA Charlton. patient in bed. sleeping. no respiratory distress on 2L via NC. no facial grimacing. GTF running at 20/hr. IV on lac running 1/2ns@75/hr. p200 mattress for skin management. contact and droplet isolation d Addendum: 05/09/20 at 0754 by BALDO SCOTT RN for positive covid. seizre precaution. side rails are padded. bed in the lowers position and locked.call light within reach. will continue to provide plan of care.
[2020-05-09 08:00] VITALS: BP 131/73
[2020-05-09] MEDS: Aspirin Baby 81mg GT SCH (08:44)
[2020-05-09] MEDS: Docusate 100mg/10ml Liq GT SCH ×3 (08:44→18:32)
[2020-05-09] MEDS: levETIRAcetam 500mg/5ml Liquid GT SCH ×2 (08:44→21:52)
[2020-05-09] MEDS: Allopurinol 100mg Tab GT SCH (08:45)
--- NOTE | 2020-05-09 10:31 | Pulmonology Progress Note ---
Subjective ROS Limited/Unobtainable: Yes Interval Events: None new Constitutional: Denies: fever HEENT: Repors: no symptoms Respiratory: Reports: dry cough, shortness of breath Cardiovascular: Reports: no symptoms Allergies: Coded Allergies: No Known Allergies (Unverified , 05/01/20) Objective Last 24 Hour Vital Signs Date Time Temp Pulse Resp B/P (MAP) Pulse Ox O2 Delivery O2 Flow Rate FiO2 05/09/20 08:00 99.1 83 23 131/73 (92) 98 05/09/20 04:00 97.2 80 20 103/73 (83) 95 05/09/20 00:08 99.7 106 22 132/71 (91) 94 05/08/20 21:43 100.9 05/08/20 21:00 Nasal Cannula 2.0 05/08/20 20:00 100.4 103 20 129/75 (93) 94 05/08/20 16:00 98.7 82 18 125/69 (87) 95 05/08/20 12:00 98.6 80 20 132/75 (94) 95 Intake and Output 05/08/20 05/09/20 19:00 07:00 Intake Total 1165 ml 1065 ml Output Total 700 ml 950 ml Balance 465 ml 115 ml Free Water 100 ml 100 ml IV Total 825 ml 825 ml Tube Feeding 240 ml 140 ml Output Urine Total 700 ml 950 ml # Voids 1 General Appearance: no acute distress HEENT: normocephalic Respiratory: chest wall non-tender, lungs clear Cardiovascular: normal peripheral pulses, normal rate Abdomen: normal bowel sounds Laboratory Tests 05/09/20 03:30: White Blood Count 3.8L, Red Blood Count 3.35L, Hemoglobin 9.2L, Hematocrit 29.3L , Mean Corpuscular Volume 88, Mean Corpuscular Hemoglobin 27.6, Mean Corpuscular Hemoglobin Concent 31.5L, Red Cell Distribution Width 13.2, Platelet Count 200, Mean Platelet Volume 8.2, Neutrophils (%) (Auto) 47.6, Lymphocytes (%) (Auto) 40.6, Monocytes (%) (Auto) 9.5, Eosinophils (%) (Auto) 1.3, Basophils (%) (Auto) 0.9, Sodium Level 143, Potassium Level 3.4L, Chloride Level 108H, Carbon Dioxide Level 27, Anion Gap 8, Blood Urea Nitrogen 31H, Creatinine 1.3, Estimat Glomerular Filtration Rate 55.9, Glucose Level 99, Uric Acid 6.2, Calcium Level 8.1L, Phosphorus Level 2.9, Magnesium Level 2.2, Total Bilirubin 0.5, Aspartate Amino Transf (AST/SGOT) 53H, Alanine Aminotransferase ( ALT/SGPT) 60, Alkaline Phosphatase 86, C-Reactive Protein, Quantitative 3.2H, Pro-B-Type Natriuretic Peptide 119, Total Protein 7.6, Albumin 2.3L, Globulin 5.3, Albumin/Globulin Ratio 0.4L Current Medications Medications (Trade) Dose Ordered Sig/Negro Route PRN Reason Start Time Stop Time Status Last Admin Dose Admin Acetaminophen (Tylenol) 650 mg Q6H PRN GT Temp >100.5 05/04/20 21:00 06/01/20 20:59 05/08/20 21:13 Allopurinol (Zyloprim) 100 mg DAILY GT 05/05/20 09:00 06/02/20 10:59 05/09/20 08:45 Aspirin (ASA) 81 mg DAILY GT 05/05/20 09:00 06/17/20 08:59 05/09/20 08:44 Docusate Sodium (Colace) 100 mg THREE TIMES A DAY GT 05/04/20 18:00 06/01/20 12:59 05/09/20 08:44 Famotidine (Pepcid) 20 mg BID GT 05/04/20 18:00 07/31/20 17:59 05/09/20 08:44 Hydralazine HCl (Apresoline) 25 mg Q4H PRN GT BP over 160 systolic 05/04/20 17:00 07/31/20 16:59 Levetiracetam (Keppra) 500 mg Q12HR GT 05/04/20 21:00 06/16/20 10:59 05/09/20 08:44 Sodium Chloride 1,000 ml @ 75 mls/hr [id number] IV 05/06/20 00:15 06/05/20 00:14 05/09/20 08:15 Tramadol HCl (Ultram) 50 mg Q6H PRN GT For Pain 05/04/20 16:45 05/09/20 10:44 Assessment/Plan Assessment/Plan IMPRESSION: 1. COVID-19 pneumonia. 2. Normoxemia. 3. Metabolic encephalopathy. 4. Seizure disorder. DISCUSSION: I have reviewed his x-ray and there are bilateral infiltrates. He has COVID-19 pneumonia. He has received steroids and Lovenox. 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 agree with discharge plans Yoseph Khoury M.D. Yoseph Khoury MD May 09, 2020 10:31
[2020-05-09 12:00] VITALS: BP 131/73
--- NOTE | 2020-05-09 13:23 | Nephrology Progress Note ---
Assessment/Plan Problem List: (1) SHERRIE (acute kidney injury) (2) Pneumonia due to COVID-19 virus (3) Sepsis (4) Acute metabolic encephalopathy (5) Seizure (6) Anemia Assessment Acute renal failure. Patient presents with serum creatinine of 1.6. Underlying chronic renal insufficiency. Serum creatinine 1.4 after hydration. Pneumonia due to COVID-19 virus Acute metabolic encephalopathy Seizures Sepsis Nonverbal, with GT feeding Anemia Plan May 09: Serum creatinine normalized. Will stop IV fluid. Will supplement potassium chloride 20 M EQ via GT once. Continue per development consultant May 08: Serum creatinine rhiannon to 1.6. Continue to monitor renal parameters. Continue per consultants advice. May 07: No labs done today. Check labs tomorrow May 06: No labs drawn today. Continue per consultants. May 05: Labs reviewed. Creatinine 1.4. Stable from renal standpoint of view. Continue per consultants. Previously: No labs drawn today. Will check renal parameters tomorrow. Stable from renal standpoint of view. Per ID Monitor renal parameters Albumin bolus Per orders Subjective ROS Limited/Unobtainable: Yes Objective Objective Last 24 Hour Vital Signs Date Time Temp Pulse Resp B/P (MAP) Pulse Ox O2 Delivery O2 Flow Rate FiO2 05/09/20 12:00 98.8 83 24 131/73 (92) 95 05/09/20 09:00 Nasal Cannula 2.0 05/09/20 08:00 99.1 83 23 131/73 (92) 98 05/09/20 04:00 97.2 80 20 103/73 (83) 95 05/09/20 00:08 99.7 106 22 132/71 (91) 94 05/08/20 21:43 100.9 05/08/20 21:00 Nasal Cannula 2.0 05/08/20 20:00 100.4 103 20 129/75 (93) 94 05/08/20 16:00 98.7 82 18 125/69 (87) 95 Intake and Output 05/08/20 05/09/20 19:00 07:00 Intake Total 1165 ml 1065 ml Output Total 700 ml 950 ml Balance 465 ml 115 ml Free Water 100 ml 100 ml IV Total 825 ml 825 ml Tube Feeding 240 ml 140 ml Output Urine Total 700 ml 950 ml # Voids 1 Current Medications Medications (Trade) Dose Ordered Sig/Negro Route PRN Reason Start Time Stop Time Status Last Admin Dose Admin Acetaminophen (Tylenol) 650 mg Q6H PRN GT Temp >100.5 05/04/20 21:00 06/01/20 20:59 05/08/20 21:13 Allopurinol (Zyloprim) 100 mg DAILY GT 05/05/20 09:00 06/02/20 10:59 05/09/20 08:45 Aspirin (ASA) 81 mg DAILY GT 05/05/20 09:00 06/17/20 08:59 05/09/20 08:44 Docusate Sodium (Colace) 100 mg THREE TIMES A DAY GT 05/04/20 18:00 06/01/20 12:59 05/09/20 12:46 Famotidine (Pepcid) 20 mg BID GT 05/04/20 18:00 07/31/20 17:59 05/09/20 08:44 Hydralazine HCl (Apresoline) 25 mg Q4H PRN GT BP over 160 systolic 05/04/20 17:00 07/31/20 16:59 Levetiracetam (Keppra) 500 mg Q12HR GT 05/04/20 21:00 06/16/20 10:59 05/09/20 08:44 Sodium Chloride 1,000 ml @ 75 mls/hr [id number] IV 05/06/20 00:15 06/05/20 00:14 05/09/20 08:15 Laboratory Tests 05/09/20 03:30: White Blood Count 3.8L, Red Blood Count 3.35L, Hemoglobin 9.2L, Hematocrit 29.3L , Mean Corpuscular Volume 88, Mean Corpuscular Hemoglobin 27.6, Mean Corpuscular Hemoglobin Concent 31.5L, Red Cell Distribution Width 13.2, Platelet Count 200, Mean Platelet Volume 8.2, Neutrophils (%) (Auto) 47.6, Lymphocytes (%) (Auto) 40.6, Monocytes (%) (Auto) 9.5, Eosinophils (%) (Auto) 1.3, Basophils (%) (Auto) 0.9, Sodium Level 143, Potassium Level 3.4L, Chloride Level 108H, Carbon Dioxide Level 27, Anion Gap 8, Blood Urea Nitrogen 31H, Creatinine 1.3, Estimat Glomerular Filtration Rate 55.9, Glucose Level 99, Uric Acid 6.2, Calcium Level 8.1L, Phosphorus Level 2.9, Magnesium Level 2.2, Total Bilirubin 0.5, Aspartate Amino Transf (AST/SGOT) 53H, Alanine Aminotransferase ( ALT/SGPT) 60, Alkaline Phosphatase 86, C-Reactive Protein, Quantitative 3.2H, Pro-B-Type Natriuretic Peptide 119, Total Protein 7.6, Albumin 2.3L, Globulin 5.3, Albumin/Globulin Ratio 0.4L Height (Feet): 5 Height (Inches): 11.00 Weight (Pounds): 194 General Appearance: no apparent distress Cardiovascular: normal rate Respiratory/Chest: decreased breath sounds Abdomen: distended Objective No change Adal Kenney MD May 09, 2020 13:23
--- NOTE | 2020-05-09 15:12 | Infectious Diseases Prog Note ---
Assessment/Plan Assessment/Plan IMPRESSION: 1. Sepsis with fever, and tachycardia. 2. COVID-19 disease, mild 3. Pressure ulcers. 4. Status post CVA with aphasia. 5. G-tube status. 6. COPD. 7. Hypertension. 8. Seizure disorder. 9. Anemia. 10. Acute renal failure. 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 RECOMMENDATION: Observe off of antibiotic Case was D/W RN Subjective ROS Limited/Unobtainable: Yes Constitutional: Reports: fever, other - Rc=684.9 last night Allergies: Coded Allergies: No Known Allergies (Unverified , 05/01/20) Objective Last 24 Hour Vital Signs Date Time Temp Pulse Resp B/P (MAP) Pulse Ox O2 Delivery O2 Flow Rate FiO2 05/09/20 12:00 98.8 83 24 131/73 (92) 95 05/09/20 09:00 Nasal Cannula 2.0 05/09/20 08:00 99.1 83 23 131/73 (92) 98 05/09/20 04:00 97.2 80 20 103/73 (83) 95 05/09/20 00:08 99.7 106 22 132/71 (91) 94 05/08/20 21:43 100.9 05/08/20 21:00 Nasal Cannula 2.0 05/08/20 20:00 100.4 103 20 129/75 (93) 94 05/08/20 16:00 98.7 82 18 125/69 (87) 95 Height (Feet): 5 Height (Inches): 11.00 Weight (Pounds): 194 General Appearance: no acute distress HEENT: mucous membranes moist Respiratory/Chest: other - oxygen by nasal cannula Cardiovascular: normal rate Abdomen: soft, non tender, other - GT feeding Extremities: no edema, other - contracted Skin: ulcers Neurologic/Psychiatric: aphasia Laboratory Tests Test 05/09/20 03:30 White Blood Count 3.8 K/UL (4.8-10.8) L Red Blood Count 3.35 M/UL (4.70-6.10) L Hemoglobin 9.2 G/DL (14.2-18.0) L Hematocrit 29.3 % (42.0-52.0) L Mean Corpuscular Volume 88 FL (80-99) Mean Corpuscular Hemoglobin 27.6 PG (27.0-31.0) Mean Corpuscular Hemoglobin Concent 31.5 G/DL (32.0-36.0) L Red Cell Distribution Width 13.2 % (11.6-14.8) Platelet Count 200 K/UL (150-450) Mean Platelet Volume 8.2 FL (6.5-10.1) Neutrophils (%) (Auto) 47.6 % (45.0-75.0) Lymphocytes (%) (Auto) 40.6 % (20.0-45.0) Monocytes (%) (Auto) 9.5 % (1.0-10.0) Eosinophils (%) (Auto) 1.3 % (0.0-3.0) Basophils (%) (Auto) 0.9 % (0.0-2.0) Sodium Level 143 MMOL/L (136-145) Potassium Level 3.4 MMOL/L (3.5-5.1) L Chloride Level 108 MMOL/L (98-107) H Carbon Dioxide Level 27 MMOL/L (21-32) Anion Gap 8 mmol/L (5-15) Blood Urea Nitrogen 31 mg/dL (7-18) H Creatinine 1.3 MG/DL (0.55-1.30) Estimat Glomerular Filtration Rate 55.9 mL/min (>60) Glucose Level 99 MG/DL (74-106) Uric Acid 6.2 MG/DL (2.6-7.2) Calcium Level 8.1 MG/DL (8.5-10.1) L Phosphorus Level 2.9 MG/DL (2.5-4.9) Magnesium Level 2.2 MG/DL (1.8-2.4) Total Bilirubin 0.5 MG/DL (0.2-1.0) Aspartate Amino Transf (AST/SGOT) 53 U/L (15-37) H Alanine Aminotransferase (ALT/SGPT) 60 U/L (12-78) Alkaline Phosphatase 86 U/L (46-116) C-Reactive Protein, Quantitative 3.2 mg/dL (0.00-0.90) H Pro-B-Type Natriuretic Peptide 119 pg/mL (0-125) Total Protein 7.6 G/DL (6.4-8.2) Albumin 2.3 G/DL (3.4-5.0) L Globulin 5.3 g/dL Albumin/Globulin Ratio 0.4 (1.0-2.7) L Current Medications Medications (Trade) Dose Ordered Sig/Negro Route PRN Reason Start Time Stop Time Status Last Admin Dose Admin Acetaminophen (Tylenol) 650 mg Q6H PRN GT Temp >100.5 05/04/20 21:00 06/01/20 20:59 05/08/20 21:13 Allopurinol (Zyloprim) 100 mg DAILY GT 05/05/20 09:00 06/02/20 10:59 05/09/20 08:45 Aspirin (ASA) 81 mg DAILY GT 05/05/20 09:00 06/17/20 08:59 05/09/20 08:44 Docusate Sodium (Colace) 100 mg THREE TIMES A DAY GT 05/04/20 18:00 06/01/20 12:59 05/09/20 12:46 Famotidine (Pepcid) 20 mg BID GT 05/04/20 18:00 07/31/20 17:59 05/09/20 08:44 Hydralazine HCl (Apresoline) 25 mg Q4H PRN GT BP over 160 systolic 05/04/20 17:00 07/31/20 16:59 Levetiracetam (Keppra) 500 mg Q12HR GT 05/04/20 21:00 06/16/20 10:59 05/09/20 08:44 Otoniel Narayan MD May 09, 2020 15:12
[2020-05-09 16:00] VITALS: BP 157/64
--- NOTE | 2020-05-09 16:44 | NUR ---
CASE MANAGEMENT:REVIEW SI;COVID PNA. SEPSIS. SHERRIE. AC MET ENCEPHALOPATHY. SEIZURE. 100.9 106 24 132/71 94% 2L NC WBC 3.8 K+ 3.4 CL 108 BUN 31 CA 8.1 AST 53 CRP 3.2 ALB 2.3 IS;ASA GT QD PEPCID GT BID KEPPRA GT Q12 K-DUR GT ONCE IVF NS @ 75 ML/HR MED SURG STATUS DCP;FROM [facility]; DC TO [facility] WHEN STABLE
--- NOTE | 2020-05-09 19:35 | NUR ---
NURSE HAND-OFF: Important Events on Shift: wound care. covid positive. Patient Status: stable Diet: GTF Jevity 1.2@20/hr Pending Orders: n/a Pending Results/Labs:n/a Pending MD notification:n/a Latest Vital Signs: Temperature 98.4 , Pulse 83 , B/P 157 /64 , Respiratory Rate 23 , O2 SAT 94 , Nasal Cannula, O2 Flow Rate 2.0 . Vital Sign Comment: stable Latest Bergman Fall Score: 50 Fall Risk: High Risk Safety Measures: Call light Within Reach, Bed Alarm Zone 1, Side Rails Side Rails x3, Bed position Low and Locked. Fall Precautions: Yellow Socks Yellow Gown Report given to ANUSHA Ross.
--- NOTE | 2020-05-09 19:40 | NUR ---
NURSE NOTES: Patient received in bed, obtunded, nonverbal. IV is intact and patent. FC draining, secured to leg. GT tolerating feeding at 20 ml/h. no residual noted. On o2 via NC, no SOB at this time. Will continue to monitor.
[2020-05-09 20:00] VITALS: BP 131/73
--- NOTE | 2020-05-09 20:47 | Cardiology Progress Note ---
Assessment/Plan Assessment/Plan 1. Sinus tachycardia, resolved, continue hydration. 2. Dyspnea, most likely COVID-19 pneumonitis. Brain-natriuretic peptide is now negative. 3. SHERRIE, creat down to 1.3. Subjective Subjective No cardiac events reported. Objective Last 24 Hour Vital Signs Date Time Temp Pulse Resp B/P (MAP) Pulse Ox O2 Delivery O2 Flow Rate FiO2 05/09/20 16:00 98.4 83 23 157/64 (95) 94 05/09/20 12:00 98.8 83 24 131/73 (92) 95 05/09/20 09:00 Nasal Cannula 2.0 05/09/20 08:00 99.1 83 23 131/73 (92) 98 05/09/20 04:00 97.2 80 20 103/73 (83) 95 05/09/20 00:08 99.7 106 22 132/71 (91) 94 05/08/20 21:43 100.9 05/08/20 21:00 Nasal Cannula 2.0 Intake and Output 05/08/20 05/09/20 19:00 07:00 Intake Total 1165 ml 1065 ml Output Total 700 ml 950 ml Balance 465 ml 115 ml Free Water 100 ml 100 ml IV Total 825 ml 825 ml Tube Feeding 240 ml 140 ml Output Urine Total 700 ml 950 ml # Voids 1 Laboratory Tests Test 05/09/20 03:30 White Blood Count 3.8 K/UL (4.8-10.8) L Red Blood Count 3.35 M/UL (4.70-6.10) L Hemoglobin 9.2 G/DL (14.2-18.0) L Hematocrit 29.3 % (42.0-52.0) L Mean Corpuscular Volume 88 FL (80-99) Mean Corpuscular Hemoglobin 27.6 PG (27.0-31.0) Mean Corpuscular Hemoglobin Concent 31.5 G/DL (32.0-36.0) L Red Cell Distribution Width 13.2 % (11.6-14.8) Platelet Count 200 K/UL (150-450) Mean Platelet Volume 8.2 FL (6.5-10.1) Neutrophils (%) (Auto) 47.6 % (45.0-75.0) Lymphocytes (%) (Auto) 40.6 % (20.0-45.0) Monocytes (%) (Auto) 9.5 % (1.0-10.0) Eosinophils (%) (Auto) 1.3 % (0.0-3.0) Basophils (%) (Auto) 0.9 % (0.0-2.0) Sodium Level 143 MMOL/L (136-145) Potassium Level 3.4 MMOL/L (3.5-5.1) L Chloride Level 108 MMOL/L (98-107) H Carbon Dioxide Level 27 MMOL/L (21-32) Anion Gap 8 mmol/L (5-15) Blood Urea Nitrogen 31 mg/dL (7-18) H Creatinine 1.3 MG/DL (0.55-1.30) Estimat Glomerular Filtration Rate 55.9 mL/min (>60) Glucose Level 99 MG/DL (74-106) Uric Acid 6.2 MG/DL (2.6-7.2) Calcium Level 8.1 MG/DL (8.5-10.1) L Phosphorus Level 2.9 MG/DL (2.5-4.9) Magnesium Level 2.2 MG/DL (1.8-2.4) Total Bilirubin 0.5 MG/DL (0.2-1.0) Aspartate Amino Transf (AST/SGOT) 53 U/L (15-37) H Alanine Aminotransferase (ALT/SGPT) 60 U/L (12-78) Alkaline Phosphatase 86 U/L (46-116) C-Reactive Protein, Quantitative 3.2 mg/dL (0.00-0.90) H Pro-B-Type Natriuretic Peptide 119 pg/mL (0-125) Total Protein 7.6 G/DL (6.4-8.2) Albumin 2.3 G/DL (3.4-5.0) L Globulin 5.3 g/dL Albumin/Globulin Ratio 0.4 (1.0-2.7) L Objective HEENT: Atraumatic and normocephalic. Anicteric. Pupils are equal, round, and reactive to light and accommodation. Extraocular muscles intact. The patient has a dysconjugate gaze. Positive dry mucosal membranes. Left ear with mild edema and dry blood. No active bleeding. NECK: JVP less than 5 cm. CARDIOVASCULAR: Normal S1, S2. Regular rhythm, no murmurs, gallops, or rubs. LUNGS: Clear to auscultation bilaterally. ABDOMEN: Soft, nontender, and nondistended. No hepatosplenomegaly. Presence of a G-tube. EXTREMITIES: Grimace to painful stimuli. Contracted limbs. Rhythmic movement of his mouth was appreciated. No edema, clubbing, or cyanosis. Timothy Vizcaino MD May 09, 2020 20:47
[2020-05-09] MEDS: Acetaminophen 650mg/20.3ml GT PRN (21:51)
--- NOTE | 2020-05-09 22:20 | General Progress Note ---
Assessment/Plan Problem List: (1) Seizure ICD Codes: R56.9 - Unspecified convulsions; J12.89 - Other viral pneumonia SNOMED: 89763285, 919473588 (2) Sepsis ICD Codes: A41.9 - Sepsis, unspecified organism SNOMED: 73957360, 952183637 Qualifiers: Qualified Codes: A41.9 - Sepsis, unspecified organism (3) SHERRIE (acute kidney injury) ICD Codes: N17.9 - Acute kidney failure, unspecified SNOMED: 65873879, 3358785 (4) Pneumonia due to COVID-19 virus ICD Codes: U07.1 - COVID-19; J12.89 - Other viral pneumonia SNOMED: 184500725, 044747048 (5) Anemia ICD Codes: D64.9 - Anemia, unspecified SNOMED: 028913869 (6) Acute metabolic encephalopathy ICD Codes: G93.41 - Metabolic encephalopathy; J12.89 - Other viral pneumonia SNOMED: 89969929, 267561385 Status: progressing, unchanged Assessment/Plan: covid positive pna seizure encephalopathy need clearance from id and pulmonary for dc to snf prn oxygen Subjective ROS Limited/Unobtainable: Yes Allergies: Coded Allergies: No Known Allergies (Unverified , 05/01/20) Objective Last 24 Hour Vital Signs Date Time Temp Pulse Resp B/P (MAP) Pulse Ox O2 Delivery O2 Flow Rate FiO2 05/09/20 20:00 99.1 83 23 131/73 (92) 98 05/09/20 16:00 98.4 83 23 157/64 (95) 94 05/09/20 12:00 98.8 83 24 131/73 (92) 95 05/09/20 09:00 Nasal Cannula 2.0 05/09/20 08:00 99.1 83 23 131/73 (92) 98 05/09/20 04:00 97.2 80 20 103/73 (83) 95 05/09/20 00:08 99.7 106 22 132/71 (91) 94 Intake and Output 05/08/20 05/09/20 19:00 07:00 Intake Total 1165 ml 1065 ml Output Total 700 ml 950 ml Balance 465 ml 115 ml Free Water 100 ml 100 ml IV Total 825 ml 825 ml Tube Feeding 240 ml 140 ml Output Urine Total 700 ml 950 ml # Voids 1 Laboratory Tests 8/19/20 03:30: White Blood Count 3.8L, Red Blood Count 3.35L, Hemoglobin 9.2L, Hematocrit 29.3L , Mean Corpuscular Volume 88, Mean Corpuscular Hemoglobin 27.6, Mean Corpuscular Hemoglobin Concent 31.5L, Red Cell Distribution Width 13.2, Platelet Count 200, Mean Platelet Volume 8.2, Neutrophils (%) (Auto) 47.6, Lymphocytes (%) (Auto) 40.6, Monocytes (%) (Auto) 9.5, Eosinophils (%) (Auto) 1.3, Basophils (%) (Auto) 0.9, Sodium Level 143, Potassium Level 3.4L, Chloride Level 108H, Carbon Dioxide Level 27, Anion Gap 8, Blood Urea Nitrogen 31H, Creatinine 1.3, Estimat Glomerular Filtration Rate 55.9, Glucose Level 99, Uric Acid 6.2, Calcium Level 8.1L, Phosphorus Level 2.9, Magnesium Level 2.2, Total Bilirubin 0.5, Aspartate Amino Transf (AST/SGOT) 53H, Alanine Aminotransferase ( ALT/SGPT) 60, Alkaline Phosphatase 86, C-Reactive Protein, Quantitative 3.2H, Pro-B-Type Natriuretic Peptide 119, Total Protein 7.6, Albumin 2.3L, Globulin 5.3, Albumin/Globulin Ratio 0.4L Height (Feet): 5 Height (Inches): 11.00 Weight (Pounds): 194 Juan J Navarro MD May 09, 2020 22:20
[2020-05-10 00:18] VITALS: BP 120/65
[2020-05-10 04:00] VITALS: BP 127/82
--- NOTE | 2020-05-10 07:59 | NUR ---
NURSE NOTES: Report received from ANUSHA Ross. Patient received in bed, non verbal and not responsive to verbal or tactile stimuli, no SOB, bed in lowest position with alarm on and breaks engaged, IV line present and intact on L hand, no s/sx of pain or discomfort upon assessment, on via NC at 2 L/min, on contact and droplet isolation for COVID 19, will continue to monitor and proceed with plan of care, call light within reach.
[2020-05-10 08:00] VITALS: BP 123/83
--- NOTE | 2020-05-10 08:00 | NUR ---
NURSE HAND-OFF: Important Events on Shift: febrile once last night, but temp stabilized. covid positive. Patient Status: stable, obtunded no change in condition overnight Diet: GTF Jevity 1.2@20/hr , no residual Pending Orders: n/a Pending Results/Labs:n/a Pending MD notification:n/a Vital Sign Comment: stable Latest Bergman Fall Score: 50 Fall Risk: High Risk Safety Measures: Call light Within Reach, Bed Alarm Zone 1, Side Rails Side Rails x3, Bed position Low and Locked. Fall Precautions: Yellow Socks Yellow Gown Report given to ANUSHA Villasenor.
[2020-05-10] MEDS: levETIRAcetam 500mg/5ml Liquid GT SCH (08:30)
[2020-05-10] MEDS: Aspirin Baby 81mg GT SCH (08:30)
[2020-05-10] MEDS: Docusate 100mg/10ml Liq GT SCH ×2 (08:31→13:00)
[2020-05-10] MEDS: Allopurinol 100mg Tab GT SCH (08:31)
--- NOTE | 2020-05-10 09:40 | Pulmonology Progress Note ---
Subjective ROS Limited/Unobtainable: Yes Interval Events: None new Constitutional: Reports: fever, other - Yw=885.9 last night HEENT: Repors: no symptoms Respiratory: Reports: dry cough, shortness of breath Cardiovascular: Reports: no symptoms Allergies: Coded Allergies: No Known Allergies (Unverified , 05/01/20) Objective Last 24 Hour Vital Signs Date Time Temp Pulse Resp B/P (MAP) Pulse Ox O2 Delivery O2 Flow Rate FiO2 05/10/20 09:00 Nasal Cannula 2.0 05/10/20 08:00 97.9 89 22 123/83 (96) 95 05/10/20 04:00 97.3 82 22 127/82 (97) 94 05/10/20 00:18 99.0 85 22 120/65 (83) 95 05/09/20 22:21 99.5 05/09/20 22:20 99.5 05/09/20 21:46 101.8 05/09/20 21:00 Nasal Cannula 2.0 05/09/20 20:00 99.1 83 23 131/73 (92) 98 05/09/20 16:00 98.4 83 23 157/64 (95) 94 05/09/20 12:00 98.8 83 24 131/73 (92) 95 Intake and Output 05/09/20 05/10/20 19:00 07:00 Output Total 900 ml 400 ml Balance -900 ml -400 ml Output Urine Total 900 ml 400 ml # Bowel Movements 1 General Appearance: no acute distress HEENT: normocephalic Respiratory: chest wall non-tender, lungs clear Cardiovascular: normal peripheral pulses, normal rate Abdomen: normal bowel sounds Current Medications Medications (Trade) Dose Ordered Sig/Negro Route PRN Reason Start Time Stop Time Status Last Admin Dose Admin Acetaminophen (Tylenol) 650 mg Q6H PRN GT Temp >100.5 05/04/20 21:00 06/01/20 20:59 05/09/20 21:51 Allopurinol (Zyloprim) 100 mg DAILY GT 05/05/20 09:00 06/02/20 10:59 05/10/20 08:31 Aspirin (ASA) 81 mg DAILY GT 05/05/20 09:00 06/17/20 08:59 05/10/20 08:30 Docusate Sodium (Colace) 100 mg THREE TIMES A DAY GT 05/04/20 18:00 06/01/20 12:59 05/10/20 08:31 Famotidine (Pepcid) 20 mg BID GT 05/04/20 18:00 07/31/20 17:59 05/10/20 08:30 Hydralazine HCl (Apresoline) 25 mg Q4H PRN GT BP over 160 systolic 05/04/20 17:00 07/31/20 16:59 Levetiracetam (Keppra) 500 mg Q12HR GT 05/04/20 21:00 06/16/20 10:59 05/10/20 08:30 Assessment/Plan Assessment/Plan IMPRESSION: 1. COVID-19 pneumonia. 2. Normoxemia. 3. Metabolic encephalopathy. 4. Seizure disorder. DISCUSSION: His Chest x-ray shows bilateral infiltrates. He has COVID-19 pneumonia. He has received steroids and Lovenox. 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 Agree with discharge plans Fritz Rebolledo Omar Syed MD May 10, 2020 09:40
--- NOTE | 2020-05-10 09:55 | NUR ---
*-*DISCHARGE PLANNING *-* PATIENT HAS BEEN REFERRED TO: [facility] LAILA ARRIAZA P: [phone] Addendum: 05/10/20 at 1339 by SAL TRAN LVN LVN CALL RECEIVED FROM [facility] JESS ARRIAZA [phone]. PROVIDED BED 315-A SKILLED RN TO CALL [phone] FOR NURSE TO NURSE REPORT. ASK FOR SNEHAL.
--- NOTE | 2020-05-10 10:12 | Nephrology Progress Note ---
Assessment/Plan Problem List: (1) SHERRIE (acute kidney injury) (2) Pneumonia due to COVID-19 virus (3) Sepsis (4) Acute metabolic encephalopathy (5) Seizure (6) Anemia Assessment Acute renal failure. Patient presents with serum creatinine of 1.6. Underlying chronic renal insufficiency. Serum creatinine 1.4 after hydration. Pneumonia due to COVID-19 virus Acute metabolic encephalopathy Seizures Sepsis Nonverbal, with GT feeding Anemia Plan May 10: No labs today. Continue to monitor renal parameters. Continue per consultants. May 09: Serum creatinine normalized. Will stop IV fluid. Will supplement potassium chloride 20 M EQ via GT once. Continue per outreach consultant May 08: Serum creatinine rhiannon to 1.6. Continue to monitor renal parameters. Continue per consultants advice. May 07: No labs done today. Check labs tomorrow May 06: No labs drawn today. Continue per consultants. May 05: Labs reviewed. Creatinine 1.4. Stable from renal standpoint of view. Continue per consultants. Previously: No labs drawn today. Will check renal parameters tomorrow. Stable from renal standpoint of view. Per ID Monitor renal parameters Albumin bolus Per orders Subjective ROS Limited/Unobtainable: Yes Objective Objective Last 24 Hour Vital Signs Date Time Temp Pulse Resp B/P (MAP) Pulse Ox O2 Delivery O2 Flow Rate FiO2 05/10/20 09:00 Nasal Cannula 2.0 05/10/20 08:00 97.9 89 22 123/83 (96) 95 05/10/20 04:00 97.3 82 22 127/82 (97) 94 05/10/20 00:18 99.0 85 22 120/65 (83) 95 05/09/20 22:21 99.5 05/09/20 22:20 99.5 05/09/20 21:46 101.8 05/09/20 21:00 Nasal Cannula 2.0 05/09/20 20:00 99.1 83 23 131/73 (92) 98 05/09/20 16:00 98.4 83 23 157/64 (95) 94 05/09/20 12:00 98.8 83 24 131/73 (92) 95 Intake and Output 05/09/20 05/10/20 19:00 07:00 Output Total 900 ml 400 ml Balance -900 ml -400 ml Output Urine Total 900 ml 400 ml # Bowel Movements 1 No labs drawn today Height (Feet): 5 Height (Inches): 11.00 Weight (Pounds): 193 General Appearance: no apparent distress, lethargic Respiratory/Chest: decreased breath sounds Abdomen: distended Objective No change Adal Kenney MD May 10, 2020 10:12
[2020-05-10 12:00] VITALS: BP 124/79
--- NOTE | 2020-05-10 12:38 | Infectious Diseases Prog Note ---
Assessment/Plan Assessment/Plan IMPRESSION: 1. Sepsis with fever, and tachycardia. 2. COVID-19 disease, mild 3. Pressure ulcers. 4. Status post CVA with aphasia. 5. G-tube status. 6. COPD. 7. Hypertension. 8. Seizure disorder. 9. Anemia. 10. Acute renal failure. 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 RECOMMENDATION: Observe off of antibiotic Case was D/W RN Subjective ROS Limited/Unobtainable: Yes Constitutional: Reports: fever, other - last night Allergies: Coded Allergies: No Known Allergies (Unverified , 05/01/20) Objective Last 24 Hour Vital Signs Date Time Temp Pulse Resp B/P (MAP) Pulse Ox O2 Delivery O2 Flow Rate FiO2 05/10/20 12:00 98.2 82 22 124/79 (94) 97 05/10/20 09:00 Nasal Cannula 2.0 05/10/20 08:00 97.9 89 22 123/83 (96) 95 05/10/20 04:00 97.3 82 22 127/82 (97) 94 05/10/20 00:18 99.0 85 22 120/65 (83) 95 05/09/20 22:21 99.5 05/09/20 22:20 99.5 05/09/20 21:46 101.8 05/09/20 21:00 Nasal Cannula 2.0 05/09/20 20:00 99.1 83 23 131/73 (92) 98 05/09/20 16:00 98.4 83 23 157/64 (95) 94 Height (Feet): 5 Height (Inches): 11.00 Weight (Pounds): 193 HEENT: mucous membranes moist Respiratory/Chest: other - oxygen by nasal cannula Cardiovascular: normal rate Abdomen: soft, non tender, other - GT feeding Extremities: no edema, other - contractures Neurologic/Psychiatric: aphasia Current Medications Medications (Trade) Dose Ordered Sig/Negro Route PRN Reason Start Time Stop Time Status Last Admin Dose Admin Acetaminophen (Tylenol) 650 mg Q6H PRN GT Temp >100.5 05/04/20 21:00 06/01/20 20:59 05/09/20 21:51 Allopurinol (Zyloprim) 100 mg DAILY GT 05/05/20 09:00 06/02/20 10:59 05/10/20 08:31 Aspirin (ASA) 81 mg DAILY GT 05/05/20 09:00 06/17/20 08:59 05/10/20 08:30 Docusate Sodium (Colace) 100 mg THREE TIMES A DAY GT 05/04/20 18:00 06/01/20 12:59 05/10/20 08:31 Famotidine (Pepcid) 20 mg BID GT 05/04/20 18:00 07/31/20 17:59 05/10/20 08:30 Hydralazine HCl (Apresoline) 25 mg Q4H PRN GT BP over 160 systolic 05/04/20 17:00 07/31/20 16:59 Levetiracetam (Keppra) 500 mg Q12HR GT 05/04/20 21:00 06/16/20 10:59 05/10/20 08:30 Otoniel Narayan MD May 10, 2020 12:37
--- NOTE | 2020-05-10 14:45 | NUR ---
*-*DISCHARGE PLANNED *-* PATIENT HAS BEEN ACCEPTED AND WILL BE DISCHARGED BACK TO: [facility] P: [phone] [id number] TRANSPORTATION SET FOR 3:45 S/W [place] [id number] PLACED A CALL TO PATIENTS BROTHER MANUEL, AND FELIX BUENO, NO ANSWER, LEFT A VOICE MESSAGE IN REGARDS TO DISCHARGE PLAN.
--- NOTE | 2020-05-10 16:29 | NUR ---
NURSE NOTES: Patient was discharged back to [facility] at 1627, discharge paper works completed, no belongings listed in inventory, medications from pharmacy sent with patient, ID band and IV line removed, no s/sx of any pain or discomfort upon discharge, vital signs WNL. Report called in to Gisele from SNF. Left a message with Ajith Maher (family member).
--- NOTE | 2020-05-14 11:44 | Discharge Summary ---
Discharge Summary Discharge Summary _ DATE OF ADMISSION: 05/01/2020 DATE OF DISCHARGE: 05/10/2020 DISCHARGED BY: Dr. Navarro REASON FOR ADMISSION: 60 years old male, resident of [facility] facility, with past medical history of seizure disorder, dysphagia, feeding by G-tube, hypertension, coronary artery disease, was sent for evaluation due to altered mental status. Per paramedics, the vast majority of the facility was positive for COVID. Upon evaluation patient required supplemental oxygen , was slightly tachycardic and febrile with temperature one 102. Rapid COVID was positive. Chest x-ray revealed right lower lobe infiltrates. Noted leukopenia with WBC 4.6, hemoglobin 12.3, hematocrit 30.3. BUN 40, creatinine 1.6. Troponin negative. EKG revealed sinus tachycardia, no acute ischemic changes. Albumin 3.3. Urinalysis revealed no evidence of urinary tract infection . CT of the head revealed no evidence of acute intracranial pathology. Bilateral old lacunar infarcts noted. In ED patient received steroid, Lovenox, Ceftriaxone and azithromycin , fluid bolus., antipyretic and admitted for further management. CONSULTANTS: toll bridge attendant Dr. Jose pulmonary Dr. Khoury ID specialist Dr. Otoniel Narayan quill reamer Dr. Kenney [facility] COURSE: Patient admitted to isolation room. Patient provided with empiric antibiotics and steroids. Blood culture initially revealed 1/2 Diphtheroids, likely contaminant , repeated blood cultures were negative. Supplemental oxygen provided and titrated to keep pulse oximetry above 92%. Pulmonary toilet provided. Prior to transfer pulse oximetry stable on 2 L. Fevers resolved . Patient was followed up with a chest x-ray Inflammatory markers were monitored to assess r the isk for cytokine storm. Echocardiogram demonstrated preserved ejection fraction of 60%. No evidence of wall motion abnormality. No clinical evidence of CHF exacerbation. Patient initially had sinus tachycardia, likely due to dehydration. Heart rate stabilized with hydration. Seizure precautions maintained. Keppra continued Renal parameters and electrolytes were closely monitored ,electrolytes corrected as needed , nephrotoxic's were avoided. Creatinine from initial 1.6 down to 1.3. Hemoglobin and hematocrit were closely monitored with goal to keep hemoglobin above 7. Prior to discharge hemoglobin 9.2 , hematocrit 29.3. Anemia work-up was consistent with anemia of chronic disease. Patient clinically stabilized and was ready for transfer to [facility] facility for continuation of care. FINAL DIAGNOSES: COVID-19 pneumonia Sepsis Acute metabolic encephalopathy Acute kidney injury Hypoxia Dehydration Hypernatremia Sinus tachycardia Seizure disorder Anemia DISCHARGE MEDICATIONS: See Medication Reconciliation list. DISCHARGE INSTRUCTIONS: Patient was discharged to the [facility] facility. Follow up with medical doctor at the facility. I have been assigned to dictate discharge summary for this account. I was not involved in the patient's management. Joya Harrell NP May 14, 2020 11:44
== END 2020-05-10 16:27 | DRG 871 ==
LOC: EDBD 22:25 → EMR 22:49 → 2E 23:07 → EDBEDREQ 23:58 → 4E 05-04 16:11
DX: A41.89 Other specified sepsis (principal); U07.1 COVID-19; G93.41 Metabolic encephalopathy; L89.893 Pressure ulcer of other site, stage 3; J12.89 Other viral pneumonia; N17.9 Acute kidney failure, unspecified; E44.1 Mild protein-calorie malnutrition; E87.0 Hyperosmolality and hypernatremia; Z43.1 Encounter for attention to gastrostomy; R65.20 Severe sepsis without septic shock; L89.302 Pressure ulcer of unspecified buttock, stage 2; I25.10 Atherosclerotic heart disease of native coronary artery without angina pectoris; K21.9 Gastro-esophageal reflux disease without esophagitis; G40.909 Epilepsy, unspecified, not intractable, without status epilepticus; R13.10 Dysphagia, unspecified; Z79.82 Long term (current) use of aspirin; D64.9 Anemia, unspecified; I69.320 Aphasia following cerebral infarction; I10 Essential (primary) hypertension; R09.02 Hypoxemia
CPT/HCPCS: 36415; 70450; 71045; 80048; 80053; 80076; 81003; 82607; 82728; 82746; 83540; 83550; 83605; 83735; 83880; 84100; 84443; 84484; 84550; 85007; 85025; 85379; 85384; 86140; 87040; 87081; 93306; 96361; 96365; 96368; 96372; 96375; 99285; J7030; J8499; U0002